=== PATIENT | male | born 1950 | race Hispanic/Latino ===

== ENCOUNTER 2018-09-24 11:35 | Observation (INO) | payer BC, OTHER ==
--- NOTE | 2018-09-24 12:26 | EKG ---
Test Date: 2018-09-24 Test Time: 11:39:35 Trading Specialist: BAILEY MEASUREMENT RESULTS: Intervals: Rate: 83 KS: 148 QRSD: 84 QT: 372 QTc: 437 [place]: P: 47 KS: 148 QRS: 14 T: 109 INTERPRETIVE STATEMENTS: Normal sinus rhythm Moderate voltage criteria for LVH, may be normal variant Inferior infarct, age undetermined Abnormal ECG Compared to ECG 12/22/2014 09:21:13 T-wave abnormality no longer present Possible ischemia no longer present Myocardial infarct finding still present Electronically Signed On 09-24-18 12:25:26 [employer] by Elvis Florez
--- NOTE | 2018-09-24 12:31 | RAD REPORT ---
EXAM DESCRIPTION: CT - Head Brain Wo Cont - 09/24/2018 12:17 pm CLINICAL HISTORY: HEADACHE Hypertension, headache, diabetes. COMPARISON: Head Brain Wo Cont dated 09/25/2016 TECHNIQUE: All CT scans are performed using dose optimization technique as appropriate and may inclu de automated exposure control or mA/KV adjustment according to patient size. FINDINGS: No intracranial hemorrhage, hydrocephalus or extra-axial fluid collection.No areas of brai n edema or evidence of midline shift. The paranasal sinuses and mastoids are clear. The calvarium is intact. Vertebral arteries are atheros clerotic. IMPRESSION: No acute intracranial abnormality.
[2018-09-24] MEDS ORDERED: ONDANSETRON 4 MG/2 ML VIAL ONE (12:41)
[2018-09-24] MEDS ORDERED: MORPHINE 4 MG/ML SYR ONE (12:41)
[2018-09-24 12:48] LABS: Absolute Lymphocytes (CBC) 0.6 K/uL (0.7-4.9); Absolute Monocytes 0.3 K/uL (0.1-1.3); Absolute Neutrophil 6.4 K/uL (1.8-8.0); Basophils % 0.3 % (0-1.3); Eosinophils % 5.2 % (0-4.4); Lymphocytes % 8.4 % (15.3-44.8); MPV 9.6 fL (7.6-11.3); Monocytes % 3.9 % (3.3-12.3); RBC Red Blood Cell Count 5.34 M/uL (4.33-5.43)
[2018-09-24 12:56] LABS: Protime INR 1.08
[2018-09-24 13:09] LABS: ALT/SGPT 66 U/L (12-78); AST/SGOT 43 U/L (15-37); Albumin 3.8 g/dL (3.4-5.0); Alkaline Phosphatase 70 U/L (45-117); BUN Blood Urea Nitrogen 15 mg/dL (7-18); Bicarbonate 27 mmol/L (21-32); Bilirubin Direct 0.2 mg/dL (0-0.2); Bilirubin Total 0.6 mg/dL (0.2-1.0); Glucose Level 158 mg/dL (74-106); Magnesium 1.7 mg/dL (1.8-2.4); NT PRO-BNP 44 pg/mL (<125); Potassium 4.1 mmol/L (3.5-5.1); Protein, Total 7.7 g/dL (6.4-8.2); Sodium Level 138 mmol/L (136-145); Troponin (Emerg Dept Use Only) < 0.02 ng/mL (0.0-0.045)
--- NOTE | 2018-09-24 13:50 | RAD REPORT ---
EXAM DESCRIPTION: Neela Single View09/24/2018 1:42 pm CLINICAL HISTORY: Chest pain COMPARISON: 2014 FINDINGS: The lungs appear clear of acute infiltrate. The heart is mildly enlarged. Postsurgical changes involve the chest. IMPRESSION: No acute abnormalities displayed
[2018-09-24] MEDS ORDERED: MAGNESIUM SULFATE 1 gm IVPB 1 GM/100 ML BAG IV ONE (13:57)
[2018-09-24] MEDS ORDERED: ACETAMINOPHEN 500 MG TAB ONE (14:03)
--- NOTE | 2018-09-24 15:04 | ER ---
Nurse's Notes [facility] Name: Jr Jane Age: 68 yrs Sex: Male : 1950 Arrival Date: 09/24/2018 Time: 11:40 Bed 19 Private MD: Diagnosis: Chest pain, unspecified Presentation: 09/24 11:41 Presenting complaint: EMS states: pt was at [facility] for appt, c/o midsternal chest iw pain, radiating from throat to chest, 04/19, also c/o headache and n/v. Transition of care: patient was not received from another setting of care. Onset of symptoms was September 24, 2018. Risk Assessment: Do you want to hurt yourself or someone else? Patient reports no desire to harm self or others. Initial Sepsis Screen: Does the patient meet any 2 criteria? No. Patient's initial sepsis screen is negative. Does the patient have a suspected source of infection? No. Patient's initial sepsis screen is negative. Care prior to arrival: IV initiated. 20 GA, in the right antecubital area. 11:41 Method Of Arrival: EMS: [facility] iw 11:41 Acuity: [place] 2 iw Historical: - Allergies: 11:42 PENICILLINS; iw - Home Meds: 11:49 atorvastatin 80 mg oral tab 1 tab once daily [Active]; cyanocobalamin (vitamin B-12) iw 1,000 mcg oral tab daily [Active]; gabapentin 300 mg oral cap twice a day [Active]; lisinopril 5 mg Oral tab 1 tab once daily [Active]; magnesium oxide 420 mg Oral tab daily [Active]; meloxicam 15 mg oral tab 1 tab once daily [Active]; metformin 1,000 mg Oral tr24 1 tab twice a day [Active]; ranitidine HCl 150 mg Oral cap 1 cap 2 times per day [Active]; aspirin 81 mg Oral chew 1 tab once daily [Active]; Tylenol oral oral [Active]; - PMHx: 11:42 Diabetes - NIDDM; Hypertension; Myocardial infarction; iw - PSHx: 11:42 CABG; iw - Immunization history:: Adult Immunizations up to date. - Ebola Screening: : Patient negative for fever greater than or equal to 101.5 degrees Fahrenheit, and additional compatible Ebola Virus Disease symptoms Patient denies exposure to infectious person Patient denies travel to an Ebola-affected area in the 21 days before illness onset No symptoms or risks identified at this time. - Social history:: Smoking status: unknown. Screenin:53 Abuse screen: Denies threats or abuse. Denies injuries from another. Nutritional jl7 screening: No deficits noted. Tuberculosis screening: No symptoms or risk factors identified. Fall Risk IV access (20 points). Total Valentine Fall Scale indicates No Risk (0-24 pts). Assessment: 11:53 General: Appears in no apparent distress. uncomfortable, Behavior is calm, cooperative, jl7 appropriate for age. Pain: Complains of pain in forehead and left eye Pain does not radiate. Pain currently is 8 out of 10 on a pain scale. Quality of pain is described as throbbing, Pain began this morning Is intermittent. Neuro: Level of Consciousness is awake, alert, obeys commands, Oriented to person, place, time, situation, Larry Car Operator are equal bilaterally. Cardiovascular: Heart tones S1 S2 present Patient's skin is warm and dry. Chest pain is denied Pt reports "[facility].". Respiratory: Reports shortness of breath at rest Airway is patent Respiratory effort is even, unlabored, Respiratory pattern is regular, symmetrical, Breath sounds are clear bilaterally. GI: No signs and/or symptoms were reported involving the gastrointestinal system. : No signs and/or symptoms were reported regarding the genitourinary system. EENT: No signs and/or symptoms were reported regarding the EENT system. Derm: Skin is pink, warm \\T\\ dry. Musculoskeletal: 13:00 Reassessment: Patient appears in no apparent distress at this time. Patient and/or jl7 family updated on plan of care and expected duration. Pain level reassessed. Patient is alert, oriented x 3, equal unlabored respirations, skin warm/dry/pink. 14:02 Reassessment: Pt c/o pain in the left leg, reports "I always have this pain." Rated jl7 12/18, ERP notified, see MAR for orders. 15:00 Reassessment: Patient appears in no apparent distress at this time. Patient and/or jl7 family updated on plan of care and expected duration. Pain level reassessed. Patient is alert, oriented x 3, equal unlabored respirations, skin warm/dry/pink. 15:55 Reassessment: Pt reports "I feel like I'm running a fever." Temp 100.2, ERP notified, jl see MAR for orders. Vital Signs: 11:51 BP 126 / 88; Pulse 84; Resp 18 S; Temp 99.5(O); Pulse Ox 98% on R/A; Weight 100.24 kg jl7 (R); Height 5 ft. 8 in. (172.72 cm) (R); Pain 8/10; 14:06 BP 132 / 74; Pulse 77; Resp 18; Pulse Ox 98% on 3 lpm NC; mh5 16:45 Temp 99.7; jl7 11:51 Body Mass Index 33.60 (100.24 kg, 172.72 cm) 7 ED Course: 11:40 Patient arrived in ED. iw 11:42 Triage completed. iw 11:44 Arm band placed on. iw 11:50 EKG done, by laboratory technical specialist. reviewed by Alvaro Merino MD. 3 11:51 Jarrod Rutledge, RN is Primary Nurse. jl7 11:53 Patient has correct armband on for positive identification. Bed in low position. Call [facility] light in reach. Side rails up X 1. recovery collector on. Pulse ox on. NIBP on. Warm blanket given. 11:53 Maintain EMS IV. Dressing intact. Good blood return noted. Site clean \\T\\ dry. Gauge \\T\\ jl 7 site: 20 right AC. Patient maintains SpO2 saturation greater than 95% on room air. 11:56 [facility]. cp 11:56 Alvaro Merino MD is Attending Physician. cp 12:14 CT completed. Patient tolerated procedure well. Patient moved to CT via wheelchair. jg6 Patient moved back from CT. 12:17 CT Head Brain wo Cont In Process Unspecified. EDMS 13:43 XRAY Chest (1 view) In Process Unspecified. EDMS 15:03 Alyson Wang MD is Hospitalizing Provider. cp 16:40 Influenza Screen (a \\T\\ B) Sent. jl7 16:58 Urine collected: clean catch specimen, clear. jl7 16:58 No provider procedures requiring assistance completed. Patient admitted, IV remains in 7 place. intact, No redness/swelling at site. Administered Medications: 12:30 Drug: Zofran 4 mg Route: IVP; Site: right antecubital; jl7 13:00 Follow up: Response: No adverse reaction jl7 12:32 Drug: morphine 2 mg Route: IVP; Site: right antecubital; jl7 13:00 Follow up: Response: No adverse reaction; Pain is decreased jl7 14:00 Drug: Magnesium Sulfate 1 grams Route: IVPB; Infused Over: 1 hrs; Site: right jl7 antecubital; 15:00 Follow up: Response: No adverse reaction; IV Status: Completed infusion jl7 14:06 Drug: Tylenol 1000 mg Route: PO; jl7 15:00 Follow up: Response: No adverse reaction; Pain is decreased jl7 15:58 Drug: Motrin 800 mg Route: PO; jl7 16:45 Follow up: Temp 99.7; Response: No adverse reaction; Temperature is decreased 7 Point of Care Testing: Blood Glucose: 11:51 Blood Glucose: 178 mg/dL; 7 Ranges: Outcome: 15:03 Decision to Hospitalize by Provider. cp 16:58 Admitted to Tele accompanied by tech, family with patient, via wheelchair, room 408, jl with oxygen, with chart, Report called to CHANTELLE Salazar 16:58 Condition: stable 16:58 Discharge instructions given to patient, family, Instructed on the need for admit, Demonstrated understanding of instructions. 17:00 Patient left the ED. 7 Signatures: Dispatcher [employer] Regine Herrera, Travis Laureano RN, PA PA cp Martinez, Maria 5 Jarrod Rutledge RN RN jl7 Lorraine James 3 Edie Monroe jg6
--- NOTE | 2018-09-24 15:04 | EDPHYS ---
Physician Documentation [facility] Name: Jr Jane Age: 68 yrs Sex: Male : 1950 Arrival Date: 09/24/2018 Time: 11:40 Bed 19 Private MD: ED Physician Alvaro Merino HPI: 09/24 12:10 This 68 yrs old Male presents to ER via EMS with complaints of Chest Pain. cp Historical: - Allergies: 11:42 PENICILLINS; iw - Home Meds: 11:49 atorvastatin 80 mg oral tab 1 tab once daily [Active]; cyanocobalamin (vitamin B-12) iw 1,000 mcg oral tab daily [Active]; gabapentin 300 mg oral cap twice a day [Active]; lisinopril 5 mg Oral tab 1 tab once daily [Active]; magnesium oxide 420 mg Oral tab daily [Active]; meloxicam 15 mg oral tab 1 tab once daily [Active]; metformin 1,000 mg Oral tr24 1 tab twice a day [Active]; ranitidine HCl 150 mg Oral cap 1 cap 2 times per day [Active]; aspirin 81 mg Oral chew 1 tab once daily [Active]; Tylenol oral oral [Active]; - PMHx: 11:42 Diabetes - NIDDM; Hypertension; Myocardial infarction; iw - PSHx: 11:42 CABG; iw - Immunization history:: Adult Immunizations up to date. - Ebola Screening: : Patient negative for fever greater than or equal to 101.5 degrees Fahrenheit, and additional compatible Ebola Virus Disease symptoms Patient denies exposure to infectious person Patient denies travel to an Ebola-affected area in the 21 days before illness onset No symptoms or risks identified at this time. - Social history:: Smoking status: unknown. ROS: 12:15 Constitutional: Negative for body aches, chills, fever, poor PO intake. cp 12:15 Eyes: Negative for injury, pain, redness, and discharge. cp 12:15 Neck: Positive for radiating pain. cp 12:15 Cardiovascular: Positive for chest pain, Negative for edema, palpitations. 12:15 Respiratory: Negative for cough, shortness of breath, wheezing. 12:15 Abdomen/GI: Negative for abdominal pain, nausea, vomiting, and diarrhea, black/tarry stool, rectal bleeding. 12:15 Back: Negative for pain at rest, pain with movement. 12:15 MS/extremity: Negative for paresthesias. 12:15 Skin: Negative for cellulitis, rash. 12:15 Neuro: Positive for headache, Negative for altered mental status, syncope, weakness. 12:15 All other systems are negative. Exam: 11:50 ECG was reviewed by the Attending Physician. cp 12:15 Constitutional: The patient appears in no acute distress, alert, awake, cp non-diaphoretic, non-toxic, well developed, well nourished. 12:15 Head/Face: Normocephalic, atraumatic. Eyes: Pupils equal round and reactive to light, cp extra-ocular motions intact. Lids and lashes normal. Conjunctiva and sclera are non-icteric and not injected. Cornea within normal limits. Periorbital areas with no swelling, redness, or edema. ENT: Nares patent. No nasal discharge, no septal abnormalities noted. Tympanic membranes are normal and external auditory canals are clear. Oropharynx with no redness, swelling, or masses, exudates, or evidence of obstruction, uvula midline. Mucous membranes moist. Neck: Trachea midline, no thyromegaly or masses palpated, and no cervical lymphadenopathy. Supple, full range of motion without nuchal rigidity, or vertebral point tenderness. No Meningismus. Chest/axilla: Normal chest wall appearance and motion. Nontender with no deformity. No lesions are appreciated. 12:15 Cardiovascular: Rate: normal, Rhythm: regular, Pulses: Pulses are 2+ in right radial artery and left radial artery. Edema: is not appreciated, JVD: is not appreciated. 12:15 Respiratory: the patient does not display signs of respiratory distress, Respirations: normal, no use of accessory muscles, no retractions, no splinting, no tachypnea, labored breathing, is not present, Breath sounds: are clear throughout, no decreased breath sounds, no stridor, no wheezing. 12:15 Abdomen/GI: Inspection: abdomen appears normal, Bowel sounds: active, all quadrants, Palpation: abdomen is soft and non-tender, in all quadrants. 12:15 Back: pain, is absent, ROM is normal. 12:15 Musculoskeletal/extremity: Exam is negative for decreased range of motion, deformity, injury. 12:15 Skin: cellulitis, is not appreciated, no rash present. 12:15 Neuro: Orientation: to person, place \T\ time. Mentation: is normal, Cerebellar function: is grossly normal, Motor: moves all fours, strength is normal, Sensation: is normal. Vital Signs: 11:51 BP 126 / 88; Pulse 84; Resp 18 S; Temp 99.5(O); Pulse Ox 98% on R/A; Weight 100.24 kg jl7 (R); Height 5 ft. 8 in. (172.72 cm) (R); Pain 8/10; 14:06 BP 132 / 74; Pulse 77; Resp 18; Pulse Ox 98% on 3 lpm NC; mh5 16:45 Temp 99.7; jl7 11:51 Body Mass Index 33.60 (100.24 kg, 172.72 cm) jl7 MDM: 11:56 Patient medically screened. cp 12:30 Differential diagnosis: acute myocardial infarction, acute pericarditis, chest wall cp pain, esophagitis, gastritis, pneumonia, pneumothorax, pulmonary embolus, stable angina, thoracic aortic disection, unstable angina. 15:00 The patient was not given aspirin in the Emergency Department. Patient reports taking aspirin within the past 24 hours. 15:00 Data reviewed: vital signs, nurses notes, lab test result(s), EKG, radiologic studies, cp plain films. Test interpretation: by ED physician or midlevel provider: ECG, plain radiologic studies. 15:01 Physician consultation: Alyson Wang MD was called at 15:01, was contacted at 15:02, regarding admission, to the telemetry unit. patient's condition. 09/24 12:03 Order name: Basic Metabolic Panel; Complete Time: 13:32 cp 09/24 12:03 Order name: CBC with Diff; Complete Time: 13:32 cp 09/24 12:03 Order name: LFT's; Complete Time: 13:32 cp 09/24 12:03 Order name: Magnesium; Complete Time: 13:32 cp 09/24 12:03 Order name: NT PRO-BNP; Complete Time: 13:32 cp 09/24 12:03 Order name: PT-INR; Complete Time: 13:32 cp 09/24 12:03 Order name: Troponin (emerg Dept Use Only); Complete Time: 13:32 cp 09/24 12:03 Order name: XRAY Chest (1 view); Complete Time: 13:56 cp 09/24 12:03 Order name: CT Head Brain wo Cont; Complete Time: 13:32 cp 09/24 15:54 Order name: Influenza Screen (a \T\ B) cp 09/24 16:49 Order name: Influenza Screen (A EDMS 09/24 12:03 Order name: EKG; Complete Time: 12:04 cp 09/24 12:03 Order name: Cardiac monitoring; Complete Time: 12:48 cp 09/24 12:03 Order name: EKG - Nurse/Tech; Complete Time: 12:47 cp 09/24 12:03 Order name: IV Saline Lock; Complete Time: 12:47 cp 09/24 12:03 Order name: Labs collected and sent; Complete Time: 12:47 cp 09/24 12:03 Order name: O2 Per Protocol; Complete Time: 12:47 cp 09/24 12:03 Order name: O2 Sat Monitoring; Complete Time: 12:47 cp 09/24 15:54 Order name: Urine Dipstick-Ancillary (obtain specimen); Complete Time: 16:40 cp EC:50 Rate is 83 beats/min. Rhythm is regular. KS interval is normal. QRS interval is normal. cp QT interval is normal. T waves are Inverted in lead aVL. Interpreted by me. Reviewed by me. Administered Medications: 12:30 Drug: Zofran 4 mg Route: IVP; Site: right antecubital; jl7 13:00 Follow up: Response: No adverse reaction jl7 12:32 Drug: morphine 2 mg Route: IVP; Site: right antecubital; jl7 13:00 Follow up: Response: No adverse reaction; Pain is decreased jl7 14:00 Drug: Magnesium Sulfate 1 grams Route: IVPB; Infused Over: 1 hrs; Site: right jl7 antecubital; 15:00 Follow up: Response: No adverse reaction; IV Status: Completed infusion jl7 14:06 Drug: Tylenol 1000 mg Route: PO; jl7 15:00 Follow up: Response: No adverse reaction; Pain is decreased jl7 15:58 Drug: Motrin 800 mg Route: PO; jl7 16:45 Follow up: Temp 99.7; Response: No adverse reaction; Temperature is decreased jl7 Point of Care Testing: Blood Glucose: 11:51 Blood Glucose: 178 mg/dL; jl7 Ranges: Critical Glucose Levels:Adult <50 mg/dl or >400 mg/dl <40 mg/dl or >180 mg/dl Disposition: 18:04 Co-signature as Attending Physician, Alvaro Merino MD Available for consultation at ps1 all times . Disposition: 09/24/18 15:03 Hospitalization ordered by Alyson Wang for Observation. Preliminary diagnosis is Chest pain, unspecified. - Bed requested for Telemetry/MedSurg (observation). - Status is Observation. jl7 - Condition is Stable. - Problem is new. - Symptoms have improved. UTI on Admission? No Signatures: Dispatcher [employer] EDMS Regine Rocha RN RN iw Solis, Maria ms Travis Doshi PA PA cp Leal, Jahala, RN RN jl7 Singer, Phillip, MD MD ps1 Corrections: (The following items were deleted from the chart) 15:56 15:03 Hospitalization Ordered by Alyson Wang MD for Observation. Preliminary diagnosis ms is Chest pain, unspecified. Bed requested for Telemetry/MedSurg (observation). Status is Observation. Condition is Stable. Problem is new. Symptoms have improved. UTI on Admission? No. cp 17:00 15:56 09/24/2018 15:03 Hospitalization Ordered by Alyson Wang MD for Observation. jl7 Preliminary diagnosis is Chest pain, unspecified. Bed requested for Telemetry/MedSurg (observation). Status is Observation. Condition is Stable. Problem is new. Symptoms have improved. UTI on Admission? No. ms
[2018-09-24] MEDS ORDERED: IBUPROFEN 400 MG TAB ONE (16:05)
[2018-09-24] MEDS ORDERED: ACETAMINOPHEN 500 MG TAB PO PRN (17:11)
[2018-09-24] MEDS ORDERED: MORPHINE 4 MG/ML SYR IV PRN ×2 (17:11→17:45)
[2018-09-24] MEDS: INSULIN -REGULAR HUMAN 50 UNIT/0.5 ML ML SQ SCH ×2 (17:11→21:00)
[2018-09-24 17:15] VITALS: BMI 33.5
[2018-09-24] MEDS ORDERED: NITROGLYCERIN 0.4 MG/TAB SL PRN (17:29)
[2018-09-24] MEDS ORDERED: TRAMADOL HCL 50 MG TAB PO PRN (17:48)
[2018-09-24] MEDS: ENOXAPARIN 40 MG/0.4 ML SQ SCH (17:50)
[2018-09-24] MEDS ORDERED: PNEUMOCOCCAL VACCINE 0.5 ML IMVAC ONE (18:00)
[2018-09-24 18:48] LABS: Urine Appearance CLEAR; Urine Blood NEGATIVE (NEG); Urine Color DK YELLOW; Urine Glucose NEGATIVE (NEG); Urine Protein TRACE (NEG); Urine Specific Gravity >=1.030 (1.005-1.030); Urine Urobilinogen 0.2 mg/dL (0.2-1.0); Urine pH 5.5 (5.0-7.0)
[2018-09-24 19:06] LABS: Urine Bilirubin NEGATIVE (NEG)
[2018-09-24 19:07] LABS: Urine Microscopic Reflex ORDER UMIC
[2018-09-24 19:16] LABS: Urine Bacteria <20 /HPF (NONE SEEN); Urine Culture Reflex Order NOT NEEDED; Urine RBC NONE SEEN /HPF (NONE SEEN)
[2018-09-24] MEDS ORDERED: MAGNESIUM HYDROXIDE 8% 30 ML PO ONE (20:37)
--- NOTE | 2018-09-24 20:50 | P.HP ---
Certification for Inpatient Patient admitted to: Observation Practitioner: I am a practitioner with admitting privileges, knowledge of patient current condition, hospital course, and medical plan of care. Services: Services provided to patient in accordance with Admission requirements found in Title 42 Section 412.3 of the Code of Federal Regulations Patient History Date of Service: 09/24/18 Reason for admission: Chest pain History of Present Illness: This is a 68 yr old male with hx of quadruple bypass, 7 coronary stent placements prior to the bypass, HTN, HLD, NIDDM, CAD admitted for chest pain. Per patient, chest pain started the morning of admission, while he was [facility]. It was substernal pressure like pain, radiating up to the neck and to his left shoulder/upper arm. It was associated with nausea, dizziness, and weakness. At baseline, pt states that he will use a walker at home if he needs it otherwise he does well. His weakness has been progressive and along with his chest pain, scared him and was brought to the ED via EMS. In the ED, his trop was negative x 1, EKG with NSR and evidence of LVH along with old infarct, and per ED, there was an attempt to transfer patient [facility] the [facility] that was unsuccessful as there were no beds available. At the time of my exam, patient was AAOx4, in no acute distress, was comfortably eating in bed and his only complain was a headache. His chest pain had completely resolved. Of note, patient's claims representative is at the [facility] but patient has not had any cardiac workup or seen his claims representative in 2 years. Allergies Penicillins Adverse Reaction (Verified 12/21/14 21:58) chest feels like it will explode PCN Allergy (Uncoded 12/24/14 18:45) Unknown Home Medications: Cyanocobalamin (Vitamin B-12) [Vitamin B-12] 1,000 mcg PO DAILY 07/12/12 Ferrous Gluconate 325 mg PO BID 07/12/12 Metformin HCl 500 mg PO BID 07/12/12 Metoprolol Tartrate 25 mg PO BID #0 tablet 07/13/12 Atorvastatin Calcium [Lipitor] 40 mg PO DAILY 12/21/14 Cyclobenzaprine [Flexeril*] 10 mg PO BIDP PRN 12/21/14 Ciprofloxacin HCl [Cipro 500 MG Tablet] 500 mg PO BID #14 tablet 12/24/14 - Past Medical/Surgical History Has patient received pneumonia vaccine in the past: No Diabetic: Yes -: HIGH CHOLESTEROL -: HTN -: NIDDM -: CHEST WALL INJURY -: CABG - Social History Smoking Status: Former smoker Alcohol use: No CD- Drugs: No Caffeine use: No Place of Residence: Home Review of Systems 10-point ROS is otherwise unremarkable Physical Examination - Vital Signs Temperature: 99.7 F Blood Pressure: 132/74 Pulse: 77 Respirations: 18 - Physical Exam General: Alert, In no apparent distress, Oriented x3 HEENT: Atraumatic, PERRLA, Mucous membr. moist/pink, EOMI, Sclerae nonicteric Neck: Supple, 2+ carotid pulse no bruit, No LAD, Without JVD or thyroid abnormality Respiratory: Clear to auscultation bilaterally, Normal air movement Cardiovascular: Regular rate/rhythm, Normal S1 S2 Gastrointestinal: Normal bowel sounds, No tenderness Musculoskeletal: No tenderness Integumentary: No rashes Neurological: Normal gait, Normal speech, Normal strength at 5/5 x4 extr, Normal tone, Normal affect Lymphatics: No axilla or inguinal lymphadenopathy - Studies Laboratory Data (last 24 hrs) 09/24/18 12:00: PT 12.7 H, INR 1.08 09/24/18 12:00: WBC 7.8, Hgb 15.4, Hct 45.0, Plt Count 160 09/24/18 12:00: Sodium 138, Potassium 4.1, BUN 15, Creatinine 0.99, Glucose 158 H, Magnesium 1.7 L, Total Bilirubin 0.6, AST 43 H, ALT 66, Alkaline Phosphatase 70 Assessment and Plan - Problems (Diagnosis) (1) Chest pain Onset Date: 12/22/14 Current Visit: No Status: Acute Qualifiers: Chest pain type: unspecified Qualified Code(s): R07.9 - Chest pain, unspecified (2) Hypertension Current Visit: Yes Status: Acute Qualifiers: Hypertension type: essential hypertension Qualified Code(s): I10 - Essential (primary) hypertension (3) HLD (hyperlipidemia) Current Visit: Yes Status: Acute Qualifiers: Hyperlipidemia type: unspecified Qualified Code(s): E78.5 - Hyperlipidemia , unspecified (4) CAD (coronary artery disease) Current Visit: Yes Status: Chronic Qualifiers: Coronary Disease-Associated Artery/Lesion type: [place] artery [place] vs. 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 insulin use: without chainsaw mechanic use Diabetes mellitus complication status: with hyperglycemia Qualified Code(s): E11.65 - Type 2 diabetes mellitus with hyperglycemia (8) Obesity (BMI 30-39.9) Current Visit: Yes Status: Chronic - Plan Chest pain, R/O ACS High risk patient: Prior CABG, stent placement, HTN, HLD, obesity, former smoker (quit in ') Chest guidelines started (pt unsure of his home medications at this time) Trend troponin, serial EKG Cardiology consult Morphine prn pain, Nitro prn cp, O2 per protocol ECHO ordered, pending HTN, essential Stable, will continue home meds as pt will get the list tomorrow NIDDM, type 2 Accu-checks and mild sliding scale insulin protocol HLD Continue home statin CAD Hx of cardiac cath Hx of coronary stenting Morbid obesity, BMI of 33.6 DVT prophylaxis: ASA and plavix GI prophylaxis: None Diet: Heart healthy, NPO after midnight Dispo: Pending cardiology evaluation. - Advance Directives Does patient have a Living Will: No Does patient have a Durable POA for Healthcare: Yes
[2018-09-24] MEDS: ATORVASTATIN 40 MG TAB PO SCH (21:26)
[2018-09-25] MEDS: METOPROLOL TAR 25 MG TAB PO SCH ×2 (06:00→17:03)
[2018-09-25 06:15] LABS: Absolute Lymphocytes (CBC) 0.4 K/uL (0.7-4.9); Absolute Monocytes 0.3 K/uL (0.1-1.3); Basophils % 0.2 % (0-1.3); Eosinophils % 6.9 % (0-4.4); Hematocrit 41.9 % (39.6-49.0); Lymphocytes % 8.6 % (15.3-44.8); MPV 9.2 fL (7.6-11.3); Monocytes % 6.2 % (3.3-12.3); RBC Red Blood Cell Count 5.05 M/uL (4.33-5.43)
[2018-09-25 06:47] LABS: Albumin 3.3 g/dL (3.4-5.0); Bilirubin Total 0.7 mg/dL (0.2-1.0); Potassium 3.8 mmol/L (3.5-5.1); Protein, Total 6.8 g/dL (6.4-8.2)
[2018-09-25] MEDS ORDERED: MAGNESIUM SULFATE 1 gm IVPB 1 GM/100 ML BAG IV ONE (07:29)
[2018-09-25] MEDS: INSULIN -REGULAR HUMAN 50 UNIT/0.5 ML ML SQ SCH ×4 (07:30→21:00)
[2018-09-25] MEDS ORDERED: KCL 20 MEQ/100 mL IVPB 20 MEQ/100 ML BAG IV SCH (08:00)
[2018-09-25] MEDS: ENOXAPARIN 40 MG/0.4 ML SQ SCH (08:28)
[2018-09-25] MEDS: LISINOPRIL 10 MG TAB PO SCH (08:28)
[2018-09-25] MEDS ORDERED: NA CHLORIDE 0.9% 100 ML ONE (08:33)
--- NOTE | 2018-09-25 12:30 | CON ---
CARDIOLOGY CONSULT History Of Present Illness: Mr. Jane is 68. He came to the hospital at the insistence of the doc [facility] the [facility] because he is having chest pain. He has had chest pain for several months. It is not particularly worse recently than it has been. Does not seem to be related to exertion, meals or time of day, body position. He has a history of CAD. He has had 7 different coronary stent proc edures done at various hospitals. We have none of those records. coronary intervention. He is a reluctant patient to go see the doctor and when he finally went to see the doctors at the [facility] , they thought he was having too much chest pain and placed him in the hospital and sent him to our h ospital. Since he has been here overnight, he does not have any chest pain, has normal enzymes. His electrocardiograms cannot show an injury pattern or a convincing ischemia pattern. Home Medications: Atorvastatin 80, vitamin B12 tablets sublingual, gabapentin, lisinopril 5, magnesi um oxide 420, meloxicam 15, metformin 1000 twice a day, ranitidine 150 Allergies: HE IS ALLERGIC TO PENICILLIN. Social History: He uses no tobacco. He quit when he started having coronary heart problem. Physical Examination: General: He is alert, oriented, pleasant, not in distress. Vital Signs: 5 feet 8 inches, 221 pounds, centripetal obesity. HEENT: Normal. Lungs: Clear. Heart: S4 gallop, otherwise normal. Abdomen: Soft Extremities: Palpable pulses. No cyanosis, clubbing, or edema. Laboratory Data: EKG; LVH, nonspecific repolarization abnormality, old inferior infarction. Chest x -ray; no acute abnormality. Sternal wires are noted in the report as we would expect. His troponin levels are all less than 0.02. His complete blood count is normal. Blood sugars have been 137 . Impression: Mr. Jane has coronary artery disease with chest pain. We should do a pharmacologic n uclear stress test and see what we learn. If he needs a heart cath, we can do that. DONATO/PATRICK Voice ID: [id number] Report ID: [id number]
--- NOTE | 2018-09-25 12:40 | P.PN ---
Subjective Date of Service: 09/25/18 Chief Complaint: Chest pain Subjective: No C/O voiced, Improving Patient seen and examined at bedside. at bedside. Chart reviewed and case discussed with nursing staff. Review of Systems 10-point ROS is otherwise unremarkable Physical Examination - Vital Signs Temperature: 97.3 F Blood Pressure: 134/72 Pulse: 78 Respirations: 18 Pulse Ox (%): 96 - Physical Exam General: Alert, In no apparent distress, Oriented x3 HEENT: Atraumatic, PERRLA, EOMI Neck: Supple, JVD not distended Respiratory: Clear to auscultation bilaterally, Normal air movement Cardiovascular: Regular rate/rhythm, Normal S1 S2 Gastrointestinal: Normal bowel sounds, No tenderness Musculoskeletal: No tenderness Integumentary: No rashes Neurological: Normal speech, Normal tone, Normal affect Lymphatics: No axilla or inguinal lymphadenopathy - Studies Laboratory Data (last 24 hrs) 09/24/18 12:00: PT 12.7 H, INR 1.08 09/24/18 12:00: WBC 7.8, Hgb 15.4, Hct 45.0, Plt Count 160 09/24/18 12:00: Sodium 138, Potassium 4.1, BUN 15, Creatinine 0.99, Glucose 158 H, Magnesium 1.7 L, Total Bilirubin 0.6, AST 43 H, ALT 66, Alkaline Phosphatase 70 Assessment And Plan - Current Problems (Diagnosis) (1) Chest pain Onset Date: 12/22/14 Current Visit: No Status: Acute Qualifiers: Chest pain type: unspecified Qualified Code(s): R07.9 - Chest pain, unspecified (2) Hypertension Onset Date: 09/25/18 Current Visit: Yes Status: Acute Qualifiers: Hypertension type: essential hypertension Qualified Code(s): I10 - Essential (primary) hypertension (3) HLD (hyperlipidemia) Onset Date: 09/25/18 Current Visit: Yes Status: Acute Qualifiers: Hyperlipidemia type: unspecified Qualified Code(s): E78.5 - Hyperlipidemia , unspecified (4) CAD (coronary artery disease) Onset Date: 09/25/18 Current Visit: Yes Status: Chronic Qualifiers: Coronary Disease-Associated Artery/Lesion type: [place] artery [place] vs. transplanted heart: [place] heart Associated angina: with stable angina Qualified Code(s): I25.118 - Atherosclerotic heart disease of [place] coronary artery with other forms of angina pectoris (5) Hx of four vessel coronary artery bypass graft Current Visit: Yes Status: Chronic (6) History of coronary artery stent placement Current Visit: Yes Status: Chronic (7) Diabetes mellitus Onset Date: 09/25/18 Current Visit: Yes Status: Acute Qualifiers: Diabetes mellitus type: type 2 Diabetes mellitus detention insulin use: without rat exterminator use Diabetes mellitus complication status: with hyperglycemia Qualified Code(s): E11.65 - Type 2 diabetes mellitus with hyperglycemia (8) Obesity (BMI 30-39.9) Onset Date: 09/25/18 Current Visit: Yes Status: Chronic - Plan Chest pain, R/O ACS High risk patient: Prior CABG, stent placement, HTN, HLD, obesity, former smoker (quit in 's) Continue Chest guidelines (pt unsure of his home medications at this time) Troponins negative x3, EKG without any acute abnormality Cardiology consult, recommendations appreciated Morphine prn pain, Nitro prn cp, O2 per protocol ECHO ordered, pending Stress test per cardiology HTN, essential Stable, will continue home meds as pt will get the list tomorrow NIDDM, type 2 Accu-checks and mild sliding scale insulin protocol HLD Continue home statin CAD Hx of cardiac cath Hx of coronary stenting Morbid obesity, BMI of 33.6 DVT prophylaxis: ASA and plavix GI prophylaxis: None Diet: NPO, pending stress test Dispo: Pending cardiology evaluation/stress test Time Spent Managing PTS Care (In Minutes): 35
[2018-09-25] MEDS ORDERED: REGADENOSON 0.4 MG/5 ML SYR IV ONE (13:38)
--- NOTE | 2018-09-25 14:17 | ECHO ---
HEIGHT: 5 ft 8 in WEIGHT: 221 lb 0 oz DATE OF STUDY: 09/25/[address]: Alyson Wang MD 2-DIMENSIONAL: YES M.MODE: YES DOPPLER: YES COLOR FLOW: YES TDS: NO PORTABLE: NO DEFINITY: NO BUBBLE STUDY: NO DIAGNOSIS: CHEST PAIN CARDIAC HISTORY: CATHERIZATION: YES SURGERY: YES PROSTHETIC VALVE: NO PACEMAKER: NO MEASUREMENTS (cm) DIASTOLIC (NORMALS) SYSTOLIC (NORMALS) IVSd 1.2 (0.6-1.2) LA Diam 4.7 (1.9-4.0) LVEF 60-69% LVIDd 4.0 (3.5-5.7) LVIDs 3.2 (2.0-3.5) %FS 21% LVPWd 1.2 (0.6-1.2) Ao Diam 3.2 (2.0-3.7) 2 DIMENSIONAL ASSESSMENT: RIGHT ATRIUM: NORMAL LEFT ATRIUM: DILATED RIGHT VENTRICLE: NORMAL LEFT VENTRICLE: NORMAL TRICUSPID VALVE: NORMAL MITRAL VALVE: NORMAL PULMONIC VALVE: NORMAL AORTIC VALVE: NORMAL PERICARDIAL EFFUSION: NONE AORTIC ROOT: NORMAL LEFT VENTRICULAR WALL MOTION: PARADOXICAL SEPTAL MOTION, OTHERWISE NORMAL. DOPPLER/COLOR FLOW: NORMAL COMMENTS: NORMAL LEFT VENTRICULAR EJECTION FRACTION WITH PARADOXICAL SEPTAL MOTION SEEN WITH CORONARY ARTERY BYPASS GRAFT. DILATED LEFT ATRIUM. OTHERWISE NORMAL 2D ECHOCARDIOGRAM WITH DOPPLER. TECHNOLOGIST: Allison LARA
--- NOTE | 2018-09-25 15:07 | RAD REPORT ---
EXAM DESCRIPTION: [facility] - Rest Stress Cardiac Imaging - 09/25/2018 2:54 pm CLINICAL HISTORY: CHEST PAIN Chest pain. COMPARISON: REST STRESS CARDIAC dated 12/23/2014 TECHNIQUE: The patient was administered approximately 10mCi of Tc 99m Sestamibi prior to resting SPE CT imaging of the heart. The patient was then administered approximately 30 mCi of Tc 99m Sestamibi f ollowing exercise or pharmacologic stress. Multiplanar SPECT images were reviewed. FINDINGS: No stress induced ischemic defect is seen to suggest stress induced ischemia. No fixed def ect is seen to suggest hibernating myocardium or scarred myocardium. The end diastolic volume is 109 ml, the end systolic volume is 49 ml, and the ejection fraction is 55 %. IMPRESSION: No stress induced ischemia.
--- NOTE | 2018-09-25 15:38 | TREADPHA ---
DX: CHEST PAIN Date of Study: 09/25/2018 Ht: 5 8 Wt: 221 lb 0 oz Consulting Physician: DR. CEDILLO MEDICATIONS: TYLENOL, LIPITOR, LOVENOX, NOVALIN, PRINIVIL, LOPRESSOR, MORPHINE SULFATE, NITROSTAT, ULTRAM HISTORY: 68 YEAR OLD MALE WITH COMPLAINTS OF CHEST PAIN, VOMMITING AND NAUSEA, HEADACHE. MEDICAL HISTORY: MYOCARDIAL INFARCTION, HYPERTENSION, HIGH CHOLESTEROL, NON-INSULIN DEPENDENT DIABETES MELLITUS, CORONARY ARTERY BYPASS GRAFT-2010. NON SMOKER, NON DRINKER. PHYSICIAL EXAMINATION: RESTING B.P.: 124/77 RESTING H.R.: 81 RESTING EKG: NORMAL SINUS. INFERIOR MYOCARDIAL INFARCTION. PROTOCOL: LEXISCAN EXERCISE TIME: 3:30 B.P. AT [place] STRESS: 124/68 IMPRESSION: LEXISCAN INJECTED, FOLLOWED BY CARDIOLITE PER PROTOCOL. SEE NUCLEAR MEDICINE REPORT. NO SUPRAVENTRICULAR TACHYCARDIA. NO VENTRICULAR TACHYCARDIA. NO PREMATURE ATRIAL COMPLEXES. NO PREMATURE VENTRICULAR COMPLEXES. PATIENT REPORTS 0/10 CHEST PAIN OR TIGHTNESS THROUGHOUT PRECEDURE AND DURING RECOVERY. NONDIAGNOSTIC ELECTROCARDIOGRAM LEXISCAN STUDY.
[2018-09-25] MEDS: ATORVASTATIN 40 MG TAB PO SCH (21:08)
[2018-09-26 04:37] LABS: Magnesium 2.3 mg/dL (1.8-2.4); Potassium 4.1 mmol/L (3.5-5.1)
[2018-09-26] MEDS: METOPROLOL TAR 25 MG TAB PO SCH (06:05)
[2018-09-26] MEDS: INSULIN -REGULAR HUMAN 50 UNIT/0.5 ML ML SQ SCH (07:30)
[2018-09-26 09:01] VITALS: BP 99/64; TEMP 98.2
[2018-09-26] MEDS: LISINOPRIL 10 MG TAB PO SCH (09:05)
[2018-09-26] MEDS: ENOXAPARIN 40 MG/0.4 ML SQ SCH (09:05)
[2018-09-26 11:02] VITALS: O2SAT 99
--- NOTE | 2018-09-26 12:01 | P.SSS ---
Patient History Date of Service: 09/26/18 Primary Care Provider: [facility] Reason for admission: Chest pain History of Present Illness: This is a 68 yr old male with hx of quadruple bypass, 7 coronary stent placements prior to the bypass, HTN, HLD, NIDDM, CAD admitted for chest pain. Per patient, chest pain started the morning of admission, while he was sitting at the [facility] for his regular appointment. It was substernal pressure like pain, radiating up to the neck and to his left shoulder/upper arm. It was associated with nausea, dizziness, and weakness. At baseline, pt states that he will use a walker at home if he needs it otherwise he does well. His weakness has been progressive and along with his chest pain, scared him and was brought to the ED via EMS. In the ED, his trop was negative x 1, EKG with NSR and evidence of LVH along with old infarct, and per ED, there was an attempt to transfer patient to the [facility] that was unsuccessful as there were no beds available. At the time of my exam, patient was AAOx4, in no acute distress, was comfortably eating in bed and his only complain was a headache. His chest pain had completely resolved. Of note, patient's enrollment nurse is at the [facility] but patient has not had any cardiac workup or seen his enrollment nurse in 2 years. Allergies Penicillins Adverse Reaction (Verified 12/21/14 21:58) chest feels like it will explode PCN Allergy (Uncoded 12/24/14 18:45) Unknown Home Medications: Acetaminophen 500 mg PO DAILY PRN 09/25/18 Amitriptyline [Elavil*] 1 tab PO BEDTIME 09/25/18 Aspirin 81 mg PO DAILY 09/25/18 Atorvastatin Calcium [Lipitor] 40 mg PO BEDTIME 09/25/18 Cyanocobalamin (Vitamin B-12) [Vitamin B-12] 1,000 mcg PO DAILY 09/25/18 Lisinopril 5 mg PO DAILY 09/25/18 Magnesium Oxide 420 mg PO BEDTIME 09/25/18 Meloxicam 15 mg PO DAILY 09/25/18 Metformin HCl 1,000 mg PO BID 09/25/18 Ranitidine HCl [Zantac] 150 mg PO BID 09/25/18 Metoprolol Tartrate [Lopressor*] 12.5 mg PO BID #30 tab 09/26/18 - Past Medical/Surgical History Has patient received pneumonia vaccine in the past: No Diabetic: Yes -: HIGH CHOLESTEROL -: HTN -: NIDDM -: CHEST WALL INJURY -: CABG - Social History Smoking Status: Former smoker Alcohol use: No CD- Drugs: No Caffeine use: No Place of Residence: Home Review of Systems 10-point ROS is otherwise unremarkable Physical Examination - Vital Signs Temperature: 98.2 F Blood Pressure: 99/64 Pulse: 63 Respirations: 16 Pulse Ox (%): 100 - Physical Exam General: Alert, In no apparent distress, Oriented x3 HEENT: Atraumatic, PERRLA, Mucous membr. moist/pink, EOMI, Sclerae nonicteric Neck: Supple, 2+ carotid pulse no bruit, No LAD, Without JVD or thyroid abnormality Respiratory: Clear to auscultation bilaterally, Normal air movement Cardiovascular: Regular rate/rhythm, Normal S1 S2 Gastrointestinal: Normal bowel sounds, No tenderness Musculoskeletal: No tenderness Integumentary: No rashes Neurological: Normal gait, Normal speech, Normal strength at 5/5 x4 extr, Normal tone, Normal affect Lymphatics: No axilla or inguinal lymphadenopathy - Diagnosis (Problem(s)) (1) Chest pain Onset Date: 12/22/14 Current Visit: No Status: Acute Qualifiers: Chest pain type: unspecified Qualified Code(s): R07.9 - Chest pain, unspecified (2) Hypertension Onset Date: 09/25/18 Current Visit: Yes Status: Acute Qualifiers: Hypertension type: essential hypertension Qualified Code(s): I10 - Essential (primary) hypertension (3) HLD (hyperlipidemia) Onset Date: 09/25/18 Current Visit: Yes Status: Acute Qualifiers: Hyperlipidemia type: unspecified Qualified Code(s): E78.5 - Hyperlipidemia , unspecified (4) CAD (coronary artery disease) Onset Date: 09/25/18 Current Visit: Yes Status: Chronic Qualifiers: Coronary Disease-Associated Artery/Lesion type: [place] artery [place] vs. transplanted heart: [place] heart Associated angina: with stable angina Qualified Code(s): I25.118 - Atherosclerotic heart disease of [place] coronary artery with other forms of angina pectoris (5) Hx of four vessel coronary artery bypass graft Current Visit: Yes Status: Chronic (6) History of coronary artery stent placement Current Visit: Yes Status: Chronic (7) Diabetes mellitus Onset Date: 09/25/18 Current Visit: Yes Status: Acute Qualifiers: Diabetes mellitus type: type 2 Diabetes mellitus snf insulin use: without snf use Diabetes mellitus complication status: with hyperglycemia Qualified Code(s): E11.65 - Type 2 diabetes mellitus with hyperglycemia (8) Obesity (BMI 30-39.9) Onset Date: 09/25/18 Current Visit: Yes Status: Chronic Treatment Summary: Chest pain High risk patient: Prior CABG, stent placement, HTN, HLD, obesity, former smoker (quit in 's) Started on metoprolol, PORTILLO-inhibitor, aspirin and Plavix along with statin. Medications changed over to home medications with the reconciled. Troponins negative x3, EKG without any acute abnormality Cardiology consulted, cleared for discharge Morphine prn pain, Nitro prn cp, O2 per protocol - chest pain improved, almost resolved. ECHO unremarkable. Negative stress test He remained hemodynamically stable, alert oriented x3 and otherwise stable throughout the stay. He will need to follow up with his outpatient enrollment nurse in the next 2 weeks. Counseled on importance of following up outpatient with Cardiology and primary care physicians. HTN, essential Remained stable Added metoprolol at discharge NIDDM, type 2 HLD CAD Hx of cardiac cath Hx of coronary stenting Morbid obesity, BMI of 33.6 counseled on lifestyle modifications with diet and exercise. Stable, no medication changes made at the time of discharge - Disposition Disposition: ROUTINE DISCHARGE Condition: GOOD Consultations: Cardiology Patient Discharge Instructions: Please follow up with the primary care physician 1 week. Please follow up with the primary enrollment nurse in 1-2 weeks. New medication: Metoprolol Diet: AHA Activity: Ad edna Time Spent Managing Pts Care (In Minutes): 55
== END 2018-09-26 12:14 | disposition home or self-care (01) ==
LOC: ER 11:35 → ERHOLD 15:23 → 4TH 16:52
PROVIDERS: ADMIT Family Medicine; ATTEND Family Medicine
DX: R07.9 Chest pain, unspecified (principal); I10 Essential (primary) hypertension; E78.5 Hyperlipidemia, unspecified; I25.10 Atherosclerotic heart disease of native coronary artery without angina pectoris; E11.9 Type 2 diabetes mellitus without complications; Z95.1 Presence of aortocoronary bypass graft; Z87.891 Personal history of nicotine dependence; E66.9 Obesity, unspecified; Z68.33 Body mass index [BMI] 33.0-33.9, adult; Z95.5 Presence of coronary angioplasty implant and graft; Z88.0 Allergy status to penicillin
CPT/HCPCS: 36415; 70450; 71045; 78452; 80048; 80053; 80076; 81003; 81015; 82962; 83735; 83880; 84484; 85025; 85610; 87086; 87088; 87804; 93005; 93017; 93306; 94760; 96365; 96375; 99285; A9500; G0378; J1650; J2405; J2785; J3475

== ENCOUNTER 2018-10-20 17:05 | Emergency (ER) | payer BC, OTHER ==
--- NOTE | 2018-10-20 19:07 | RAD REPORT ---
EXAM DESCRIPTION: RAD - Chest Single View - 10/20/2018 5:56 pm CLINICAL HISTORY: Cough and congestion, productive cough COMPARISON: September 24 TECHNIQUE: AP portable chest image was obtained 1750 hours . FINDINGS: No focal lung parenchymal process. Interstitial markings are similar to comparison. Sterno terrell wires are in place. Heart and vasculature are normal. No measurable pleural effusion and no pneu mothorax. No acute bony abnormality seen. No acute aortic findings suspected. IMPRESSION: No acute cardiopulmonary process. Chest findings are not significantly different from September 24.
[2018-10-20] MEDS ORDERED: IPRATROPIUM BROM 0.5MG/2.5ML ONE (19:25)
[2018-10-20] MEDS ORDERED: ALBUTEROL 2.5 MG/3 ML NEB SOL ONE (19:25)
[2018-10-20] MEDS ORDERED: AZITHROMYCIN 250 MG TAB ONE (19:25)
--- NOTE | 2018-10-20 19:36 | EDPHYS ---
Physician Documentation [facility] Name: Jr Jane Age: 68 yrs Sex: Male : 1950 Arrival Date: 10/20/2018 Time: 17:06 Bed 28 Private MD: None, None ED Physician Tyler Seymour HPI: 10/20 19:34 This 68 yrs old Male presents to ER via Ambulatory with complaints of Chest snw Congestion. 19:34 The patient or guardian reports cough, flu symptoms, low-grade fever, myalgias, no snw appetite. Onset: The symptoms/episode began/occurred 6 day(s) ago, and became persistent. Modifying factors: The symptoms are alleviated by nothing. Severity of symptoms: At their worst the symptoms were moderate. The patient has not experienced similar symptoms in the past. The patient has not recently seen a physician. grandchild with sinusitis and daughter with pharyngitis. Historical: - Allergies: 17:26 PENICILLINS; hb - Immunization history:: Adult Immunizations up to date. - Social history:: Smoking status: Patient/guardian denies using tobacco. - Ebola Screening: : No symptoms or risks identified at this time. ROS: 19:32 Eyes: Negative for injury, pain, redness, and discharge. snw 19:32 Cardiovascular: Negative for chest pain, palpitations, and edema. 19:32 Abdomen/GI: Negative for abdominal pain, nausea, vomiting, diarrhea, and constipation, Back: Negative for injury and pain, : Negative for injury, bleeding, discharge, and swelling, MS/Extremity: Negative for injury and deformity, Skin: Negative for injury, rash, and discoloration. 19:32 Constitutional: Positive for body aches, fatigue, malaise, poor PO intake. 19:32 ENT: Positive for sinus congestion, sore throat. 19:32 Neck: Positive for tenderness, of the left anterior aspect of neck. 19:32 Respiratory: Positive for cough. 19:32 Neuro: Positive for headache. Exam: 19:31 Head/Face: Normocephalic, atraumatic. Eyes: Pupils equal round and reactive to light, snw extra-ocular motions intact. Lids and lashes normal. Conjunctiva and sclera are non-icteric and not injected. Cornea within normal limits. Periorbital areas with no swelling, redness, or edema. 19:31 Chest/axilla: Normal chest wall appearance and motion. Nontender with no deformity. No lesions are appreciated. Cardiovascular: Regular rate and rhythm with a normal S1 and S2. No gallops, murmurs, or rubs. Normal PMI, no JVD. No pulse deficits. Abdomen/GI: Soft, non-tender, with normal bowel sounds. No distension or tympany. No guarding or rebound. No evidence of tenderness throughout. Back: No spinal tenderness. No costovertebral tenderness. Full range of motion. 19:31 Skin: Warm, dry with normal turgor. Normal color with no rashes, no lesions, and no evidence of cellulitis. MS/ Extremity: Pulses equal, no cyanosis. Neurovascular intact. Full, normal range of motion. Neuro: Awake and alert, GCS 15, oriented to person, place, time, and situation. Cranial nerves II-XII grossly intact. Motor strength 5/5 in all extremities. Sensory grossly intact. Cerebellar exam normal. Normal gait. Psych: Awake, alert, with orientation to person, place and time. Behavior, mood, and affect are within normal limits. 19:31 Constitutional: The patient appears alert, awake, anxious, uncomfortable. 19:31 ENT: TM's: are normal, Nose: Nasal mucosa: edematous, Mouth: is normal, Posterior pharynx: erythema, that is moderate, Voice: is hoarse. 19:31 Neck: External neck: is normal, C-spine: appears grossly normal, Thyroid: appears normal, Lymph nodes: lymphadenopathy is appreciated, anterior cervical nodes. 19:31 Respiratory: the patient does not display signs of respiratory distress, Respirations: normal, Breath sounds: + upper airway congestion. Vital Signs: 17:25 BP 141 / 86; Pulse 76; Resp 18; Temp 98.2; Pulse Ox 97% on R/A; Pain 4/10; hb 19:22 BP 130 / 79; Pulse 82; Resp 18; Pulse Ox 100% on Nebulizer Mask; rv 19:30 BP 140 / 82; Pulse 78; Resp 18 S; Pulse Ox 98% on R/A; rv MDM: 19:03 Patient medically screened. snw 22:19 Data reviewed: vital signs, nurses notes. Data interpreted: Pulse oximetry: on room air snw is 98 %. Interpretation: normal. Counseling: I had a detailed discussion with the patient and/or guardian regarding: the historical points, exam findings, and any diagnostic results supporting the discharge/admit diagnosis, the presence of at least one elevated blood pressure reading (>120/80) during this emergency department visit, lab results, radiology results, the need for outpatient follow up, to return to the emergency department if symptoms worsen or persist or if there are any questions or concerns that arise at home. Special discussion: I have referred the patient to see his PCP for further evaluation of high blood pressure. Based on the history and exam findings, there is no indication for further emergent testing or inpatient evaluation. I discussed with the patient/guardian the need to see the primary care provider for further evaluation of the symptoms. 10/20 17:26 Order name: Flu; Complete Time: 18:36 hb 10/20 17:26 Order name: Strep; Complete Time: 18:36 hb 10/20 17:27 Order name: Chest Single View XRAY; Complete Time: 19:16 hb 10/20 18:03 Order name: Throat Culture EDMS Administered Medications: 19:18 Drug: Zithromax 500 mg Route: PO; rv 19:18 Drug: Albuterol - atroVENT (3:1) (2.5 mg - 0.5 mg) 3 ml Route: Nebulizer; rv Disposition: 10/20/18 19:36 Discharged to Home. Impression: Acute bronchitis, unspecified. - Condition is Stable. - Discharge Instructions: Acute Bronchitis, Adult, Rehydration, Adult. - Prescriptions for Zyrtec 10 mg Oral Tablet - take 1 tablet by ORAL route once daily As needed; 20 tablet. Tessalon Perles 100 mg Oral Capsule - take 1 capsule by ORAL route every 8 hours As needed; 15 capsule. Zithromax 500 mg Oral Tablet - take 1 tablet by ORAL route once daily for 5 days; 5 tablet. - Work release form, Medication Reconciliation Form, Thank You Letter, Antibiotic Education, Prescription Opioid Use form. - Follow up: Private Physician; When: 2 - 3 days; Reason: Recheck today's complaints, Continuance of care, Re-evaluation by your physician. Follow up: Emergency Department; When: As needed; Reason: Worsening of condition. Addendum: 10/22/2018 07:10 Co-signature as Attending Physician, Tyler Seymour MD. r n Signatures: Dispatcher [employer] EDMS Rea Faith, ELECTRICAL ASSEMBLY TECHNICIAN-C ELECTRICAL ASSEMBLY TECHNICIAN-Csnw Tyler Seymour MD MD rn Baxter, Heather RN RN Geronimo Villalobos, CHANTELLE RN rv Corrections: (The following items were deleted from the chart) 10/20 19:56 19:36 10/20/2018 19:36 Discharged to Home. Impression: Acute bronchitis, unspecified. rv Condition is Stable. Forms are Medication Reconciliation Form, Thank You Letter, Antibiotic Education, Prescription Opioid Use. Follow up: Private Physician; When: 2 - 3 days; Reason: Recheck today's complaints, Continuance of care, Re-evaluation by your physician. Follow up: Emergency Department; When: As needed; Reason: Worsening of condition. snw
--- NOTE | 2018-10-20 19:36 | ER ---
Nurse's Notes [facility] Name: Jr Jane Age: 68 yrs Sex: Male : 1950 Arrival Date: 10/20/2018 Time: 17:06 Bed 28 Private MD: None, None Diagnosis: Acute bronchitis, unspecified Presentation: 10/20 17:24 Presenting complaint: Chest congestion, productive cough, sore throat, pain with cough, hb and diarrhea x x 6 days. Transition of care: patient was not received from another setting of care. Onset of symptoms was October 15, 2018. Risk Assessment: Do you want to hurt yourself or someone else? Patient reports no desire to harm self or others. Care prior to arrival: None. 17:24 Method Of Arrival: Ambulatory hb 17:24 Acuity: [place] 4 hb 17:25 Initial Sepsis Screen: Does the patient meet any 2 criteria? No. Patient's initial hb sepsis screen is negative. Does the patient have a suspected source of infection? No. Patient's initial sepsis screen is negative. Historical: - Allergies: 17:26 PENICILLINS; hb - Immunization history:: Adult Immunizations up to date. - Social history:: Smoking status: Patient/guardian denies using tobacco. - Ebola Screening: : No symptoms or risks identified at this time. Screenin:07 Abuse screen: Denies threats or abuse. Denies injuries from another. Nutritional rv screening: No deficits noted. Tuberculosis screening: No symptoms or risk factors identified. Fall Risk None identified. Assessment: 19:06 General: Appears in no apparent distress. comfortable, Behavior is calm, cooperative. rv Pain: Denies pain. Neuro: Level of Consciousness is awake, alert, obeys commands, Oriented to person, place, time, situation. Cardiovascular: Capillary refill < 3 seconds. Respiratory: Airway is patent. GI: No signs and/or symptoms were reported involving the gastrointestinal system. : No signs and/or symptoms were reported regarding the genitourinary system. EENT: No signs and/or symptoms were reported regarding the EENT system. Derm: Skin is intact. Musculoskeletal: No signs and/or symptoms reported regarding the musculoskeletal system. 19:22 Reassessment: Patient appears in no apparent distress at this time. Patient and/or rv family updated on plan of care and expected duration. Pain level reassessed. Patient is alert, oriented x 3, equal unlabored respirations, skin warm/dry/pink. Vital Signs: 17:25 BP 141 / 86; Pulse 76; Resp 18; Temp 98.2; Pulse Ox 97% on R/A; Pain 4/10; hb 19:22 BP 130 / 79; Pulse 82; Resp 18; Pulse Ox 100% on Nebulizer Mask; rv 19:30 BP 140 / 82; Pulse 78; Resp 18 S; Pulse Ox 98% on R/A; rv ED Course: 17:06 Patient arrived in ED. sb2 17:06 None, None is Private Physician. sb2 17:25 Triage completed. hb 17:26 Arm band placed on right wrist. hb 17:31 Flu Sent. hb 17:31 Strep Sent. hb 17:57 Chest Single View XRAY In Process Unspecified. EDMS 18:33 Rea Faith FNP-C is [facility]. snw 18:34 Tyler Seymour MD is Attending Physician. snw 19:08 Patient has correct armband on for positive identification. Bed in low position. Call rv light in reach. Side rails up X 1. Pulse ox on. NIBP on. 19:41 No provider procedures requiring assistance completed. Patient did not have IV access rv during this emergency room visit. Administered Medications: 19:18 Drug: Zithromax 500 mg Route: PO; rv 19:18 Drug: Albuterol - atroVENT (3:1) (2.5 mg - 0.5 mg) 3 ml Route: Nebulizer; rv Outcome: 19:36 Discharge ordered by . snw 19:41 Discharged to home ambulatory. rv 19:41 Condition: good 19:41 Discharge instructions given to patient, Instructed on discharge instructions, follow up and referral plans. medication usage, Demonstrated understanding of instructions, follow-up care, medications, Prescriptions given X 3. 19:56 Patient left the ED. rv Signatures: Dispatcher [employer] EDMS Rea Faith FNP-C FNP-[place] Kimber Cameron, RN RN Aide Combs sb2 Geronimo Chaparro RN RN rv
[2018-10-20] MEDS ORDERED: NA CHLORIDE 0.9% 0 ML ONE (19:54)
[2018-10-20] MEDS ORDERED: IBUPROFEN 400 MG TAB ONE (19:54)
[2018-10-20 20:28] VITALS: TEMP 98.2
[2018-10-20 20:37] VITALS: BP 140/82; O2SAT 98
== END 2018-10-20 19:56 | disposition home or self-care (01) ==
LOC: ER 17:05
DX: R50.9 Fever, unspecified (principal); Z88.0 Allergy status to penicillin; J20.9 Acute bronchitis, unspecified
CPT/HCPCS: 71045; 87070; 87081; 87804; 94640; 99284; J7030

== ENCOUNTER 2019-01-01 14:44 | Observation (INO) | payer BC, OTHER ==
[2019-01-01 15:21] LABS: Absolute Lymphocytes (CBC) 1.6 K/uL (0.7-4.9); Absolute Monocytes 0.3 K/uL (0.1-1.3); Absolute Neutrophil 3.6 K/uL (1.8-8.0); Basophils % 0.6 % (0-1.3); Eosinophils % 7.8 % (0-4.4); Hematocrit 40.5 % (39.6-49.0); Lymphocytes % 26.9 % (15.3-44.8); MPV 9.4 fL (7.6-11.3); Monocytes % 4.6 % (3.3-12.3)
[2019-01-01 15:27] LABS: Protime INR 1.07
[2019-01-01] MEDS ORDERED: ONDANSETRON 4 MG/2 ML VIAL ONE (15:28)
[2019-01-01] MEDS ORDERED: FAMOTIDINE 20 MG/2 ML VIAL IV ONE (15:28)
[2019-01-01] MEDS ORDERED: ASPIRIN 81 MG CHEWABLE TABLET ONE (15:28)
[2019-01-01] MEDS ORDERED: ENOXAPARIN 100 MG/ML SYR SQ ONE (15:28)
[2019-01-01] MEDS ORDERED: METOPROLOL TAR 25 MG TAB ONE (15:28)
--- NOTE | 2019-01-01 15:28 | EKG ---
Test Date: 2019-01-01 Test Time: 14:44:03 Certified Lactation Counselor: BAILEY MEASUREMENT RESULTS: Intervals: Rate: 70 ID: [id number] QRSD: 86 QT: 396 QTc: 427 [place]: P: 48 ID: [id number] QRS: 11 T: 48 INTERPRETIVE STATEMENTS: Normal sinus rhythm Minimal voltage criteria for LVH, may be normal variant Inferior infarct, age undetermined Abnormal ECG Compared to ECG 09/24/2018 11:39:35 No significant changes Electronically Signed On 01-01-19 15:27:53 CDT by Jose Daily
[2019-01-01] MEDS ORDERED: MORPHINE 2 MG/ML SYR ONE (15:29)
--- NOTE | 2019-01-01 15:29 | RAD REPORT ---
EXAM DESCRIPTION: RAD - Chest Single View - 01/01/2019 3:21 pm CLINICAL HISTORY: Chest pain, possible CVA COMPARISON: October 2018 TECHNIQUE: AP portable chest image was obtained 1520 hours . FINDINGS: No consolidation or significant failure finding. Vague increased density superimposed on t he left heart border is probably scarring. This can be further evaluated with two view imaging if glynn erable by the patient. Baseline lung markings are prominent but not clearly different from comparison . Sternotomy wires are in place. Heart and vasculature are normal. No measurable pleural effusion and no pneumothorax. No acute bony abnormality seen. No acute aortic findings suspected. IMPRESSION: Vague density superimposed on the left heart border is probably scarring or summation ar tifact. Mass or infiltrate are lesser in likelihood. If tolerable by the patient, followup two view imaging could be used to better evaluate this region. If patient cannot tolerate a two-view examination, CT chest imaging would be an alternative. No failure or volume overload suspected.
--- NOTE | 2019-01-01 15:31 | RAD REPORT ---
EXAM DESCRIPTION: CT - Head Brain Wo Cont - 01/01/2019 3:19 pm CLINICAL HISTORY: Weakness, dizziness, headache COMPARISON: CT September 2018 TECHNIQUE: Axial 5 mm thick images of the head were obtained without IV contrast. All CT scans are performed using dose optimization technique as appropriate and may include automated exposure control or mA/KV adjustment according to patient size. FINDINGS: No intracranial hemorrhage, mass, edema or shift of mid-line structures. No acute infarcti on changes seen. No abnormal extra-axial fluid collections. Atrophy and chronic ischemic changes matc h the prior study. Ventricles remain in proportion to volume loss. No globe or orbital content acute finding. Mastoid air cells are clear. Paranasal sinuses are clear of acute or significant finding. No acute bony findings. IMPRESSION: Negative non-contrast CT head examination for acute finding. Atrophy and chronic ischemic changes match the September study. Chronic ischemic changes can mask nonhemorrhagic acute infarction. MR brain followup can be obtained if there is ongoing concern for acute ischemia.
[2019-01-01 15:43] LABS: ALT/SGPT 52 U/L (12-78); AST/SGOT 46 U/L (15-37); Albumin 3.8 g/dL (3.4-5.0); Alkaline Phosphatase 71 U/L (45-117); BUN Blood Urea Nitrogen 14 mg/dL (7-18); Bicarbonate 24 mmol/L (21-32); Bilirubin Direct < 0.1 mg/dL (0-0.2); Bilirubin Total 0.3 mg/dL (0.2-1.0); Glucose Level 225 mg/dL (74-106); Magnesium 1.6 mg/dL (1.8-2.4); NT PRO-BNP 50 pg/mL (<125); Potassium 3.7 mmol/L (3.5-5.1); Protein, Total 7.5 g/dL (6.4-8.2); Sodium Level 139 mmol/L (136-145); Troponin (Emerg Dept Use Only) < 0.02 ng/mL (0.0-0.045)
--- NOTE | 2019-01-01 16:14 | EDPHYS ---
Physician Documentation [facility] Name: Jr Jane Age: 68 yrs Sex: Male : 1950 Arrival Date: 01/01/2019 Time: 14:47 Bed 6 Private MD: ED Physician Travis Puri HPI: 01/01 16:07 This 68 yrs old Male presents to ER via EMS with complaints of Chest Pain. antonio 16:07 The patient or guardian reports chest pain that is located primarily in the substernal antonio area, anterior chest wall, left. Onset: just prior to arrival. The pain radiates to Associated signs and symptoms: The patient has no apparent associated signs or symptoms. The chest pain is described as dull, a heaviness. Severity of pain: At its worst the pain was mild in the emergency department the pain has improved. The patient has not experienced similar symptoms in the past. Historical: - Allergies: 14:56 PENICILLINS; ph 14:56 Bees; ph - Home Meds: 14:56 aspirin 81 mg Oral chew 1 tab once daily [Active]; atorvastatin 80 mg Oral tab 1 tab ph once daily [Active]; cyanocobalamin (vitamin B-12) 1,000 mcg Oral tab daily [Active]; gabapentin 300 mg Oral cap twice a day [Active]; lisinopril 5 mg Oral tab 1 tab once daily [Active]; magnesium oxide 420 mg Oral tab daily [Active]; meloxicam 15 mg Oral tab 1 tab once daily [Active]; metformin 1,000 mg Oral tab 1 tab twice a day [Active]; ranitidine HCl 150 mg Oral cap 1 cap 2 times per day [Active]; Tylenol Oral [Active]; - PMHx: 14:56 Diabetes - NIDDM; Hypertension; Myocardial infarction; TIA; Depression; ph - PSHx: 14:56 quadruple bypass; ph - Immunization history:: Adult Immunizations unknown. - Social history:: Smoking status: Patient/guardian denies using tobacco. - Ebola Screening: : No symptoms or risks identified at this time. - Family history:: not pertinent. ROS: 16:07 Constitutional: Negative for fever, chills, and weight loss, Eyes: Negative for injury, antonio pain, redness, and discharge, ENT: Negative for injury, pain, and discharge, Neck: Negative for injury, pain, and swelling, Respiratory: Negative for shortness of breath, cough, wheezing, and pleuritic chest pain, Abdomen/GI: Negative for abdominal pain, nausea, vomiting, diarrhea, and constipation, Back: Negative for injury and pain, : Negative for injury, bleeding, discharge, and swelling, MS/Extremity: Negative for injury and deformity, Skin: Negative for injury, rash, and discoloration, Neuro: Negative for headache, weakness, numbness, tingling, and seizure, Psych: Negative for depression, anxiety, suicide ideation, homicidal ideation, and hallucinations, Allergy/Immunology: Negative for hives, rash, and allergies, Endocrine: Negative for neck swelling, polydipsia, polyuria, polyphagia, and marked weight changes, Hematologic/Lymphatic: Negative for swollen nodes, abnormal bleeding, and unusual bruising. 16:07 Cardiovascular: Positive for chest pain. Exam: 16:07 Constitutional: This is a well developed, well nourished patient who is awake, alert, antonio and in no acute distress. Head/Face: Normocephalic, atraumatic. Eyes: Pupils equal round and reactive to light, extra-ocular motions intact. Lids and lashes normal. Conjunctiva and sclera are non-icteric and not injected. Cornea within normal limits. Periorbital areas with no swelling, redness, or edema. ENT: Nares patent. No nasal discharge, no septal abnormalities noted. Tympanic membranes are normal and external auditory canals are clear. Oropharynx with no redness, swelling, or masses, exudates, or evidence of obstruction, uvula midline. Mucous membranes moist. Neck: Trachea midline, no thyromegaly or masses palpated, and no cervical lymphadenopathy. Supple, full range of motion without nuchal rigidity, or vertebral point tenderness. No Meningismus. Chest/axilla: Normal chest wall appearance and motion. Nontender with no deformity. No lesions are appreciated. Cardiovascular: Regular rate and rhythm with a normal S1 and S2. No gallops, murmurs, or rubs. Normal PMI, no JVD. No pulse deficits. Respiratory: Lungs have equal breath sounds bilaterally, clear to auscultation and percussion. No rales, rhonchi or wheezes noted. No increased work of breathing, no retractions or nasal flaring. Abdomen/GI: Soft, non-tender, with normal bowel sounds. No distension or tympany. No guarding or rebound. No evidence of tenderness throughout. Back: No spinal tenderness. No costovertebral tenderness. Full range of motion. Male : Normal genitalia with no discharge or lesions. Skin: Warm, dry with normal turgor. Normal color with no rashes, no lesions, and no evidence of cellulitis. MS/ Extremity: Pulses equal, no cyanosis. Neurovascular intact. Full, normal range of motion. Neuro: Awake and alert, GCS 15, oriented to person, place, time, and situation. Cranial nerves II-XII grossly intact. Motor strength 5/5 in all extremities. Sensory grossly intact. Cerebellar exam normal. Normal gait. Psych: Awake, alert, with orientation to person, place and time. Behavior, mood, and affect are within normal limits. Vital Signs: 14:53 BP 126 / 73; Pulse 68; Resp 18; Temp 98.6; Pulse Ox 96% on R/A; ph 15:19 Weight 97.52 kg (R); sv 15:45 BP 133 / 80; Pulse 69; Resp 16; Pulse Ox 97% ; sv 17:10 BP 149 / 82; Pulse 64; Resp 18; Pulse Ox 97% ; sv 18:00 BP 113 / 62; Pulse 64; Resp 15; Pulse Ox 95% ; sv 18:45 BP 145 / 88; Pulse 66; Resp 15; Pulse Ox 96% ; sv 19:30 BP 126 / 78; Pulse 61; Resp 14; Pulse Ox 96% on R/A; Pain 0/10; lp1 NIH Stroke Scale Scores: 15:35 NIHSS Score: 0 sv 17:33 NIHSS Score: 0 antonio MDM: 15:05 Patient medically screened. antonio 17:33 Data reviewed: vital signs, nurses notes, lab test result(s), EKG, radiologic studies. [facility] 01/01 14:49 Order name: Basic Metabolic Panel; Complete Time: 17:32 01/01 14:49 Order name: CBC with Diff; Complete Time: 16:03 01/01 14:49 Order name: LFT's; Complete Time: 17:32 01/01 14:49 Order name: Magnesium; Complete Time: 17:32 01/01 14:49 Order name: NT PRO-BNP; Complete Time: 17:32 01/01 14:49 Order name: PT-INR; Complete Time: 16:03 ss 01/01 14:49 Order name: Troponin (emerg Dept Use Only); Complete Time: 17:32 ss 01/01 14:49 Order name: XRAY Chest (1 view); Complete Time: 16:03 ss 01/01 15:08 Order name: Lipase; Complete Time: 19:06 [facility] 01/01 15:08 Order name: CT Head Brain wo Cont; Complete Time: 16:03 [facility] 01/01 19:04 Order name: Glucose, Ancillary Testing; Complete Time: 19:06 EDMS 01/01 14:49 Order name: EKG; Complete Time: 14:49 ss 01/01 14:49 Order name: Cardiac monitoring; Complete Time: 14:59 ss 01/01 14:49 Order name: EKG - Nurse/Tech; Complete Time: 14:59 ss 01/01 14:49 Order name: IV Saline Lock; Complete Time: 14:59 ss 01/01 17:21 Order name: Brain Wo Cont; Complete Time: 19:06 EDMS 01/01 17:51 Order name: Diet Ada 2000 A[place]o; Complete Time: 17:52 sv 01/01 14:49 Order name: Labs collected and sent; Complete Time: 14:59 ss 01/01 14:49 Order name: O2 Per Protocol; Complete Time: 14:59 ss 01/01 14:49 Order name: O2 Sat Monitoring; Complete Time: 14:59 ss Administered Medications: 15:38 Drug: Zofran 4 mg Route: IVP; Site: left antecubital; sv 16:00 Follow up: Response: No adverse reaction sv 15:40 Drug: Pepcid 20 mg Route: IVP; Site: left antecubital; sv 16:00 Follow up: Response: No adverse reaction sv 15:42 Drug: morphine 2 mg Route: IVP; Site: left antecubital; sv 16:00 Follow up: Response: No adverse reaction sv 16:07 Drug: Lovenox 1 mg/kg Route: Sub-Q; Site: right lower abdomen; sv 16:30 Follow up: Response: No adverse reaction sv 16:07 Drug: Aspirin 162 mg Route: PO; sv 16:30 Follow up: Response: No adverse reaction sv 16:08 CANCELLED (Physician Discretion): Lopressor (metoprolol TARTRATE) 50 mg PO once sv 16:08 Drug: Lopressor 25 mg Route: PO; sv 17:11 Follow up: Response: No adverse reaction sv 17:58 Drug: Magnesium Sulfate 1 grams Route: IVPB; Infused Over: 1 hrs; Site: left sv antecubital; 19:50 Follow up: IV Status: Completed infusion lp1 19:43 Not Given (Patient Refused; Denies any pain): morphine 2 mg IVP once lp1 Point of Care Testing: Blood Glucose: 14:57 Blood Glucose: 234 mg/dL; sv Ranges: Critical Glucose Levels:Adult <50 mg/dl or >400 mg/dl <40 mg/dl or >180 mg/dl Disposition: 01/01/19 16:13 Hospitalization ordered by Alyson Wang for Observation. Preliminary diagnosis are Chest pain, unspecified, Type 2 diabetes mellitus, Essential (primary) hypertension, Unspecified kidney failure. - Bed requested for Telemetry/MedSurg (observation). - Status is Observation. lp1 - Condition is Stable. - Problem is new. - Symptoms have improved. UTI on Admission? No NIH Stroke Scale - NIH Stroke Score Date: 01/01/2019 Time: 15:35 Total Score = 0 1a. Level of Consciousness (LOC) - 0(Alert) 1b. Level of Consciousness (LOC) (Year \T\ Age) - 0(Both) 1c. LOC Commands (Open \T\ Closes Eyes/Blueprint Duplicator) - 0(Both) 2. Best Gaze (Lateral Gaze Paresis) - 0(Normal) 3. Visual Field Loss - 0(No visual loss) 4. Facial Palsy - 0(Normal) 5a. Left Arm: Motor (10-second hold) - 0(No drift) 5b. Right Arm: Motor (10-second hold) - 0(No drift) 6a. Left Leg: Motor (5-second hold - always test supine) - 0(No drift) 6b. Right Leg: Motor (5-second hold - always test supine) - 0(No drift) 7. Limb Ataxia (finger/nose \T\ heel/pritchard - test with eyes open) - 0(Absent) 8. Sensory Loss (pinprick arms/legs/face) - 0(Normal) 9. Best Language: Aphasia (description/naming/reading) - 0(No aphasia) 10. Dysarthria (speech clarity - read or repeat words) - 0(Normal) 11. Extinction and Inattention (visual/tactile/auditory/spatial/personal) - 0(No abnormality) Initials: NIH Stroke Scale - NIH Stroke Score Date: 01/01/2019 Time: 17:33 Total Score = 0 1a. Level of Consciousness (LOC) - 0(Alert) 1b. Level of Consciousness (LOC) (Year \T\ Age) - 0(Both) 1c. LOC Commands (Open \T\ Closes Eyes/Blueprint Duplicator) - 0(Both) 2. Best Gaze (Lateral Gaze Paresis) - 0(Normal) 3. Visual Field Loss - 0(No visual loss) 4. Facial Palsy - 0(Normal) 5a. Left Arm: Motor (10-second hold) - 0(No drift) 5b. Right Arm: Motor (10-second hold) - 0(No drift) 6a. Left Leg: Motor (5-second hold - always test supine) - 0(No drift) 6b. Right Leg: Motor (5-second hold - always test supine) - 0(No drift) 7. Limb Ataxia (finger/nose \T\ heel/pritchard - test with eyes open) - 0(Absent) 8. Sensory Loss (pinprick arms/legs/face) - 0(Normal) 9. Best Language: Aphasia (description/naming/reading) - 0(No aphasia) 10. Dysarthria (speech clarity - read or repeat words) - 0(Normal) 11. Extinction and Inattention (visual/tactile/auditory/spatial/personal) - 0(No abnormality) Initials: [facility] Signatures: Dispatcher [employer] EDMS Samanta Garcia Stephanie, RN RN sv Anderson, Corey, MD MD cha Smirch, Shelby, RN RN ss Alise Hernandez RN RN lp1 Najma Robison RN RN ph Corrections: (The following items were deleted from the chart) 16:08 15:08 Lopressor (metoprolol TARTRATE) 50 mg PO once ordered. antonio sv 16:08 16:08 Lopressor (metoprolol TARTRATE) 50 mg PO once ordered. sv sv 16:51 15:51 Brain Wo Cont+MRI.RAD.BRZ ordered. EDMS EDMS 17:21 16:51 MRA Head Wo Cont ordered. EDMS EDMS 17:21 16:52 Brain W/Wo Cont ordered. EDMS EDMS 17:21 16:52 MRA Neck W/Wo Cont ordered. EDMS EDMS 17:34 16:13 Hospitalization Ordered by Alyson Wang MD for Observation. Preliminary antonio diagnosis is Chest pain, unspecified; Type 2 diabetes mellitus; Essential (primary) hypertension. Bed requested for Telemetry/MedSurg (observation). Status is Observation. Condition is Stable. Problem is new. Symptoms have improved. UTI on Admission? No. antonio 18:18 17:34 01/01/2019 16:13 Hospitalization Ordered by Alyson Wang MD for bd Observation. Preliminary diagnosis is Chest pain, unspecified; Type 2 diabetes mellitus; Essential (primary) hypertension; Unspecified kidney failure. Bed requested for Telemetry/MedSurg (observation). Status is Observation. Condition is Stable. Problem is new. Symptoms have improved. UTI on Admission? No. antonio 20:02 18:18 01/01/2019 16:13 Hospitalization Ordered by Alyson Wang MD for lp1 Observation. Preliminary diagnosis is Chest pain, unspecified; Type 2 diabetes mellitus; Essential (primary) hypertension; Unspecified kidney failure. Bed requested for Telemetry/MedSurg (observation). Status is Observation. Condition is Stable. Problem is new. Symptoms have improved. UTI on Admission? No. bd
--- NOTE | 2019-01-01 16:14 | ER ---
Nurse's Notes [facility] Name: Jr Jane Age: 68 yrs Sex: Male : 1950 Arrival Date: 01/01/2019 Time: 14:47 Bed 6 Private MD: Diagnosis: Chest pain, unspecified;Type 2 diabetes mellitus;Essential (primary) hypertension;Unspecified kidney failure Presentation: 01/01 14:48 Presenting complaint: EMS states: EMS called for possible stroke, upon arrival pt was ph A\T\O x 4 and ambulatory, pt c/o L sided chest pain, L sided jaw pain, numbness to L arm and headache, symptoms improved PT arriving to ED, only c/o lightheadedness, hx of multiple TIA's, last one approx 1 month ago. Transition of care: patient was not received from another setting of care. Onset of symptoms was January 01, 2019. Risk Assessment: Do you want to hurt yourself or someone else? Patient reports no desire to harm self or others. Initial Sepsis Screen: Does the patient meet any 2 criteria? No. Patient's initial sepsis screen is negative. Does the patient have a suspected source of infection? No. Patient's initial sepsis screen is negative. Care prior to arrival: IV initiated. 20 GA, in the left antecubital area, Glucose check: 251. 14:48 Method Of Arrival: EMS: [facility] ph 14:48 Acuity: [place] 3 ph Historical: - Allergies: 14:56 PENICILLINS; ph 14:56 Bees; ph - Home Meds: 14:56 aspirin 81 mg Oral chew 1 tab once daily [Active]; atorvastatin 80 mg Oral tab 1 tab ph once daily [Active]; cyanocobalamin (vitamin B-12) 1,000 mcg Oral tab daily [Active]; gabapentin 300 mg Oral cap twice a day [Active]; lisinopril 5 mg Oral tab 1 tab once daily [Active]; magnesium oxide 420 mg Oral tab daily [Active]; meloxicam 15 mg Oral tab 1 tab once daily [Active]; metformin 1,000 mg Oral tab 1 tab twice a day [Active]; ranitidine HCl 150 mg Oral cap 1 cap 2 times per day [Active]; Tylenol Oral [Active]; - PMHx: 14:56 Diabetes - NIDDM; Hypertension; Myocardial infarction; TIA; Depression; ph - PSHx: 14:56 quadruple bypass; ph - Immunization history:: Adult Immunizations unknown. - Social history:: Smoking status: Patient/guardian denies using tobacco. - Ebola Screening: : No symptoms or risks identified at this time. - Family history:: not pertinent. Screenin:58 Abuse screen: Denies threats or abuse. Denies injuries from another. Nutritional sv screening: No deficits noted. Tuberculosis screening: No symptoms or risk factors identified. Fall Risk None identified. 15:35 Patient has been NPO before screening. The patient is alert, able to follow commands. sv The patient does not exhibit slurred or garbled speech The patient is not exhibiting difficulty speaking. The patient does not exhibit difficulty understanding words. The patient is able to swallow own secretions with no drooling or need for suction. Patient tolerated one teaspoon of water. No drooling, immediate coughing, gurgling, or clearing of the throat was noted. The patient tolerated 90mL of water. No drooling, immediate coughing, gurgling, or clearing of the throat was noted. The patient passed the bedside swallow screening. Oral medications may be given as ordered. Contact Physician for further diet orders. Provider notified of bedside swallow screening results: Travis Puri MD. Assessment: 15:00 General: Appears in no apparent distress. uncomfortable, well developed, Behavior is sv calm, cooperative, appropriate for age, Reports about 45 mins prior to EMS arrival he was having left sided headache, dizziness, lightheaded, left arm numbness, left chest pain and left shoulder pain. Pain: Complains of pain in left frontal area, left side of the back of head, left side of forehead, left temporal area and left occipital area Pain does not radiate. Pain currently is 4 out of 10 on a pain scale. Pain began gradually, Is continuous. 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 Full function Speech is normal, Facial symmetry appears normal, Reports headache in left weakness in left arm Denies numbness in right arm, left arm, right leg and left leg. Cardiovascular: Patient's skin is warm and dry. Cardiovascular: Denies chest pain. Respiratory: Airway is patent Respiratory effort is even, unlabored, Respiratory pattern is regular, symmetrical. Derm: Skin is pink, warm \T\ dry. 16:08 Reassessment: Patient appears in no apparent distress at this time. No changes from sv previously documented assessment. Patient and/or family updated on plan of care and expected duration. Pain level reassessed. Patient is alert, oriented x 3, equal unlabored respirations, skin warm/dry/pink. 17:08 Reassessment: Patient appears in no apparent distress at this time. No changes from sv previously documented assessment. Patient and/or family updated on plan of care and expected duration. Pain level reassessed. Patient is alert, oriented x 3, equal unlabored respirations, skin warm/dry/pink. Dr Wang at the bedside. 17:28 Reassessment: Waiting for admission orders from Dr Wang. sv 18:00 Reassessment: Patient appears in no apparent distress at this time. No changes from sv previously documented assessment. Patient and/or family updated on plan of care and expected duration. Pain level reassessed. Patient is alert, oriented x 3, equal unlabored respirations, skin warm/dry/pink. 19:30 Reassessment: Patient appears in no apparent distress at this time. Patient is alert, lp1 oriented x 3, equal unlabored respirations, skin warm/dry/pink. Patient denies pain at this time. Patient states feeling better. Patient states symptoms have improved. 19:30 Cardiovascular: Rhythm is sinus rhythm. lp1 Vital Signs: 14:53 BP 126 / 73; Pulse 68; Resp 18; Temp 98.6; Pulse Ox 96% on R/A; ph 15:19 Weight 97.52 kg (R); sv 15:45 BP 133 / 80; Pulse 69; Resp 16; Pulse Ox 97% ; sv 17:10 BP 149 / 82; Pulse 64; Resp 18; Pulse Ox 97% ; sv 18:00 BP 113 / 62; Pulse 64; Resp 15; Pulse Ox 95% ; sv 18:45 BP 145 / 88; Pulse 66; Resp 15; Pulse Ox 96% ; sv 19:30 BP 126 / 78; Pulse 61; Resp 14; Pulse Ox 96% on R/A; Pain 0/10; lp1 NIH Stroke Scale Scores: 15:35 NIHSS Score: 0 sv 17:33 NIHSS Score: 0 antoino ED Course: 14:47 Patient arrived in ED. ph 14:53 Triage completed. ph 14:57 Kate Espinoza, RN is Primary Nurse. sv 14:58 Initial lab(s) drawn, by ED staff, sent to lab. Maintain EMS IV. Dressing intact. Site sv clean \T\ dry. Gauge \T\ site: 20G L AC. 14:58 Arm band placed on. sv 14:58 Patient has correct armband on for positive identification. Placed in gown. Bed in low sv position. Call light in reach. Adult w/ patient. bus monitor on. Pulse ox on. NIBP on. 15:00 Report received from Najma LOCKHART. sv 15:05 Travis Puri MD is Attending Physician. antonio 15:[address] sj 15:19 CT Head Brain wo Cont In Process Unspecified. EDMS 15:20 Patient maintains SpO2 saturation greater than 95% on room air. sv 15:21 X-ray completed. Patient tolerated procedure well. Patient moved to radiology via sw stretcher. Patient moved back from radiology. 15:22 XRAY Chest (1 view) In Process Unspecified. EDMS 15:43 Awaiting lab results, Awaiting radiology results. sv 16:09 Awaiting: MRI. sv 16:12 Alyson Wang MD is Hospitalizing Provider. antonio 16:23 Awaiting bed assignment. sv 19:09 Report given to Alise LOCKHART. sv 19:17 Primary Nurse role handed off by Kate Espinoza, CHANTELLE sv 19:44 No provider procedures requiring assistance completed. Patient admitted, IV remains in lp1 place. 19:57 Alise Hernandez RN is Primary Nurse. lp1 Administered Medications: 15:38 Drug: Zofran 4 mg Route: IVP; Site: left antecubital; sv 16:00 Follow up: Response: No adverse reaction sv 15:40 Drug: Pepcid 20 mg Route: IVP; Site: left antecubital; sv 16:00 Follow up: Response: No adverse reaction sv 15:42 Drug: morphine 2 mg Route: IVP; Site: left antecubital; sv 16:00 Follow up: Response: No adverse reaction sv 16:07 Drug: Lovenox 1 mg/kg Route: Sub-Q; Site: right lower abdomen; sv 16:30 Follow up: Response: No adverse reaction sv 16:07 Drug: Aspirin 162 mg Route: PO; sv 16:30 Follow up: Response: No adverse reaction sv 16:08 CANCELLED (Physician Discretion): Lopressor (metoprolol TARTRATE) 50 mg PO once sv 16:08 Drug: Lopressor 25 mg Route: PO; sv 17:11 Follow up: Response: No adverse reaction sv 17:58 Drug: Magnesium Sulfate 1 grams Route: IVPB; Infused Over: 1 hrs; Site: left sv antecubital; 19:50 Follow up: IV Status: Completed infusion lp1 19:43 Not Given (Patient Refused; Denies any pain): morphine 2 mg IVP once lp1 Point of Care Testing: Blood Glucose: 14:57 Blood Glucose: 234 mg/dL; sv Ranges: Outcome: 16:13 Decision to Hospitalize by Provider. antonio 19:44 Admitted to Tele accompanied by funmi, via wheelchair, room 404, with chart, Report lp1 called to Estefanía Mcneil RN 19:44 Condition: stable 19:44 Instructed on the need for admit. 19:55 Patient left the ED. lp1 NIH Stroke Scale - NIH Stroke Score Date: 01/01/2019 Time: 15:35 Total Score = 0 1a. Level of Consciousness (LOC) - 0(Alert) 1b. Level of Consciousness (LOC) (Year \T\ Age) - 0(Both) 1c. LOC Commands (Open \T\ Closes Eyes/Chronometer Repairer) - 0(Both) 2. Best Gaze (Lateral Gaze Paresis) - 0(Normal) 3. Visual Field Loss - 0(No visual loss) 4. Facial Palsy - 0(Normal) 5a. Left Arm: Motor (10-second hold) - 0(No drift) 5b. Right Arm: Motor (10-second hold) - 0(No drift) 6a. Left Leg: Motor (5-second hold - always test supine) - 0(No drift) 6b. Right Leg: Motor (5-second hold - always test supine) - 0(No drift) 7. Limb Ataxia (finger/nose \T\ heel/pritchard - test with eyes open) - 0(Absent) 8. Sensory Loss (pinprick arms/legs/face) - 0(Normal) 9. Best Language: Aphasia (description/naming/reading) - 0(No aphasia) 10. Dysarthria (speech clarity - read or repeat words) - 0(Normal) 11. Extinction and Inattention (visual/tactile/auditory/spatial/personal) - 0(No abnormality) Initials: sv NIH Stroke Scale - NIH Stroke Score Date: 01/01/2019 Time: 17:33 Total Score = 0 1a. Level of Consciousness (LOC) - 0(Alert) 1b. Level of Consciousness (LOC) (Year \T\ Age) - 0(Both) 1c. LOC Commands (Open \T\ Closes Eyes/Chronometer Repairer) - 0(Both) 2. Best Gaze (Lateral Gaze Paresis) - 0(Normal) 3. Visual Field Loss - 0(No visual loss) 4. Facial Palsy - 0(Normal) 5a. Left Arm: Motor (10-second hold) - 0(No drift) 5b. Right Arm: Motor (10-second hold) - 0(No drift) 6a. Left Leg: Motor (5-second hold - always test supine) - 0(No drift) 6b. Right Leg: Motor (5-second hold - always test supine) - 0(No drift) 7. Limb Ataxia (finger/nose \T\ heel/pritchard - test with eyes open) - 0(Absent) 8. Sensory Loss (pinprick arms/legs/face) - 0(Normal) 9. Best Language: Aphasia (description/naming/reading) - 0(No aphasia) 10. Dysarthria (speech clarity - read or repeat words) - 0(Normal) 11. Extinction and Inattention (visual/tactile/auditory/spatial/personal) - 0(No abnormality) Initials: antonio Signatures: Dispatcher [employer] EDKate Castano RN Travis Munoz MD MD cha Jones, Susan sj Pena, Laura RN RN lp1 Najma Robison RN RN Shona Mccloud Corrections: (The following items were deleted from the chart) 15:43 15:00 General: Appears in no apparent distress. uncomfortable, well developed, sv Behavior is calm, cooperative, appropriate for age, sv 15:43 15:00 Neuro: Level of Consciousness is awake, alert, obeys commands, Oriented sv to person, place, time, situation, Moves all extremities. Full function Speech is normal, Facial symmetry appears normal, Reports headache in left weakness in left arm sv 17:11 17:10 BP 143 / 69; Pulse 48bpm; Resp 16bpm; Pulse Ox 96%; sv sv 19:43 19:30 BP 126 / 78; Pulse 61bpm; Resp 14bpm; Pulse Ox 96% RA; lp1 lp1 20:04 20:02 Patient left the ED. lp1 lp1
--- NOTE | 2019-01-01 17:47 | P.HP ---
Certification for Inpatient Patient admitted to: Observation With expected LOS: <2 Midnights Practitioner: I am a practitioner with admitting privileges, knowledge of patient current condition, hospital course, and medical plan of care. Services: Services provided to patient in accordance with Admission requirements found in Title 42 Section 412.3 of the Code of Federal Regulations Patient History Date of Service: 01/01/19 Primary Care Provider: [facility] Reason for admission: Chest pain History of Present Illness: This is a 68 yr old male with hx of quadruple bypass, 7 coronary stent placements prior to the bypass, HTN, HLD, NIDDM, CAD admitted for chest pain. Per patient, chest pain started the afternoon of admission, while he was sitting and resting. It was substernal dull like pain, radiating up to the neck and to his left shoulder/upper arm. It was associated with numbness/tingling on left arm, dizziness, and weakness. At baseline, pt states that he will use a walker at home if he needs it otherwise he does well. He also stated that he had noted a right-sided facial droop, his also noted. He stated that this resolved prior to coming to the ER. His chest pain scared him and his granddaughter called the EMS and was brought to the ED via EMS. In the ED, his trop was negative x 1, EKG with NSR and evidence of LVH along with old infarct, and per ED, even though patient is a [facility], he did not want to go to the [facility]. With his vital signs were stable with blood pressure 149/82, heart rate of 66 and 96% oxygen saturation on room air. His labs were remarkable for creatinine of 1.38. His head CT was negative for any acute abnormalities his chest x-ray was negative for any acute abnormalities. MRI of the brain was pending. At the time of my exam, patient was AAOx4, in no acute distress, was comfortably lying in bed and his only complaint was a headache. His chest pain had completely resolved. There is no facial droop noted. He was hemodynamically stable. 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 He did not follow up with his hay rake operator as he was instructed to do after previous discharge. He states that he has an appointment with his hay rake operator in January. Allergies Penicillins Adverse Reaction (Verified 12/21/14 21:58) chest feels like it will explode PCN Allergy (Uncoded 12/24/14 18:45) Unknown Home medications list reviewed: Yes Home Medications: Acetaminophen 500 mg PO DAILY PRN 09/25/18 Amitriptyline [Elavil*] 1 tab PO BEDTIME 09/25/18 Aspirin 81 mg PO DAILY 09/25/18 Atorvastatin Calcium [Lipitor] 40 mg PO BEDTIME 09/25/18 Cyanocobalamin (Vitamin B-12) [Vitamin B-12] 1,000 mcg PO DAILY 09/25/18 Lisinopril 5 mg PO DAILY 09/25/18 Magnesium Oxide 420 mg PO BEDTIME 09/25/18 Meloxicam 15 mg PO DAILY 09/25/18 Metformin HCl 1,000 mg PO BID 09/25/18 Ranitidine HCl [Zantac] 150 mg PO BID 09/25/18 Metoprolol Tartrate [Lopressor*] 12.5 mg PO BID #30 tab 09/26/18 - Past Medical/Surgical History Diabetic: Yes -: HIGH CHOLESTEROL -: HTN -: NIDDM -: CHEST WALL INJURY -: CABG - Social History Alcohol use: No CD- Drugs: No Caffeine use: No Review of Systems 10-point ROS is otherwise unremarkable Physical Examination - Physical Exam General: Alert, In no apparent distress, Oriented x3 HEENT: Atraumatic, PERRLA, Mucous membr. moist/pink, EOMI, Sclerae nonicteric Neck: Supple, 2+ carotid pulse no bruit, No LAD, Without JVD or thyroid abnormality Respiratory: Clear to auscultation bilaterally, Normal air movement Cardiovascular: Regular rate/rhythm, Normal S1 S2 Gastrointestinal: Normal bowel sounds, No tenderness Musculoskeletal: No tenderness Integumentary: No rashes Neurological: Normal gait, Normal speech, Normal strength at 5/5 x4 extr, Normal tone, Normal affect - Studies Laboratory Data (last 24 hrs) 01/01/19 14:56: PT 12.6 H, INR 1.07 01/01/19 14:56: WBC 6.0, Hgb 14.1, Hct 40.5, Plt Count 178 01/01/19 14:56: Sodium 139, Potassium 3.7, BUN 14, Creatinine 1.38 H, Glucose 225 H, Magnesium 1.6 L D, Total Bilirubin 0.3, AST 46 H, ALT 52, Alkaline Phosphatase 71 Assessment and Plan - Plan Chest pain, R/O ACS High risk patient: Prior CABG, stent placement, HTN, HLD, obesity, former smoker (quit in 90's) Chest guidelines started with aspirin, beta-bella, PORTILLO-inhibitor, statin. Trend troponin Cardiology consult Morphine prn pain, Nitro prn cp, O2 per protocol ECHO of 09/25/2018: Ejection fraction 60-69%, dilated 09/25/2018: Negative stress test HTN, essential Stable, will continue home meds as pt will get the list tomorrow NIDDM, type 2 Accu-checks and mild sliding scale insulin protocol HLD Continue home statin CAD Hx of cardiac cath Hx of coronary stenting Morbid obesity, BMI of 33.6 History of CVA Right-sided facial droop, now resolved CT head negative for any acute abnormalities. MRI ordered, pending. Nonfocal neurological exam at this time. Will continue to monitor DVT prophylaxis: ASA and plavix GI prophylaxis: None Diet: Heart healthy, NPO after midnight Dispo: Pending cardiology evaluation. Discharge Plan: Home Plan to discharge in: 24 Hours - Advance Directives Does patient have a Living Will: No Does patient have a Durable POA for Healthcare: Yes Time Spent Managing Pts Care (In Minutes): 55
[2019-01-01] MEDS ORDERED: MAGNESIUM SULFATE 1 gm IVPB 1 GM/100 ML BAG IV ONE (17:53)
--- NOTE | 2019-01-01 18:41 | RAD REPORT ---
EXAM DESCRIPTION: MRI - Brain Wo Cont - 01/01/2019 6:34 pm CLINICAL HISTORY: Left extremity weakness, suspected CVA COMPARISON: CT head same date TECHNIQUE: Sagittal T1-weighted images were obtained along with axial PD, heavily T2-weighted and T2 -FLAIR images. Axial DWI and ADC mapping sequences were also obtained along with coronal heavily T2-w eighted images. FINDINGS: No intracranial hemorrhage, mass or acute infarction. There is no edema or shift of midlin e structures. No extra-axial fluid collections. Contreras-matter/white matter junction is preserved. Signa l voids are seen as a normal finding in the major intracranial vessels. Scattered chronic ischemic ch anges are seen in the cerebral white matter. Mild to moderate atrophy changes are present. Choroid pl exus cysts are present as an incidental finding. No globe or orbital content abnormality. Mastoid air cells and paranasal sinuses are clear. IMPRESSION: No infarction or acute intracranial finding. Mild to moderate atrophy and mild chronic ischemic change are present.
[2019-01-01] MEDS ORDERED: NITROGLYCERIN 0.4 MG/TAB SL PRN (20:11)
[2019-01-01] MEDS ORDERED: ONDANSETRON 4 MG/2 ML VIAL IV PRN (20:11)
[2019-01-01] MEDS ORDERED: MORPHINE 2 MG/ML SYR IV PRN (20:11)
[2019-01-01 20:12] VITALS: BMI 32.4
[2019-01-01] MEDS: INSULIN -REGULAR HUMAN 50 UNIT/0.5 ML ML SQ SCH (21:00)
[2019-01-01] MEDS ORDERED: ATORVASTATIN 80 MG TAB PO SCH (21:00)
[2019-01-01] MEDS: METOPROLOL TAR 25 MG TAB PO SCH (21:28)
[2019-01-02] MEDS: METOPROLOL TAR 25 MG TAB PO SCH (05:29)
[2019-01-02 06:29] LABS: Absolute Lymphocytes (CBC) 2.1 K/uL (0.7-4.9); Absolute Monocytes 0.4 K/uL (0.1-1.3); Absolute Neutrophil 3.3 K/uL (1.8-8.0); Basophils % 0.7 % (0-1.3); Hematocrit 40.9 % (39.6-49.0); Lymphocytes % 32.9 % (15.3-44.8); MPV 9.1 fL (7.6-11.3); Monocytes % 5.6 % (3.3-12.3); RBC Red Blood Cell Count 5.01 M/uL (4.33-5.43)
[2019-01-02 06:54] LABS: Magnesium 1.9 mg/dL (1.8-2.4); Phosphorus 3.4 mg/dL (2.5-4.9)
[2019-01-02 06:59] LABS: ALT/SGPT 53 U/L (12-78); AST/SGOT 42 U/L (15-37); Albumin 3.6 g/dL (3.4-5.0); Alkaline Phosphatase 60 U/L (45-117); BUN Blood Urea Nitrogen 15 mg/dL (7-18); Bicarbonate 30 mmol/L (21-32); Bilirubin Total 0.4 mg/dL (0.2-1.0); Glucose Level 156 mg/dL (74-106); HDL Cholesterol 29 mg/dL (40-60); LDL Cholesterol, Calculated ND (<130); Potassium 4.1 mmol/L (3.5-5.1); Protein, Total 7.4 g/dL (6.4-8.2); Sodium Level 139 mmol/L (136-145)
[2019-01-02 07:11] LABS: LDL, Direct 55 mg/dL (100-129)
[2019-01-02] MEDS: INSULIN -REGULAR HUMAN 50 UNIT/0.5 ML ML SQ SCH (07:30)
[2019-01-02 07:50] VITALS: O2SAT 97
[2019-01-02] MEDS ORDERED: CLOPIDOGREL 75 MG TABLET PO SCH (09:00)
[2019-01-02] MEDS ORDERED: LISINOPRIL 5 MG TAB PO SCH (09:00)
[2019-01-02] MEDS ORDERED: PNEUMOCOCCAL VACCINE 0.5 ML IMVAC ONE (09:00)
[2019-01-02] MEDS ORDERED: ASPIRIN EC 81 MG TAB PO SCH (09:00)
--- NOTE | 2019-01-02 09:34 | P.SSS ---
Patient History Date of Service: 01/02/19 Primary Care Provider: [facility] Reason for admission: Chest pain History of Present Illness: This is a 68 yr old male with hx of quadruple bypass, 7 coronary stent placements prior to the bypass, HTN, HLD, NIDDM, CAD admitted for chest pain. Per patient, chest pain started the afternoon of admission, while he was sitting and resting. It was substernal dull like pain, radiating up to the neck and to his left shoulder/upper arm. It was associated with numbness/tingling on left arm, dizziness, and weakness. At baseline, pt states that he will use a walker at home if he needs it otherwise he does well. He also stated that he had noted a right-sided facial droop, his also noted. He stated that this resolved prior to coming to the ER. His chest pain scared him and his granddaughter called the EMS and was brought to the ED via EMS. In the ED, his trop was negative x 1, EKG with NSR and evidence of LVH along with old infarct, and per ED, even though patient is a [facility], he did not want to go to the [facility]. With his vital signs were stable with blood pressure 149/82, heart rate of 66 and 96% oxygen saturation on room air. His labs were remarkable for creatinine of 1.38. His head CT was negative for any acute abnormalities his chest x-ray was negative for any acute abnormalities. MRI of the brain was pending. At the time of my exam, patient was AAOx4, in no acute distress, was comfortably lying in bed and his only complaint was a headache. His chest pain had completely resolved. There is no facial droop noted. He was hemodynamically stable. Of note, patient's cooker operator is at the [facility] but patient has not had any cardiac workup or seen his cooker operator in 2 years. He did not follow up with his cooker operator as he was instructed to do after previous discharge. He states that he has an appointment with his cooker operator in January. Allergies Penicillins Adverse Reaction (Verified 12/21/14 21:58) chest feels like it will explode PCN Allergy (Uncoded 12/24/14 18:45) Unknown Home medications list reviewed: Yes Home Medications: Metoprolol Succinate 50 mg PO DAILY #30 tab.er.24h 01/02/19 Nitroglycerin [Nitrostat*] 0.4 mg SL UD PRN #15 tab 01/02/19 - Past Medical/Surgical History Has patient received pneumonia vaccine in the past: No Diabetic: Yes -: HIGH CHOLESTEROL -: HTN -: NIDDM -: CHEST WALL INJURY -: CABG - Family History Mother -: Heart disease Father Notes: Brain Tumor - Social History Smoking Status: Former smoker Alcohol use: No CD- Drugs: No Caffeine use: Yes Place of Residence: Home Review of Systems 10-point ROS is otherwise unremarkable Physical Examination - Vital Signs Temperature: 97.2 F Blood Pressure: 135/87 Pulse: 64 Respirations: 20 Pulse Ox (%): 97 - Physical Exam General: Alert, In no apparent distress, Oriented x3 HEENT: Atraumatic, PERRLA, Mucous membr. moist/pink, EOMI, Sclerae nonicteric Neck: Supple, 2+ carotid pulse no bruit, No LAD, Without JVD or thyroid abnormality Respiratory: Clear to auscultation bilaterally, Normal air movement Cardiovascular: Regular rate/rhythm, Normal S1 S2 Gastrointestinal: Normal bowel sounds, No tenderness Musculoskeletal: No tenderness Integumentary: No rashes Neurological: Normal gait, Normal speech, Normal strength at 5/5 x4 extr, Normal tone, Normal affect Lymphatics: No axilla or inguinal lymphadenopathy - Studies Laboratory Data (last 24 hrs) 01/01/19 14:56: Lipase 177 01/01/19 14:56: PT 12.6 H, INR 1.07 01/01/19 14:56: WBC 6.0, Hgb 14.1, Hct 40.5, Plt Count 178 01/01/19 14:56: Sodium 139, Potassium 3.7, BUN 14, Creatinine 1.38 H, Glucose 225 H, Magnesium 1.6 L D, Total Bilirubin 0.3, AST 46 H, ALT 52, Alkaline Phosphatase 71 - Diagnosis (Problem(s)) (1) Chest pain Onset Date: 12/22/14 Current Visit: No Status: Acute Qualifiers: Chest pain type: unspecified Qualified Code(s): R07.9 - Chest pain, unspecified (2) Diabetes mellitus Onset Date: 09/25/18 Current Visit: No Status: Acute Qualifiers: Diabetes mellitus type: type 2 Diabetes mellitus retirement insulin use: without retirement use Diabetes mellitus complication status: with hyperglycemia Qualified Code(s): E11.65 - Type 2 diabetes mellitus with hyperglycemia (3) Hypertension Onset Date: 09/25/18 Current Visit: No Status: Acute Qualifiers: Hypertension type: essential hypertension Qualified Code(s): I10 - Essential (primary) hypertension (4) CAD (coronary artery disease) Onset Date: 09/25/18 Current Visit: No Status: Chronic Qualifiers: Coronary Disease-Associated Artery/Lesion type: eagle artery [place] vs. transplanted heart: eagle heart Associated angina: with stable angina Qualified Code(s): I25.118 - Atherosclerotic heart disease of eagle coronary artery with other forms of angina pectoris (5) History of coronary artery stent placement Current Visit: No Status: Chronic (6) Hx of four vessel coronary artery bypass graft Current Visit: No Status: Chronic (7) Obesity (BMI 30-39.9) Onset Date: 09/25/18 Current Visit: No Status: Chronic Treatment Summary: Patient was admitted for chest pain as he is a high risk patient. His risk factors included Prior CABG, stent placement, HTN, HLD, obesity, former smoker ( quit in ). Cardiology was consulted. He was started/continued on chest pain guidelines. His troponins were negative x 2. His vital signs remained stable throughout the stay. His ECHO in 09/25/2018 was with Ejection fraction 60-69%, dilated and he has a negative stress test on 09/25/2018. He had some complaints of right sided drooping of his face, which had resolved prior to him coming to the ER. His MRI of the brain was negative for acute CVA. His neuro exam was non focal and he had no further episodes throughout the stay. He was then cleared by cardiology for discharge. He otherwise remained stable throughout the stay. Prior to discharge, his symptoms had improved. He was AAOx3, in no acute distress and he was hemodynamically stable. He was educated on the importance of followup with his cooker operator as he had not followed up after his prior admission. His treatment plan/diagnosis was discussed with him. All questions were answered and he verbalized understanding. He was discharged home in a stable manner. - Disposition Discharge Date: 01/02/19 Disposition: ROUTINE DISCHARGE Condition: GOOD Consultations: Cardiology Patient Discharge Instructions: Please follow up with your primary care physician in 2-3 days. Please make sure you keep your follow up appointment with your cooker operator, as you have it scheduled. It is very important that you follow up with your cooker operator. New medications: Metoprolol Extended release 50 mg daily, Nitroglycerin sublingual tablet as needed for chest pain. Please return to the Emergency room with worsening symptoms. Diet: AHA Activity: Ad edna Time Spent Managing Pts Care (In Minutes): 55
[2019-01-02 11:38] VITALS: BP 123/72; TEMP 98.8
--- NOTE | 2019-01-02 16:26 | CON ---
Date of Consultation: 01/02/2019 Reason For Consultation: Chest pain. History Of Present Illness: Mr. Jane is a 68-year-old [place] male. He has had a history of coronary artery bypass surgery approximately 4 years ago. Prior to that, he had 7 stents. He get s most of his care at the [facility]. He also has a history of hypertension, diabetes, and depressi on. The last time he was in the hospital was 3 months ago for similar symptoms. Had a normal echoca rdiogram and had a normal Lexiscan at that time. Today, he comes in with symptoms of headache, stuff iness after which he developed some chest pain radiating to his left arm that lasted about 10 minutes . No nausea, vomiting, diaphoresis, PND, orthopnea, pedal edema, palpitation, or syncope. He has an EKG showing left ventricular hypertrophy. He had a chest x-ray, which was negative. CT of the head was negative. MRI was negative. Review of Systems: Negative. Social History: Negative. Family History: Negative. Medications: At home include Lipitor, metformin, Neurontin, Zantac, lisinopril, and meloxicam. Allergies: HE IS ALLERGIC TO PENICILLIN. Physical Examination: Vital Signs: Stable, afebrile. HEENT: Negative. Neck: Supple without any bruit, lymphadenopathy, JVD, or thyromegaly. Chest: Clear to auscultation and percussion. Cardiac: Revealed a regular rhythm and rate. No murmurs, gallops. Abdomen: Benign. Extremities: Revealed no clubbing, cyanosis, or edema. Diagnostic Data: Showed a creatinine of 1.13. Lipid profile showed a triglyceride of 863. Rest of the workup was as mentioned earlier. Impression And Plan: Atypical chest pain in a patient who just recently had a normal echo and a norm al Lexiscan. He has a history of coronary artery disease, status post multiple stents followed by [facility]. We would not repeat cardiac workup at this point. He had the EKG, troponin, CPKs, MBs, and BNPs , are all negative. His chest x-ray is negative. I think his pain is atypical. Nevertheless, I thi nk with his history, I recommended we add nitroglycerin as needed as well as a metoprolol 50 mg daily . He is to continue his statin. He is to continue his metformin and lisinopril as well for his diab etes. He has an appointment with his automatic pattern edger on January 16, 2019 at the [facility] and he needs to keep that. I think we need to consider adding fenofibrate to his regimen concerning his triglyceride level. I think if symptoms persist down the road maybe a catheterization is the best way to go. I will leave that up to his automatic pattern edger at the [facility]. His other problems including hypertension , dyslipidemia, neuropathy seem to be stable at this point. From my standpoint, he can go home today whenever it is okay with Dr. Wang. MARK ANTHONY/PATRICK Voice ID: [id number] Report ID: [id number]
== END 2019-01-02 11:37 | disposition home or self-care (01) ==
LOC: ER 14:44 → ERHOLD 17:42 → 4TH 19:47
PROVIDERS: ADMIT Family Medicine; ATTEND Family Medicine
DX: R07.9 Chest pain, unspecified (principal); I10 Essential (primary) hypertension; E11.9 Type 2 diabetes mellitus without complications; E78.5 Hyperlipidemia, unspecified; I25.10 Atherosclerotic heart disease of native coronary artery without angina pectoris; E66.9 Obesity, unspecified; Z68.32 Body mass index [BMI] 32.0-32.9, adult; Z79.82 Long term (current) use of aspirin; Z95.1 Presence of aortocoronary bypass graft; Z88.0 Allergy status to penicillin; Z95.5 Presence of coronary angioplasty implant and graft; Z87.891 Personal history of nicotine dependence; Z86.73 Personal history of transient ischemic attack (TIA), and cerebral infarction without residual deficits
CPT/HCPCS: 36415; 70450; 70551; 71045; 80048; 80053; 80061; 80076; 82962; 83690; 83735; 83880; 84100; 84443; 84484; 85025; 85610; 93005; 94760; 96365; 96366; 96372; 96375; 99285; G0378; J1650; J2270; J2405; J3475

== ENCOUNTER 2019-09-26 11:32 | Emergency (ER) | payer BC, OTHER ==
--- NOTE | 2019-09-26 13:12 | RAD REPORT ---
EXAM DESCRIPTION: Neela Batres And Paul (2 Views)09/26/2019 1:07 pm CLINICAL HISTORY: Cough COMPARISON: December 2018 FINDINGS: The lungs appear clear of acute infiltrate. The heart is borderline enlarged Postsurgical changes involve the chest. IMPRESSION: No acute abnormalities displayed
[2019-09-26] MEDS ORDERED: HYDROCODONE/CHLORPHEN 5 ML/OSYR ONE (13:42)
--- NOTE | 2019-09-26 14:05 | ER ---
Nurse's Notes [facility] Name: Jr Jane Age: 69 yrs Sex: Male : 1950 Arrival Date: 09/26/2019 Time: 11:35 Bed 20 Private MD: Diagnosis: Influenza due to identified novel influenza A virus Presentation: 09/26 11:39 Presenting complaint: Patient states: "Im having a hard time breathing, and I'm aj1 coughing so much that it hurts so bad." Reports that he has been feeling this way for the past 2 days. Reports congestion and subjective fever. Transition of care: patient was not received from another setting of care. Onset of symptoms was 2019. Risk Assessment: Do you want to hurt yourself or someone else? Patient reports no desire to harm self or others. Initial Sepsis Screen: Does the patient meet any 2 criteria? No. Patient's initial sepsis screen is negative. Does the patient have a suspected source of infection? Yes: Productive cough/pneumonia. Care prior to arrival: None. 11:39 Method Of Arrival: Ambulatory aj1 11:39 Acuity: [place] 3 aj1 Triage Assessment: 11:43 General: Appears in no apparent distress. comfortable, Behavior is calm, cooperative, aj1 appropriate for age. Pain: Complains of pain in face and chest. Neuro: Level of Consciousness is awake, alert, obeys commands. Cardiovascular: Patient's skin is warm and dry. Respiratory: Reports shortness of breath on exertion cough that is hacking, persistent Airway is patent Respiratory effort is even, unlabored, Respiratory pattern is regular, symmetrical, Onset: The symptoms/episode began/occurred 2 days ago, the patient has mild shortness of breath. Historical: - Allergies: 11:43 Bees; aj1 11:43 PENICILLINS; aj1 11:43 Demerol; aj1 - Home Meds: 11:43 aspirin 81 mg Oral chew 1 tab once daily [Active]; atorvastatin 80 mg Oral tab 1 tab aj1 once daily [Active]; cyanocobalamin (vitamin B-12) 1,000 mcg Oral tab daily [Active]; gabapentin 300 mg Oral cap twice a day [Active]; lisinopril 5 mg Oral tab 1 tab once daily [Active]; magnesium oxide 420 mg Oral tab daily [Active]; meloxicam 15 mg Oral tab 1 tab once daily [Active]; metformin 1,000 mg Oral tab 1 tab twice a day [Active]; Tylenol Oral [Active]; - PMHx: 11:43 Depression; Diabetes - NIDDM; Hypertension; Myocardial infarction; TIA; aj1 - Immunization history:: Flu vaccine is up to date. - Social history:: Smoking status: Patient/guardian denies using tobacco. - Ebola Screening: : Patient denies travel to an Ebola-affected area in the 21 days before illness onset. Screenin:30 Abuse screen: Denies threats or abuse. Denies injuries from another. Nutritional sg screening: No deficits noted. Tuberculosis screening: No symptoms or risk factors identified. Fall Risk None identified. Assessment: 13:30 General: Appears in no apparent distress. Behavior is calm, cooperative. Pain: Denies sg pain. Neuro: Level of Consciousness is awake, alert, obeys commands, Oriented to person, place, time, situation. Cardiovascular: Capillary refill < 3 seconds Patient's skin is warm and dry. Rhythm is regular. Respiratory: Reports cough that is non-productive, Airway is patent Respiratory effort is even, unlabored, Respiratory pattern is regular, symmetrical, Breath sounds are clear bilaterally. GI: No signs and/or symptoms were reported involving the gastrointestinal system. : No signs and/or symptoms were reported regarding the genitourinary system. EENT: No signs and/or symptoms were reported regarding the EENT system. Derm: Skin is pink, warm \\T\\ dry. Musculoskeletal: Reports body aches. 14:15 Reassessment: Patient appears in no apparent distress at this time. Patient and/or sg family updated on plan of care and expected duration. Pain level reassessed. Patient is alert, oriented x 3, equal unlabored respirations, skin warm/dry/pink. Vital Signs: 11:43 BP 136 / 76; Pulse 81; Resp 18; Temp 99.0; Pulse Ox 96% on R/A; Weight 103.87 kg (R); aj1 Height 5 ft. 8 in. (172.72 cm) (R); Pain 5/10; 11:43 Body Mass Index 34.82 (103.87 kg, 172.72 cm) aj1 ED Course: 11:35 Patient arrived in ED. rg4 11:42 Triage completed. aj1 11:43 Arm band placed on Patient placed in waiting room, Patient notified of wait time. aj1 12:13 [facility] snw 12:13 Travis Puri MD is Attending Physician. snw 13:07 Chest Pa And Lat (2 Views) XRAY In Process Unspecified. EDMS 13:30 Patient has correct armband on for positive identification. Bed in low position. Call sg light in reach. Side rails up X 1. 13:37 Carlos Acosta, RN is Primary Nurse. sg 14:15 No provider procedures requiring assistance completed. Patient did not have IV access sg during this emergency room visit. Administered Medications: 13:45 Drug: Tussionex Pennkinetic ER 5 ml Route: PO; sg 14:20 Follow up: Response: No adverse reaction sg Outcome: 14:03 Discharge ordered by . snw 14:21 Patient left the ED. sg 14:30 Discharged to home ambulatory, with family. sg 14:30 Condition: stable 14:30 Discharge instructions given to patient, Instructed on discharge instructions, follow up and referral plans. medication usage, Demonstrated understanding of instructions, follow-up care, medications, Prescriptions given X 3. Signatures: Dispatcher [employer] [facility] Virginia Moise RN RN aj1 Carlos Acosta, RN RN Rea Faith FNP-C FNP-[place] Kelsie Monroe rg4
--- NOTE | 2019-09-26 14:05 | EDPHYS ---
Physician Documentation [facility] Name: Jr Jane Age: 69 yrs Sex: Male : 1950 Arrival Date: 09/26/2019 Time: 11:35 Bed 20 Private MD: ED Physician Travis Puri HPI: 09/26 13:38 This 69 yrs old Male presents to ER via Ambulatory with complaints of Cough, snw Wheezing, Breathing Difficulty. 13:38 The patient or guardian reports airway noise, cough, described as moderate, flu snw symptoms, arthralgias, low-grade fever, myalgias, no appetite. Onset: The symptoms/episode began/occurred suddenly, 2 day(s) ago, and became persistent. Severity of symptoms: At their worst the symptoms were moderate. Associated signs and symptoms: Pertinent positives: chest pain, earache, fever, sore throat. It is unknown whether or not the patient has had similar symptoms in the past. It is unknown whether or not the patient has recently seen a physician. family with similar s/s. Historical: - Allergies: 11:43 Bees; aj1 11:43 PENICILLINS; aj1 11:43 Demerol; aj1 - Home Meds: 11:43 aspirin 81 mg Oral chew 1 tab once daily [Active]; atorvastatin 80 mg Oral tab 1 tab aj1 once daily [Active]; cyanocobalamin (vitamin B-12) 1,000 mcg Oral tab daily [Active]; gabapentin 300 mg Oral cap twice a day [Active]; lisinopril 5 mg Oral tab 1 tab once daily [Active]; magnesium oxide 420 mg Oral tab daily [Active]; meloxicam 15 mg Oral tab 1 tab once daily [Active]; metformin 1,000 mg Oral tab 1 tab twice a day [Active]; Tylenol Oral [Active]; - PMHx: 11:43 Depression; Diabetes - NIDDM; Hypertension; Myocardial infarction; TIA; aj1 - Immunization history:: Flu vaccine is up to date. - Social history:: Smoking status: Patient/guardian denies using tobacco. - Ebola Screening: : Patient denies travel to an Ebola-affected area in the 21 days before illness onset. ROS: 13:36 Eyes: Negative for injury, pain, redness, and discharge, ENT: Negative for injury, snw pain, and discharge, Neck: Negative for injury, pain, and swelling, Cardiovascular: Negative for chest pain, palpitations, and edema. 13:36 Abdomen/GI: Negative for abdominal pain, nausea, vomiting, diarrhea, and constipation, Back: Negative for injury and pain, : Negative for injury, bleeding, discharge, and swelling, MS/Extremity: Negative for injury and deformity, Skin: Negative for injury, rash, and discoloration, Neuro: Negative for headache, weakness, numbness, tingling, and seizure. 13:36 Constitutional: Positive for body aches, chills, fatigue, fever, malaise. 13:36 Respiratory: Positive for cough, with no reported sputum, pleurisy. Exam: 13:36 Abdomen/GI: Soft, non-tender, with normal bowel sounds. No distension or tympany. No snw guarding or rebound. No evidence of tenderness throughout. Back: No spinal tenderness. No costovertebral tenderness. Full range of motion. Skin: Warm, dry with normal turgor. Normal color with no rashes, no lesions, and no evidence of cellulitis. MS/ Extremity: Pulses equal, no cyanosis. Neurovascular intact. Full, normal range of motion. Neuro: Awake and alert, GCS 15, oriented to person, place, time, and situation. Cranial nerves II-XII grossly intact. Motor strength 5/5 in all extremities. Sensory grossly intact. Cerebellar exam normal. Normal gait. Psych: Awake, alert, with orientation to person, place and time. Behavior, mood, and affect are within normal limits. 13:36 Head/Face: Normocephalic, atraumatic. Eyes: Pupils equal round and reactive to light, extra-ocular motions intact. Lids and lashes normal. Conjunctiva and sclera are non-icteric and not injected. Cornea within normal limits. Periorbital areas with no swelling, redness, or edema. ENT: Nares patent. No nasal discharge, no septal abnormalities noted. Tympanic membranes are normal (right mildly erythematous) and external auditory canals are clear. Oropharynx with no redness, swelling, or masses, exudates, or evidence of obstruction, uvula midline. Mucous membranes moist. Neck: Trachea midline, no thyromegaly or masses palpated, and no cervical lymphadenopathy. Supple, full range of motion without nuchal rigidity, or vertebral point tenderness. No Meningismus. Chest/axilla: Normal chest wall appearance and motion. Nontender with no deformity. No lesions are appreciated. 13:36 Constitutional: The patient appears alert, frail, uncomfortable. 13:36 Cardiovascular: Heart sounds: normal. 13:36 Respiratory: the patient does not display signs of respiratory distress, Respirations: shallow respirations, tachypnea, Breath sounds: bronchial sounds, + upper airway congestion. Vital Signs: 11:43 BP 136 / 76; Pulse 81; Resp 18; Temp 99.0; Pulse Ox 96% on R/A; Weight 103.87 kg (R); aj1 Height 5 ft. 8 in. (172.72 cm) (R); Pain 5/10; 11:43 Body Mass Index 34.82 (103.87 kg, 172.72 cm) aj1 MDM: 13:22 Patient medically screened. snw 14:05 Data reviewed: vital signs, nurses notes. Data interpreted: Pulse oximetry: on room air snw is 96 %. Interpretation: acceptable. Counseling: I had a detailed discussion with the patient and/or guardian regarding: the historical points, exam findings, and any diagnostic results supporting the discharge/admit diagnosis, the presence of at least one elevated blood pressure reading (>120/80) during this emergency department visit, lab results, radiology results, the need for outpatient follow up, to return to the emergency department if symptoms worsen or persist or if there are any questions or concerns that arise at home. Special discussion: Based on the patient's history, exam, and Dx evaluation, there is no indication for emergent intervention or inpatient Tx. It is understood by the patient/guardian that if the Sx's persist or worsen they need to return immediately for re-evaluation. Based on the history and exam findings, there is no indication for further emergent testing or inpatient evaluation. I discussed with the patient/guardian the need to see the primary care provider for further evaluation of the symptoms. 09/26 12:13 Order name: Flu; Complete Time: 14:02 snw 09/26 12:13 Order name: Chest Pa And Lat (2 Views) XRAY; Complete Time: 13:18 snw Administered Medications: 13:45 Drug: Tussionex Pennkinetic ER 5 ml Route: PO; sg 14:20 Follow up: Response: No adverse reaction sg Disposition: 15:11 Co-signature as Attending Physician, Travis Puri MD I [facility]. Disposition: 09/26/19 14:03 Discharged to Home. Impression: Influenza due to identified novel influenza A virus. - Condition is Stable. - Discharge Instructions: Influenza, Adult, Cough, Adult. - Prescriptions for Mobic 7.5 mg Oral Tablet - take 1 tablet by ORAL route once daily take with food; 10 tablet. Tylenol- Codeine #3 300-30 mg Oral Tablet - take 2 tablets by ORAL route every 6 hours As needed; 16 tablet. promethazine 25 mg Oral Tablet - take 1 tablet by ORAL route every 6 hours As needed; 20 tablet. - Medication Reconciliation Form, Thank You Letter, Antibiotic Education, Prescription Opioid Use form. - Follow up: Private Physician; When: 2 - 3 days; Reason: Recheck today's complaints, Continuance of care, Re-evaluation by your physician. Follow up: Emergency Department; When: As needed; Reason: Worsening of condition. Signatures: Dispatcher [employer] EDVirginia Mustafa RN RN ajCarlos Mireles RN RN sg Anderson, Corey, MD MD cha Therrien, Shelly, RESIDENTIAL PROGRAM DIRECTOR-C RESIDENTIAL PROGRAM DIRECTOR-Csnw Corrections: (The following items were deleted from the chart) 13:40 13:36 Head/Face: Normocephalic, atraumatic. Eyes: Pupils equal round and reactive to snw light, extra-ocular motions intact. Lids and lashes normal. Conjunctiva and sclera are non-icteric and not injected. Cornea within normal limits. Periorbital areas with no swelling, redness, or edema. ENT: Nares patent. No nasal discharge, no septal abnormalities noted. Tympanic membranes are normal and external auditory canals are clear. Oropharynx with no redness, swelling, or masses, exudates, or evidence of obstruction, uvula midline. Mucous membranes moist. Neck: Trachea midline, no thyromegaly or masses palpated, and no cervical lymphadenopathy. Supple, full range of motion without nuchal rigidity, or vertebral point tenderness. No Meningismus. Chest/axilla: Normal chest wall appearance and motion. Nontender with no deformity. No lesions are appreciated. snw 14:21 14:03 09/26/2019 14:03 Discharged to Home. Impression: Influenza due to identified sg novel influenza A virus. Condition is Stable. Forms are Medication Reconciliation Form, Thank You Letter, Antibiotic Education, Prescription Opioid Use. Follow up: Private Physician; When: 2 - 3 days; Reason: Recheck today's complaints, Continuance of care, Re-evaluation by your physician. Follow up: Emergency Department; When: As needed; Reason: Worsening of condition. jean
[2019-09-26 14:26] VITALS: BP 136/76; TEMP 99; O2SAT 96
== END 2019-09-26 14:21 | disposition home or self-care (01) ==
LOC: ER 11:32
DX: J10.1 Influenza due to other identified influenza virus with other respiratory manifestations (principal); I10 Essential (primary) hypertension; E11.9 Type 2 diabetes mellitus without complications; F32.9 Major depressive disorder, single episode, unspecified; I25.2 Old myocardial infarction; Z79.82 Long term (current) use of aspirin; Z88.0 Allergy status to penicillin; Z88.5 Allergy status to narcotic agent; Z91.030 Bee allergy status
CPT/HCPCS: 71046; 87804; 99283

== ENCOUNTER 2021-02-13 16:29 | Emergency (ER) | payer OTHER ==
[2021-02-13 17:18] LABS: Absolute Lymphocytes (CBC) 1.7 K/uL (0.7-4.9); Basophils % 0.8 % (0-1.3); Hematocrit 39.5 % (39.6-49.0); Lymphocytes % 28.2 % (15.3-44.8); MPV 9.3 fL (7.6-11.3); RBC Red Blood Cell Count 4.75 M/uL (4.33-5.43)
[2021-02-13 17:19] LABS: Protime INR 1.09
[2021-02-13 17:26] LABS: ALT/SGPT 56 U/L (12-78); AST/SGOT 55 U/L (15-37); Albumin 3.5 g/dL (3.4-5.0); Alkaline Phosphatase 63 U/L (45-117); BUN Blood Urea Nitrogen 10 mg/dL (7-18); Bicarbonate 24 mmol/L (21-32); Bilirubin Direct < 0.1 mg/dL (0-0.2); Bilirubin Total 0.3 mg/dL (0.2-1.0); Glucose Level 118 mg/dL (74-106); Magnesium 1.5 mg/dL (1.8-2.4); NT PRO-BNP 27 pg/mL (<125); Potassium 3.7 mmol/L (3.5-5.1); Protein, Total 7.4 g/dL (6.4-8.2); Sodium Level 139 mmol/L (136-145); Troponin (Emerg Dept Use Only) < 0.02 ng/mL (0.0-0.045)
--- NOTE | 2021-02-13 17:49 | RAD REPORT ---
EXAM DESCRIPTION: Neela Single View02/13/2021 5:02 pm CLINICAL HISTORY: Chest pain COMPARISON: 2019 FINDINGS: The lungs appear clear of acute infiltrate. The heart is mildly enlarged. Postsurgical changes involve the chest. IMPRESSION: No acute abnormalities displayed
--- NOTE | 2021-02-13 18:01 | ER ---
Nurse's Notes [facility] Name: Jr Jane Age: 70 yrs Sex: Male : 1950 Arrival Date: 02/13/2021 Time: 16:32 Bed 16 Private MD: Diagnosis: Chest pain, unspecified Presentation: 02/13 16:34 Chief complaint: EMS states: Pt stated weakness and Chest pain/pressure that radiates vg1 to the Right Arm. EMS stated pt EKG stated AFIB and pt has no hx of AFIB. Pt was given 324 mg of ASPIRIN PO x1 and 0.4 mg NITRO PO x1. Coronavirus screen: Client denies travel out of the [place] in the last 14 days. Ebola Screen: Patient negative for fever greater than or equal to 101.5 degrees Fahrenheit, and additional compatible Ebola Virus Disease symptoms. Initial Sepsis Screen: Does the patient meet any 2 criteria? No. Patient's initial sepsis screen is negative. Does the patient have a suspected source of infection? No. Patient's initial sepsis screen is negative. Risk Assessment: Do you want to hurt yourself or someone else? Patient reports no desire to harm self or others. Onset of symptoms was February 13, 2021. 16:34 Method Of Arrival: EMS: [facility] vg1 16:34 Acuity: [place] 3 vg1 Triage Assessment: 16:30 General: Appears in no apparent distress. comfortable, Behavior is calm, cooperative. vg1 Pain: Complains of pain in chest Pain radiates to right arm Pain currently is 4 out of 10 on a pain scale. Pain began this morning around 0900. EENT: No signs and/or symptoms were reported regarding the EENT system. Neuro: Level of Consciousness is awake, alert, obeys commands, Oriented to person, place, time, situation, Reports blurred vision headache. Cardiovascular: Patient's skin is warm and dry. Respiratory: Airway is patent Respiratory effort is even, unlabored. GI: Reports diarrhea, nausea. : No signs and/or symptoms were reported regarding the genitourinary system. Derm: Skin is intact, Skin is pink, warm \\T\\ dry. Musculoskeletal: Circulation, motion, and sensation intact. Historical: - Allergies: 16:39 Bees; vg1 16:39 Demerol; vg1 16:39 PENICILLINS; vg1 - Home Meds: 16:39 aspirin 81 mg Oral chew 1 tab once daily [Active]; atorvastatin 80 mg Oral tab 1 tab vg1 once daily [Active]; cyanocobalamin (vitamin B-12) 1,000 mcg Oral tab daily [Active]; lisinopril 5 mg Oral tab 1 tab once daily [Active]; metformin 1,000 mg Oral tab 1 tab twice a day [Active]; Amitriptyline Oral [Active]; donepezil oral oral [Active]; - PMHx: 16:39 Depression; Diabetes - NIDDM; Hypertension; Myocardial infarction; TIA; vg1 - PSHx: 16:39 Heart stents; vg1 - Immunization history:: Adult Immunizations up to date. - Social history:: Smoking status: Patient denies any tobacco usage or history of. Screenin:55 Abuse screen: Denies threats or abuse. Nutritional screening: No deficits noted. vg1 Tuberculosis screening: No symptoms or risk factors identified. Fall Risk No fall in past 12 months (0 pts). No secondary diagnosis (0 pts). IV access (20 points). Ambulatory Aid- None/Bed Rest/Nurse Assist (0 pts). Gait- Weak (10 pts.). Mental Status- Oriented to own ability (0 pts). Total Valentine Fall Scale indicates No Risk (0-24 pts). Assessment: 16:42 Reassessment: see triage. vg1 17:53 Reassessment: Patient appears in no apparent distress at this time. Patient and/or vg1 family updated on plan of care and expected duration. Pain level reassessed. Patient is alert, oriented x 3, equal unlabored respirations, skin warm/dry/pink. Patient denies pain at this time. 18:41 Reassessment: Patient appears in no apparent distress at this time. No changes from vg1 previously documented assessment. Patient is alert, oriented x 3, equal unlabored respirations, skin warm/dry/pink. Patient denies pain at this time. Patient states feeling better. 20:29 Reassessment: Patient appears in no apparent distress at this time. Patient and/or vg1 family updated on plan of care and expected duration. Pain level reassessed. Patient is alert, oriented x 3, equal unlabored respirations, skin warm/dry/pink. Patient denies pain at this time. Vital Signs: 16:34 BP 126 / 70; Pulse 82; Resp 18; Temp 99.0; Pulse Ox 100% ; Weight 99.79 kg; Height 5 vg1 ft. 8 in. (172.72 cm); Pain 4/10; 17:45 BP 129 / 80; Pulse 68; Resp 18; Pulse Ox 97% on R/A; vg1 18:00 BP 125 / 80; Pulse 72; Resp 18; Pulse Ox 98% on R/A; vg1 18:30 BP 136 / 79; Pulse 66; Resp 20; Pulse Ox 98% on R/A; vg1 19:00 BP 137 / 81; Pulse 67; Resp 20; Pulse Ox 98% ; vg1 19:30 BP 107 / 57; Pulse 58; Resp 18; Pulse Ox 97% on R/A; vg1 20:00 BP 120 / 76; Pulse 62; Resp 20; Pulse Ox 97% on R/A; vg1 20:30 BP 131 / 84; Pulse 58; Resp 18; Pulse Ox 96% on R/A; vg1 21:00 BP 134 / 80; Pulse 62; Resp 16; Pulse Ox 97% on R/A; vg1 16:34 Body Mass Index 33.45 (99.79 kg, 172.72 cm) vg1 ED Course: 16:32 Patient arrived in ED. tr6 16:34 Kelsea Monroe, CHANTELLE is Primary Nurse. vg1 16:37 Triage completed. vg1 16:44 Gulshan Mcelroy NP is PHCP. pm1 16:45 Travis Puri MD is Attending Physician. pm1 16:55 Initial lab(s) drawn, by tx, sent to lab. Maintain EMS IV. Dressing intact. Good blood vg1 return noted. Site clean \\T\\ dry. Gauge \\T\\ site: 20 g Left AC. 16:56 Arm band placed on. vg1 16:56 Patient has correct armband on for positive identification. Bed in low position. Call vg1 light in reach. Side rails up X2. 17:02 XRAY Chest (1 view) In Process Unspecified. EDMS 18:06 initiated a transfer with Meghan from the [facility]/ Per Meghan they eb request we fax patient records to [phone] to start the process. 18:31 Records sent to the [facility] as requested/ COVID results still pending/ [facility] requests eb results to be faxed over once we receive them. 19:20 faxed over patients' covid result to the [facility]. mw2 19:37 [facility] the [facility] spoke [facility] Meghan Connollyg to inform her that I faxed over the covid mw2 result. 20:57 called the [facility] spoke to [facility] to get a status update on the transfer. She stated "let mw2 me go check on the doctor and see what he is up to, then I'll give you a call back.". 21:01 connected Gulshan Mcelroy AUTOMOBILE MECHANIC ASSISTANT with the Emergency Doctor from the [facility]. mw2 21:04 administrative approval given by Meghan Christine/ patient has been accepted to [address] Emergency Department/ Dr. Swartz accepted the patient in transfer/ report to be called to [phone]. 21:16 No provider procedures requiring assistance completed. Patient transferred, IV remains vg1 in place. 21:54 IV is patent, is intact, Flushed left antecubital with 2 ml normal saline. vg1 Administered Medications: No medications were administered Outcome: 18:01 ER care complete, transfer ordered by MD. pm1 21:16 Transferred by ground EMS to [facility] vg1 21:16 Condition: stable 21:16 Instructed on the need for transfer. 21:55 Patient left the ED. vg1 Signatures: Dispatcher [employer] EDMS Gulshan Mcelroy NP AUTOMOBILE MECHANIC ASSISTANT pm1 Bouchra Weeks mw2 Shayla Peter Victoria, RN RN vg1 Phuong Lang, CHANTELLE RN tr6 Corrections: (The following items were deleted from the chart) 21:28 19:20 faxed over patients' covid result eb mw2 21:28 19:37 called the [facility] spoke to [facility] to inform her that I faxed over the covid result. mw2 eb 21: 20:57 called the [facility] spoke to [facility] to get a status update on the transfer. She stated mw2 "let me go check on the doctor and see what he is up to, then I'll give you a call back." eb 21:28 21:01 connected Gulshan Mcelroy AUTOMOBILE MECHANIC ASSISTANT with the Emergency Doctor from the [place] [id number] vlad 21:28 21:04 administrative approval given by Meghan Christine/ patient has been accepted to [address] Emergency Department/ Dr. Swartz accepted the patient in transfer/ report to be called to [phone]
--- NOTE | 2021-02-13 18:01 | EDPHYS ---
Physician Documentation [facility] Name: Jr Jane Age: 70 yrs Sex: Male : 1950 Arrival Date: 02/13/2021 Time: 16:32 Bed 16 Private MD: ED Physician Travis Puri HPI: 02/13 16:53 This 70 yrs old Male presents to ER via EMS with complaints of Chest Pain. pm1 16:53 The patient or guardian reports chest pain that is located primarily in the anterior pm1 aspect of right upper chest, anterior aspect of left upper chest and mid-sternal area. Onset: 3 day(s) ago. The pain radiates to Associated signs and symptoms: Pertinent positives: shortness of breath, this AM, Pertinent negatives: abdominal pain, cough, nausea, palpitations, vomiting. The chest pain is described as a pressure. Duration: The patient or guardian reports multiple episodes, that have now resolved, with nitro by EMS. Modifying factors: The symptoms are alleviated by NTG, the symptoms are aggravated by nothing. Severity of pain: in the emergency department the pain has resolved after treatment by EMS personnel. The patient has not recently seen a physician, the patient's primary care provider is Dr. Sasha SUN at the [place]. History of quadruple bypass about 10 years ago and 7 stents prior to that. Historical: - Allergies: 16:39 Bees; vg1 16:39 Demerol; vg1 16:39 PENICILLINS; vg1 - Home Meds: 16:39 aspirin 81 mg Oral chew 1 tab once daily [Active]; atorvastatin 80 mg Oral tab 1 tab vg1 once daily [Active]; cyanocobalamin (vitamin B-12) 1,000 mcg Oral tab daily [Active]; lisinopril 5 mg Oral tab 1 tab once daily [Active]; metformin 1,000 mg Oral tab 1 tab twice a day [Active]; Amitriptyline Oral [Active]; donepezil oral oral [Active]; - PMHx: 16:39 Depression; Diabetes - NIDDM; Hypertension; Myocardial infarction; TIA; vg1 - PSHx: 16:39 Heart stents; vg1 - Immunization history:: Adult Immunizations up to date. - Social history:: Smoking status: Patient denies any tobacco usage or history of. ROS: 16:53 Constitutional: Negative for fever, chills, and weight loss, Eyes: Negative for injury, pm1 pain, redness, and discharge, ENT: Negative for injury, pain, and discharge, Neck: Negative for injury, pain, and swelling. 16:53 Abdomen/GI: Negative for abdominal pain, nausea, vomiting, diarrhea, and constipation, Back: Negative for injury and pain, MS/Extremity: Negative for injury and deformity, Skin: Negative for injury, rash, and discoloration, Neuro: Negative for headache, weakness, numbness, tingling, and seizure. 16:53 Cardiovascular: Positive for chest pain, Negative for edema, palpitations. 16:53 Respiratory: Positive for shortness of breath, Negative for cough, sputum production, wheezing. Exam: 16:53 Constitutional: This is a well developed, well nourished patient who is awake, alert, pm1 and in no acute distress. Head/Face: Normocephalic, atraumatic. 16:53 Skin: Warm, dry with normal turgor. Normal color with no rashes, no lesions, and no evidence of cellulitis. MS/ Extremity: Pulses equal, no cyanosis. Neurovascular intact. Full, normal range of motion. 16:53 Eyes: Exam is negative for acute changes, Extraocular movements: intact throughout, Conjunctiva: normal, Sclera: icterus, is not appreciated. 16:53 ENT: Exam is negative for Mouth: Lips: normal, Oral mucosa: normal, pink and intact, moist. 16:53 Neck: Exam negative for acute changes, ROM/movement: is normal, is supple. 16:53 Chest/axilla: Inspection: normal, Palpation: is normal, no crepitus, no tenderness. 16:53 Cardiovascular: Rate: normal, Rhythm: regular, Pulses: no pulse deficits are appreciated, Heart sounds: normal, normal S1and S2, Edema: is not appreciated. 16:53 Respiratory: Exam negative for acute changes, respiratory distress, shortness of breath, Breath sounds: are clear throughout. 16:53 Abdomen/GI: Inspection: obese Palpation: abdomen is soft and non-tender, in all quadrants. 16:53 Neuro: Exam negative for acute changes, Orientation: is normal, Mentation: is normal, Motor: is normal, moves all fours. Vital Signs: 16:34 BP 126 / 70; Pulse 82; Resp 18; Temp 99.0; Pulse Ox 100% ; Weight 99.79 kg; Height 5 vg1 ft. 8 in. (172.72 cm); Pain 4/10; 17:45 BP 129 / 80; Pulse 68; Resp 18; Pulse Ox 97% on R/A; vg1 18:00 BP 125 / 80; Pulse 72; Resp 18; Pulse Ox 98% on R/A; vg1 18:30 BP 136 / 79; Pulse 66; Resp 20; Pulse Ox 98% on R/A; vg1 19:00 BP 137 / 81; Pulse 67; Resp 20; Pulse Ox 98% ; vg1 19:30 BP 107 / 57; Pulse 58; Resp 18; Pulse Ox 97% on R/A; vg1 20:00 BP 120 / 76; Pulse 62; Resp 20; Pulse Ox 97% on R/A; vg1 20:30 BP 131 / 84; Pulse 58; Resp 18; Pulse Ox 96% on R/A; vg1 21:00 BP 134 / 80; Pulse 62; Resp 16; Pulse Ox 97% on R/A; vg1 16:34 Body Mass Index 33.45 (99.79 kg, 172.72 cm) vg1 MDM: 16:53 Patient medically screened. antonio 17:15 Data reviewed: vital signs. Data interpreted: Pulse oximetry: on room air is 100 %. pm1 Interpretation: normal. 17:59 Counseling: I had a detailed discussion with the patient and/or guardian regarding: the pm1 historical points, exam findings, and any diagnostic results supporting the discharge/admit diagnosis, lab results, radiology results, the need for further work-up and treatment in the hospital. 21:12 Physician consultation: ER MD Swartz was called at 21:05, was contacted at 21:05, pm1 regarding regarding transfer, patient's condition. 02/13 16:43 Order name: Basic Metabolic Panel; Complete Time: 17:46 [facility] 02/13 16:43 Order name: CBC with Diff; Complete Time: 17:46 [facility] 02/13 16:43 Order name: LFT's; Complete Time: 17:46 [facility] 02/13 16:43 Order name: Magnesium; Complete Time: 17:46 [facility] 02/13 16:43 Order name: NT PRO-BNP; Complete Time: 17:46 [facility] 02/13 16:43 Order name: PT-INR; Complete Time: 17:46 [facility] 02/13 16:43 Order name: Troponin (emerg Dept Use Only); Complete Time: 17:46 [facility] 02/13 16:43 Order name: XRAY Chest (1 view); Complete Time: 17:51 [facility] 02/13 16:43 Order name: EKG; Complete Time: 16:43 [facility] 02/13 16:43 Order name: Cardiac monitoring; Complete Time: 16:43 [facility] 02/13 16:43 Order name: EKG - Nurse/Tech; Complete Time: 16:43 [facility] 02/13 18:02 Order name: COVID-19 : Document "Date of Symptom Onset" if Symptomatic. 1 02/13 19:17 Order name: SARS-COV-2 RT PCR; Complete Time: 19:37 [facility] 02/13 16:43 Order name: IV Saline Lock; Complete Time: 16:49 [facility] 02/13 16:43 Order name: Labs collected and sent; Complete Time: 16:49 [facility] 02/13 16:43 Order name: O2 Per Protocol; Complete Time: 16:43 [facility] 02/13 16:43 Order name: O2 Sat Monitoring; Complete Time: 16:43 1 Administered Medications: No medications were administered Disposition: 02/13/21 18:01 Transfer ordered to [facility]. Diagnosis is Chest pain, unspecified. - Reason for transfer: [facility]. - Accepting physician is [place] . - Condition is Stable. - Problem is new. - Symptoms have improved. Addendum: 02/15/2021 07:52 Co-signature as Attending Physician, Travis Puri MD I agree with the assessment and c mack plan of care. Signatures: Dispatcher [employer] [facility] Travis Puri MD MD cha Marinas, Patrick, SODA WORKER SODA WORKER pm1 Kelsea Monroe, RN RN vg1 Corrections: (The following items were deleted from the chart) 02/13 18:20 18:03 CORONAVIRUS ordered. [facility] 18:38 16:53 History of quadruple bypass about 6 years ago and stents prior to that. pm1 pm1 21:54 18:01 02/13/2021 18:01 [facility]. Diagnosis vg1 is Chest pain, unspecified. Reason for transfer: [facility] Physician at [facility]. Accepting physician is [place] MD. Condition is Stable. Problem is new. Symptoms have improved. pm1 21:55 21:54 02/13/2021 18:01 Transfer ordered to [facility]. Diagnosis vg1 is Chest pain, unspecified. Reason for transfer: Private Physician at [facility]. Accepting physician is [place] MD. Condition is Stable. Problem is new. Symptoms have improved. vg1
[2021-02-13 22:05] VITALS: TEMP 99
[2021-02-13 22:19] VITALS: BP 134/80; O2SAT 97
== END 2021-02-13 21:55 ==
LOC: ER 16:29
DX: R07.9 Chest pain, unspecified (principal); I10 Essential (primary) hypertension; I25.2 Old myocardial infarction; E11.9 Type 2 diabetes mellitus without complications; F32.9 Major depressive disorder, single episode, unspecified; Z20.822 Contact with and (suspected) exposure to COVID-19; Z79.82 Long term (current) use of aspirin; Z88.0 Allergy status to penicillin; Z88.5 Allergy status to narcotic agent; Z91.030 Bee allergy status; Z95.818 Presence of other cardiac implants and grafts
CPT/HCPCS: 93005; 85025; 80048; 36415; 83735; 85610; 80076; 84484; 83880; 71045; 99285; U0003

== ENCOUNTER 2021-04-30 11:19 | Emergency (ER) | payer OTHER ==
[2021-04-30] MEDS ORDERED: TETANUS & DIPHTHERIA TOX,ADULT 0.5 ML VIAL ONE (12:20)
[2021-04-30] MEDS ORDERED: HYDROCODONE/APAP 10/325 TAB ONE (12:51)
--- NOTE | 2021-04-30 13:00 | RAD REPORT ---
EXAM DESCRIPTION: RAD - Foot Right 3 View - 04/30/2021 12:31 pm CLINICAL HISTORY: Right foot pain status post injury FINDINGS: No fracture or dislocation is seen. A radiopaque foreign body is not seen. Diffuse edema is present the subcutaneous tissues. No destructive bony lesion seen
--- NOTE | 2021-04-30 13:24 | EDPHYS ---
Physician Documentation [facility] Name: Jr Jane Age: 71 yrs Sex: Male : 1950 Arrival Date: 04/30/2021 Time: 11:23 Bed DIS2 Private MD: ED Physician Travis Puri HPI: 04/30 12:15 This 71 yrs old Male presents to ER via Wheelchair with complaints of Feet pm1 Swelling, Puncture Wound To Foot. 12:15 The patient presents with a puncture wound, from a nail. The complaints affect the pm1 right foot. Context: The problem was sustained at home, resulted from the patient stepping on a nail, while wearing shoes, can ambulate using crutches. Onset: The symptoms/episode began/occurred yesterday. Modifying factors: the symptoms are aggravated by weight bearing. Associated signs and symptoms: Pertinent positives: swelling, Pertinent negatives: calf tenderness, fever, numbness, tingling. Severity of symptoms: in the emergency department the symptoms are actually worse. The patient has not experienced similar symptoms in the past. The patient has not recently seen a physician, the patient's primary care provider is Dr. Dr Green at the [place]. Historical: - Allergies: 11:50 Bees; iw 11:50 Demerol; iw 11:50 PENICILLINS; iw - Home Meds: 11:50 Tylenol Oral [Active]; metformin 1,000 mg Oral tab 1 tab twice a day [Active]; iw meloxicam 15 mg Oral tab 1 tab once daily [Active]; lisinopril 5 mg Oral tab 1 tab once daily [Active]; magnesium oxide 420 mg Oral tab daily [Active]; gabapentin 300 mg Oral cap twice a day [Active]; donepezil Oral [Active]; cyanocobalamin (vitamin B-12) 1,000 mcg Oral tab daily [Active]; atorvastatin 80 mg Oral tab 1 tab once daily [Active]; aspirin 81 mg Oral chew 1 tab once daily [Active]; Amitriptyline Oral [Active]; - PMHx: 11:50 Depression; Diabetes - NIDDM; Hypertension; Myocardial infarction; TIA; iw - PSHx: 11:50 CABG; iw - Immunization history:: Adult Immunizations up to date, Client reports receiving the 2nd dose of the Covid vaccine, Date received: November 2020 Moderna Client reports receiving the 1st dose of the Covid vaccine, November 2020 [facility]. - Social history:: Smoking status: Patient denies any tobacco usage or history of. - Immunization history: Last tetanus immunization: unknown. ROS: 12:19 MS/extremity: Positive for pain, swelling, Puncture wound to ball of right foot, of the pm1 right foot, Negative for decreased range of motion, deformity. 12:19 Constitutional: Negative for fever, chills, and weight loss, Cardiovascular: Negative for chest pain, palpitations, and edema, Respiratory: Negative for shortness of breath, cough, wheezing, and pleuritic chest pain. 12:19 Neuro: Negative for headache, weakness, numbness, tingling, and seizure. 12:19 Skin: Positive for puncture, of the ball of right foot. 12:19 All other systems are negative. Exam: 12:19 Constitutional: This is a well developed, well nourished patient who is awake, alert, pm1 and in no acute distress. Head/Face: Normocephalic, atraumatic. 12:19 Cardiovascular: Rate: normal, Rhythm: regular, Pulses: no pulse deficits are appreciated. 12:19 Respiratory: Exam negative for acute changes, respiratory distress, shortness of breath. 12:19 Musculoskeletal/extremity: Extremities: grossly normal except: noted in the ball of right foot: swelling, tenderness, There is no evidence of cellulitis, discharge, ROM: intact in all extremities, Circulation is intact in all extremities. 12:19 Skin: injury, puncture(s), of the ball of right foot. 12:19 Neuro: Exam negative for acute changes, Orientation: is normal, Mentation: is normal, Motor: is normal, moves all fours. Vital Signs: 11:48 BP 134 / 72; Pulse 78; Resp 20; Temp 97.6(TE); Pulse Ox 97% on R/A; Weight 104.33 kg iw (R); Height 5 ft. 8 in. (172.72 cm); Pain 10/10; 13:51 BP 137 / 78; Pulse 75; Resp 20; Pulse Ox 99% on R/A; Pain 6/10; kg 11:48 Body Mass Index 34.97 (104.33 kg, 172.72 cm) iw MDM: 12:04 Patient medically screened. pm1 13:22 Data reviewed: vital signs. Data interpreted: Pulse oximetry: on room air is 97 %. pm1 Interpretation: normal. Counseling: I had a detailed discussion with the patient and/or guardian regarding: the historical points, exam findings, and any diagnostic results supporting the discharge/admit diagnosis, radiology results, the need for outpatient follow up, to return to the emergency department if symptoms worsen or persist or if there are any questions or concerns that arise at home. 04/30 11:54 Order name: XRAY Foot RIGHT 3 View; Complete Time: 13:21 iw Administered Medications: 12:00 Drug: Tetanus-Diphtheria Toxoid Adult 0.5 ml {Communications Project Lead: [employer]. Exp: iw 05/11/2021. Lot #: [id number]. } Route: IM; Site: right deltoid; 13:52 Follow up: Response: No adverse reaction kg 12:31 Drug: [place] (HYDROcodone-acetaminophen) 10 mg-325 mg 1 tabs Route: PO; iw 13:52 Follow up: Response: No adverse reaction; Pain is decreased kg Disposition: 05/01 09:15 Co-signature as Attending Physician, Travis Puri MD I agree with the assessment and antonio plan of care. Disposition Summary: 04/30/21 13:23 Discharge Ordered Location: Home pm1 Problem: new pm1 Symptoms: have improved pm1 Condition: Stable pm1 Diagnosis - Puncture wound without foreign body, right foot pm1 Followup: pm1 - With: Emergency Department - When: As needed - Reason: Worsening of condition Followup: pm1 - With: Private Physician - When: 2 - 3 days - Reason: Recheck today's complaints, Continuance of care, Re-evaluation by your physician Discharge Instructions: - Discharge Summary Sheet pm1 - Puncture Wound pm1 Forms: - Medication Reconciliation Form pm1 - Thank You Letter pm1 - Antibiotic Education pm1 - Prescription Opioid Use pm1 Prescriptions: - Tramadol 50 mg Oral Tablet - take 1 tablet by ORAL route every 8 hours as needed; 12 tablet; Refills: 0, pm1 Product Selection Permitted - Cipro 500 mg Oral Tablet - take 1 tablet by ORAL route every 12 hours for 10 days; 20 tablet; Refills: 0, pm1 Product Selection Permitted - Bactrim DS 800-160 mg Oral Tablet - take 1 tablet by ORAL route every 12 hours for 10 days; 20 tablet; Refills: 0, pm1 Product Selection Permitted Signatures: Dispatcher [employer] Travis Pablo MD MD cha Williams, Irene, RN RN iw Gulshan Mcelroy, SENIOR FINANCE MANAGER SENIOR FINANCE MANAGER pm1 Madeleine Bustamante RN RN kg
--- NOTE | 2021-04-30 13:24 | ER ---
Nurse's Notes [facility] Name: Jr Jane Age: 71 yrs Sex: Male : 1950 Arrival Date: 04/30/2021 Time: 11:23 Bed DIS2 Private MD: Diagnosis: Puncture wound without foreign body, right foot Presentation: 04/30 11:48 Chief complaint: Patient states: Right foot pain x 1 day. Pt stepped on nail at the iw ball of his right foot. Swelling and redness noted. Coronavirus screen: Client denies travel out of the [place] in the last 14 days. At this time, unable to obtain information related to travel outside the [place] Ebola Screen: Patient negative for fever greater than or equal to 101.5 degrees Fahrenheit, and additional compatible Ebola Virus Disease symptoms Patient denies exposure to infectious person. Patient denies travel to an Ebola-affected area in the 21 days before illness onset. Initial Sepsis Screen: Does the patient meet any 2 criteria? No. Patient's initial sepsis screen is negative. Does the patient have a suspected source of infection? No. Patient's initial sepsis screen is negative. Risk Assessment: Do you want to hurt yourself or someone else? Patient reports no desire to harm self or others. Onset of symptoms was April 29, 2021. 11:48 Method Of Arrival: Wheelchair iw 11:48 Acuity: [place] 4 iw Triage Assessment: 11:50 General: Appears in no apparent distress. Behavior is calm, cooperative, appropriate iw for age, quiet. Pain: Complains of pain in right foot. Historical: - Allergies: 11:50 Bees; iw 11:50 Demerol; iw 11:50 PENICILLINS; iw - Home Meds: 11:50 Tylenol Oral [Active]; metformin 1,000 mg Oral tab 1 tab twice a day [Active]; iw meloxicam 15 mg Oral tab 1 tab once daily [Active]; lisinopril 5 mg Oral tab 1 tab once daily [Active]; magnesium oxide 420 mg Oral tab daily [Active]; gabapentin 300 mg Oral cap twice a day [Active]; donepezil Oral [Active]; cyanocobalamin (vitamin B-12) 1,000 mcg Oral tab daily [Active]; atorvastatin 80 mg Oral tab 1 tab once daily [Active]; aspirin 81 mg Oral chew 1 tab once daily [Active]; Amitriptyline Oral [Active]; - PMHx: 11:50 Depression; Diabetes - NIDDM; Hypertension; Myocardial infarction; TIA; iw - PSHx: 11:50 CABG; iw - Immunization history:: Adult Immunizations up to date, Client reports receiving the 2nd dose of the Covid vaccine, Date received: November 2020 Client reports receiving the 1st dose of the Covid vaccine, November 2020. - Social history:: Smoking status: Patient denies any tobacco usage or history of. - Immunization history: Last tetanus immunization: unknown. Screenin:53 Abuse screen: Denies threats or abuse. Denies injuries from another. Nutritional iw screening: No deficits noted. Tuberculosis screening: No symptoms or risk factors identified. Fall Risk Fall in past 12 months (25 points). Secondary diagnosis (15 points) impaired mobility, No IV (0 pts). Ambulatory Aid- Crutches/Cane/Walker (15 pts). Gait- Impaired (20 pts.). Mental Status- Oriented to own ability (0 pts). Total Valentine Fall Scale indicates Low Risk Score (25-44 pts). Fall prevention measures have been instituted. Side Rails Up X 2 Placed close to Nursing Station Frequent Obs/Assesments occuring As available Patient and Family Educated on Fall Prevention Program and strategies. Vital Signs: 11:48 BP 134 / 72; Pulse 78; Resp 20; Temp 97.6(TE); Pulse Ox 97% on R/A; Weight 104.33 kg iw (R); Height 5 ft. 8 in. (172.72 cm); Pain 10/10; 13:51 BP 137 / 78; Pulse 75; Resp 20; Pulse Ox 99% on R/A; Pain 6/10; kg 11:48 Body Mass Index 34.97 (104.33 kg, 172.72 cm) iw ED Course: 11:23 Patient arrived in ED. as 11:49 Triage completed. iw 11:50 Arm band placed on left wrist. iw 11:53 Patient has correct armband on for positive identification. iw 12:03 Gulshan Mcelroy NP is PHCP. pm1 12:03 Travis Puri MD is Attending Physician. pm1 12:30 XRAY Foot RIGHT 3 View In Process Unspecified. EDMS 13:51 Madeleine Bustamante, RN is Primary Nurse. kg 13:52 No provider procedures requiring assistance completed. Patient did not have IV access kg during this emergency room visit. Administered Medications: 12:00 Drug: Tetanus-Diphtheria Toxoid Adult 0.5 ml {[employer] Garment Alteration: [employer]. Exp: iw 05/11/2021. Lot #: [id number]. } Route: IM; Site: right deltoid; 13:52 Follow up: Response: No adverse reaction kg 12:31 Drug: [place] (HYDROcodone-acetaminophen) 10 mg-325 mg 1 tabs Route: PO; iw 13:52 Follow up: Response: No adverse reaction; Pain is decreased kg Outcome: 13:23 Discharge ordered by MD. pm1 13:52 Discharged to home via wheelchair. kg 13:52 Condition: improved 13:52 Discharge instructions given to patient, Instructed on discharge instructions, follow up and referral plans. Demonstrated understanding of instructions, follow-up care, medications, wound care, Prescriptions given X 3. 13:53 Patient left the ED. kg Signatures: Dispatcher [employer] Natalie Mackay as Regine Rocha, RN RN iw Gulshan Mcelroy NP MOTOR AND CHASSIS INSPECTOR pm1 Madeleine Bustamante, RN RN kg
[2021-04-30 14:01] VITALS: TEMP 97.6
[2021-04-30 14:02] VITALS: BP 137/78; O2SAT 99
== END 2021-04-30 13:53 | disposition home or self-care (01) ==
LOC: ER 11:19
DX: S91.331A Puncture wound without foreign body, right foot, initial encounter (principal); W45.0XXA Nail entering through skin, initial encounter; Y93.01 Activity, walking, marching and hiking; Y92.009 Unspecified place in unspecified non-institutional (private) residence as the place of occurrence of the external cause; I10 Essential (primary) hypertension; E11.9 Type 2 diabetes mellitus without complications; F32.9 Major depressive disorder, single episode, unspecified; Z23 Encounter for immunization; Z79.82 Long term (current) use of aspirin; Z88.0 Allergy status to penicillin; Z88.5 Allergy status to narcotic agent; Z95.1 Presence of aortocoronary bypass graft; Z91.030 Bee allergy status
CPT/HCPCS: 90471; 90714; 99283

== ENCOUNTER 2022-04-27 03:53 | Inpatient (IN) | payer OTHER ==
[2022-04-27 04:36] LABS: Absolute Lymphocytes (CBC) 1.5 K/uL (0.7-4.9); Hematocrit 37.9 % (39.6-49.0); Lymphocytes % 26.1 % (15.3-44.8); MCV 85.9 fL (80-100); MPV 8.9 fL (7.6-11.3); RBC Red Blood Cell Count 4.42 M/uL (4.33-5.43)
[2022-04-27 04:42] LABS: Protime INR 1.19
[2022-04-27 06:01] LABS: Albumin 3.5 g/dL (3.4-5.0); Bilirubin Direct 0.1 mg/dL (0-0.2); Bilirubin Total 0.5 mg/dL (0.2-1.0); Potassium 3.9 mmol/L (3.5-5.1); Protein, Total 7.1 g/dL (6.4-8.2); Troponin High Sensitivity 38.9 pg/mL (<58.9)
--- NOTE | 2022-04-27 06:12 | EDPHYS ---
Physician Documentation [facility] Name: Jr Jane Age: 72 yrs Sex: Male : 1950 Arrival Date: 04/27/2022 Time: 04:00 Bed 27 Private MD: ED Physician Tyler Seymour HPI: 04/27 04:40 This 72 yrs old Male presents to ER via EMS with complaints of chest pain. rn 04:40 The patient or guardian reports chest pain that is located primarily in the substernal rn area. Onset: 4 hour(s) ago. The pain radiates to the left arm, the scapula on both sides. Associated signs and symptoms: Pertinent negatives: abdominal pain, syncope, vomiting. The chest pain is described as a heaviness, squeezing. Duration: The patient or guardian reports multiple episodes, that are intermittent. Modifying factors: The symptoms are alleviated by NTG, the symptoms are aggravated by nothing. Severity of pain: At its worst the pain was moderate in the emergency department the pain has resolved. The patient has experienced similar episodes in the past. The patient has been recently seen by a physician:. Pt reports intermittent chest pain since midnight. Relieved by nitro each time. Currently pain free. Reports generalized weakness and malaise. No fever. Pain radiates to scapula and left arm. Historical: - Allergies: 04:05 Bees; ke1 04:05 Demerol; ke1 04:05 PENICILLINS; ke1 - PMHx: 04:05 Depression; Diabetes - NIDDM; Hypertension; Myocardial infarction; TIA; ke1 - PSHx: 04:05 CABG; ke1 - Immunization history:: Adult Immunizations up to date. - Social history:: Smoking status: Patient denies any tobacco usage or history of. - Family history:: not pertinent. - Hospitalizations: : No recent hospitalization is reported. ROS: 04:41 Constitutional: Negative for fever, chills, and weight loss, Eyes: Negative for injury, rn pain, redness, and discharge, Neck: Negative for injury, pain, and swelling, Cardiovascular: Negative for palpitations, and edema, Respiratory: Negative for cough, wheezing, and pleuritic chest pain, Abdomen/GI: Negative for abdominal pain, nausea, vomiting, diarrhea, and constipation, Back: Negative for injury and pain, MS/Extremity: Negative for injury and deformity, Skin: Negative for injury, rash, and discoloration, Neuro: Negative for headache, weakness, numbness, tingling, and seizure. Exam: 04:41 Constitutional: This is a well developed, well nourished patient who is awake, alert, rn and in no acute distress. Head/Face: Normocephalic, atraumatic. Eyes: Periorbital areas with no swelling, redness, or edema. Cardiovascular: Regular rate and rhythm. No pulse deficits. Respiratory: No increased work of breathing, no retractions or nasal flaring. Abdomen/GI: soft, non-tender Skin: Warm, dry MS/ Extremity: Pulses equal, no cyanosis. Neuro: Awake and alert, GCS 15 06:00 ECG was reviewed by the Attending Physician. rn Vital Signs: 04:00 BP 156 / 77; Pulse 66; Resp 20; Temp 98.2(O); Pulse Ox 95% on R/A; Weight 99.79 kg; ke1 Height 5 ft. 8 in. (172.72 cm); Pain 0/10; 04:00 BP 156 / 77; Pulse 64; Resp 19 S; Pulse Ox 95% on R/A; ha1 05:00 BP 136 / 74; Pulse 61; Resp 19 S; Pulse Ox 95% on R/A; ha1 06:00 BP 133 / 70; Pulse 63; Resp 17 S; Pulse Ox 96% on R/A; ha1 07:06 BP 141 / 69; Pulse 65; Resp 19 S; Pulse Ox 95% on R/A; ha1 04:00 Body Mass Index 33.45 (99.79 kg, 172.72 cm) [facility] MDM: 04:07 Patient medically screened. rn 06:06 Differential diagnosis: acute myocardial infarction, acute pericarditis, coronary rn artery disease chest wall pain, congestive heart failure cholecystitis, Cholelithiasis costochondritis, esophagitis, gastritis, gastroesophageal reflux disease (GERD), peptic ulcer disease, pneumothorax, pulmonary embolus, stable angina, unstable angina. The patient was not given aspirin in the Emergency Department. Administered by EMS. Data reviewed: vital signs, nurses notes, lab test result(s), EKG, radiologic studies, plain films, and as a result, I will admit patient. Counseling: I had a detailed discussion with the patient and/or guardian regarding: the historical points, exam findings, and any diagnostic results supporting the discharge/admit diagnosis, lab results, radiology results, the need for further work-up and treatment in the hospital. Response to treatment: the patient's symptoms have markedly improved after treatment, and as a result, I will admit patient. Admission orders: after a detailed discussion of the patient's condition and case, the admit orders are written by me. ED course: Pt with neg trop, nonspecific twave inversions lateral leads, offered transfer to [place] which patient initially preferring, then changed mind later to stay here because did not want ambulance ride and worried about weather. Will admit to Dr. Jonse. D-dimer neg, afebrile. No acute findings on CXR.. 04/27 04:07 Order name: Basic Metabolic Panel; Complete Time: 06:46 rn 04/27 04:07 Order name: CBC with Diff; Complete Time: 05:20 rn 04/27 04:07 Order name: D-Dimer; Complete Time: 05:20 rn 04/27 04:07 Order name: LFT's; Complete Time: 06:46 rn 04/27 04:07 Order name: NT PRO-BNP; Complete Time: 06:46 rn 04/27 04:07 Order name: PT-INR; Complete Time: 05:20 rn 04/27 04:07 Order name: Troponin HS; Complete Time: 06:46 rn 04/27 04:45 Order name: SARS-COV-2 Antigen Rapid; Complete Time: 06:46 rn 04/27 06:23 Order name: Lipase; Complete Time: 19:12 la1 04/27 09:33 Order name: Glucose, Ancillary Testing; Complete Time: 19:12 EDMS 04/27 10:34 Order name: Troponin High Sensitivity jh6 04/27 11:31 Order name: Troponin High Sensitivity; Complete Time: 19:12 EDMS 04/27 12:42 Order name: Glucose, Ancillary Testing; Complete Time: 19:12 EDMS 04/27 17:35 Order name: Troponin High Sensitivity; Complete Time: 19:12 EDMS 04/27 04:07 Order name: XRAY Chest (1 view); Complete Time: 19:12 rn 04/27 04:07 Order name: EKG; Complete Time: 04:08 rn 04/27 04:07 Order name: Cardiac monitoring; Complete Time: 04:18 rn 04/27 04:07 Order name: EKG - Nurse/Tech; Complete Time: 04:18 rn 04/27 04:07 Order name: IV Saline Lock; Complete Time: 04:32 rn 04/27 04:07 Order name: Labs collected and sent; Complete Time: 04:32 rn 04/27 17:43 Order name: Glucose, Ancillary Testing; Complete Time: 19:12 EDMS 04/27 19:53 Order name: Glucose, Ancillary Testing; Complete Time: 01:45 EDMS 04/28 00:08 Order name: Troponin High Sensitivity; Complete Time: 01:45 EDMS 04/28 03:54 Order name: CBC with Automated Diff EDMS 04/28 04:20 Order name: Comprehensive Metabolic Panel EDMS 04/28 04:20 Order name: Troponin High Sensitivity EDMS 04/28 04:20 Order name: Lipid Profile EDMS 04/28 04:31 Order name: LDL, Direct EDMS 04/28 07:35 Order name: Glucose, Ancillary Testing EDMS 04/28 11:27 Order name: Glucose, Ancillary Testing EDMS 04/27 04:07 Order name: O2 Per Protocol; Complete Time: 04:18 rn 04/27 04:07 Order name: O2 Sat Monitoring; Complete Time: 04:18 rn EC:00 Rate is 66 beats/min. Rhythm is regular. QRS [place] is Normal. MI interval is normal. QRS rn interval is normal. QT interval is normal. No Q waves. T waves are Inverted in leads I, aVL, V4, V5, V6. No ST changes noted. Clinical impression: NSR w/ Non-specific ST/T Changes. Interpreted by me. Reviewed by me. Administered Medications: No medications were administered Disposition Summary: 04/27/22 06:11 Hospitalization Ordered Hospitalization Status: Observation rn Provider: Panchito Jones rn Condition: Stable rn Problem: new rn Symptoms: have improved rn Bed/Room Type: Standard rn Location: Telemetry/MedSurg (observation)(04/28/22 12:26) ja1 Room Assignment: 403(04/28/22 12:26) ja1 Diagnosis - Chest pain, unspecified rn Forms: - Medication Reconciliation Form rn - SBAR form rn Signatures: Dispatcher [employer] EDMS Tyler Seymour MD MD rn Attema, Lee, SENIOR TECHNOLOGIST-C SENIOR TECHNOLOGIST-Cla1 Misha Kan, RN RN franky1 Winnie Pang RN RN 1 Ramses Shi, RN RN ke1 Corrections: (The following items were deleted from the chart) 06:08 06:06 ED course: Pt with neg trop, nonspecific twave inversions lateral leads, offered r[facility] which [facility], then changed mind later to stay here because did not want ambulance ride and worried about weather. Will admit to Dr. Jones. . rn 06:50 06:11 Telemetry/MedSurg (observation) rn 1 06:50 06:11 rn elizabeth 04/28 12:26 18 06:50 [facility] ER HOLD Jun [facility] 04/28 12:26 18 06:50 ERHOLD- [place] [id number]
--- NOTE | 2022-04-27 06:12 | ER ---
Nurse's Notes [facility] Name: Jr Jane Age: 72 yrs Sex: Male : 1950 Arrival Date: 04/27/2022 Time: 04:00 Bed 27 Private MD: Diagnosis: Chest pain, unspecified Presentation: 04/27 04:00 Chief complaint: EMS states: CP since midnight described as dull radiating to L ke1 shoulder , patient took nitro x 2 before Ems arrival that eased the pain. Coronavirus screen: Vaccine status: Patient reports receiving the 2nd dose of the covid vaccine. Client denies travel out of the [place] in the last 14 days. Ebola Screen: No symptoms or risks identified at this time. Initial Sepsis Screen: Does the patient meet any 2 criteria? No. Patient's initial sepsis screen is negative. Does the patient have a suspected source of infection? No. Patient's initial sepsis screen is negative. Risk Assessment: Do you want to hurt yourself or someone else? Patient reports no desire to harm self or others. Onset of symptoms was April 27, 2022 at 00:00. 04:00 Method Of Arrival: EMS: [facility] ke1 04:00 Acuity: [place] 3 ke1 Triage Assessment: 04:06 General: Appears in no apparent distress. Behavior is appropriate for age. Pain: Denies ke1 pain. Respiratory: Airway is patent Trachea midline Respiratory effort is even, unlabored, Respiratory pattern is regular, symmetrical. Historical: - Allergies: 04:05 Bees; ke1 04:05 Demerol; ke1 04:05 PENICILLINS; ke1 - PMHx: 04:05 Depression; Diabetes - NIDDM; Hypertension; Myocardial infarction; TIA; ke1 - PSHx: 04:05 CABG; ke1 - Immunization history:: Adult Immunizations up to date. - Social history:: Smoking status: Patient denies any tobacco usage or history of. - Family history:: not pertinent. - Hospitalizations: : No recent hospitalization is reported. Screenin:07 Abuse screen: Denies threats or abuse. Nutritional screening: No deficits noted. ke1 Tuberculosis screening: No symptoms or risk factors identified. Fall Risk None identified. Assessment: 04:00 General: Appears in no apparent distress. comfortable, Behavior is calm, cooperative. ha1 Pain: Complains of pain in chest Pain radiates to right shoulder Pain at worst was 9 out of 10 on a pain scale. Quality of pain is described as pressure, shooting, Pain began 3 hours ago. Is episodic, Alleviated by medications, rest, Aggravated by exercise. Neuro: Level of Consciousness is awake, alert, obeys commands, Oriented to person, place, time, situation, Moves all extremities. Full function Gait is steady, Speech is normal, Denies weakness blurred vision. Cardiovascular: Reports chest pain, since history of CABG Heart tones S1 S2 present Capillary refill < 3 seconds Clubbing of nail beds is absent Patient's skin is warm and dry. Rhythm is sinus rhythm. Respiratory: No deficits noted. Airway is patent Respiratory effort is even, unlabored, Respiratory pattern is regular, symmetrical, Breath sounds are clear bilaterally. GI: No signs and/or symptoms were reported involving the gastrointestinal system. Abdomen is round non-distended, Bowel sounds present X 4 quads. hyperactive in four quadrants. : No signs and/or symptoms were reported regarding the genitourinary system. EENT: No deficits noted. No signs and/or symptoms were reported regarding the EENT system. Derm: No deficits noted. No signs and/or symptoms reported regarding the dermatologic system. Skin is healthy with good turgor, Skin is pink, warm \T\ dry. Musculoskeletal: Circulation, motion, and sensation intact. Range of motion: intact in all extremities. 04:55 Reassessment: Patient and/or family updated on plan of care and expected duration. Pain ha1 level reassessed. Patient is alert, oriented x 3, equal unlabored respirations, skin warm/dry/pink. 05:53 Reassessment: Patient appears in no apparent distress at this time. No changes from ha1 previously documented assessment. Patient and/or family updated on plan of care and expected duration. Pain level reassessed. Patient is alert, oriented x 3, equal unlabored respirations, skin warm/dry/pink. 06:50 Reassessment: Patient appears in no apparent distress at this time. No changes from ha1 previously documented assessment. Patient and/or family updated on plan of care and expected duration. Pain level reassessed. Patient is alert, oriented x 3, equal unlabored respirations, skin warm/dry/pink. Vital Signs: 04:00 BP 156 / 77; Pulse 66; Resp 20; Temp 98.2(O); Pulse Ox 95% on R/A; Weight 99.79 kg; ke1 Height 5 ft. 8 in. (172.72 cm); Pain 0/10; 04:00 BP 156 / 77; Pulse 64; Resp 19 S; Pulse Ox 95% on R/A; ha1 05:00 BP 136 / 74; Pulse 61; Resp 19 S; Pulse Ox 95% on R/A; ha1 06:00 BP 133 / 70; Pulse 63; Resp 17 S; Pulse Ox 96% on R/A; ha1 07:06 BP 141 / 69; Pulse 65; Resp 19 S; Pulse Ox 95% on R/A; ha1 04:00 Body Mass Index 33.45 (99.79 kg, 172.72 cm) 1 ED Course: 04:00 Patient arrived in ED. ke1 04:00 Ramses Shi, RN is Primary Nurse. ke1 04:05 Triage completed. ke1 04:07 Tyler Seymour MD is Attending Physician. rn 04:07 Arm band placed on left wrist. ke1 04:07 Bed in low position. Call light in reach. Side rails up X 1. ke1 04:25 XRAY Chest (1 view) In Process Unspecified. EDMS 04:32 Maintain EMS IV. Dressing intact. Good blood return noted. Site clean \T\ dry. Gauge \T\ ke 1 site: 18 g L AC. 05:37 SARS-COV-2 Antigen Rapid Sent. ha1 06:10 Panchito Jones MD is Hospitalizing Provider. rn 07:06 Lipase Sent. 1 10:54 Troponin High Sensitivity Sent. on license of [facility] Administered Medications: No medications were administered Outcome: 06:11 Decision to Hospitalize by Provider. rn 04/28 13:16 Patient left the ED. eb Signatures: Dispatcher [employer] EDMS Tyler Seymour MD MD rn Herrera, Deanna on license of [facility] Shayla Peter Kouassi, RN RN ke1 Maryse Painter RN RN 1
--- NOTE | 2022-04-27 06:25 | P.HP ---
Certification for Inpatient Patient admitted to: Observation With expected LOS: <2 Midnights Patient will require the following post-hospital care: None Practitioner: I am a practitioner with admitting privileges, knowledge of patient current condition, hospital course, and medical plan of care. Services: Services provided to patient in accordance with Admission requirements found in Title 42 Section 412.3 of the Code of Federal Regulations <Brian Fairbanks - Last Filed: 04/27/22 06:21> Patient History Date of Service: 04/27/22 History of Present Illness: 72-year-old male with history of diabetes mellitus type [id number], hypertension, CAD status post CABG, TIA and hyperlipidemia presents the emergency department for chest pain. He reports the chest pain woke him from sleep described as dull/aching radiating to his jaw and between his shoulder blades. Patient took 2 nitroglycerin tablets which did relieve his pain. He reports he had a heart catheterization at the NH approximately 2 weeks ago was told he does have significant coronary artery disease but nothing amenable to intervention at that time. Initial troponin negative EKG without STEMI criteria chest x-ray without acute changes ED provider wishes to admit under observation for ACS rule out. - Past Medical/Surgical History Diabetic: Yes -: HIGH CHOLESTEROL -: HTN -: NIDDM -: CHEST WALL INJURY -: CABG Psychosocial/ Personal History: Patient lives at home with his family - Family History Mother -: Heart disease Father Notes: Brain Tumor - Social History Smoking Status: Never smoker Alcohol use: No CD- Drugs: No Caffeine use: Yes Place of Residence: Home <Brian Fairbanks - Last Filed: 04/27/22 06:21> Date of Service: 04/27/22 <Panchito Jones - Last Filed: 04/27/22 19:59> Allergies Penicillins Adverse Reaction (Verified 12/21/14 21:58) chest feels like it will explode PCN Allergy (Uncoded 12/24/14 18:45) Unknown Home Medications: Amitriptyline HCl 1 tab PO BEDTIME 01/02/19 Aspirin 81 mg PO DAILY 01/02/19 Atorvastatin Calcium [Lipitor] 80 mg PO BEDTIME 01/02/19 Cyanocobalamin [Vitamin B-12*] 1 tab PO DAILY 01/02/19 Metformin HCl [Metformin ER Osmotic] 1,000 mg PO BID 01/02/19 Metoprolol Succinate 50 mg PO DAILY #30 tab.er.24h 01/02/19 Nitroglycerin [Nitrostat*] 0.4 mg SL UD PRN #15 tab 01/02/19 Omeprazole 20 mg PO DAILY 01/02/19 lisinopriL [Lisinopril] 5 mg PO DAILY 01/02/19 Review of Systems 10-point ROS is otherwise unremarkable Cardiovascular: Chest Pain, As per HPI <Brian Fairbanks - Last Filed: 04/27/22 06:21> Physical Examination - Physical Exam General: Alert, In no apparent distress, Oriented x3 HEENT: Atraumatic, PERRLA, Mucous membr. moist/pink, EOMI, Sclerae nonicteric Neck: Supple, 2+ carotid pulse no bruit, No LAD, Without JVD or thyroid abnormality Respiratory: Clear to auscultation bilaterally, Normal air movement Cardiovascular: Regular rate/rhythm, Normal S1 S2 Gastrointestinal: Normal bowel sounds, No tenderness Musculoskeletal: No tenderness Integumentary: No rashes Neurological: Normal speech, Normal strength at 5/5 x4 extr, Normal tone, Normal affect Lymphatics: No axilla or inguinal lymphadenopathy - Studies Laboratory Data (last 24 hrs) 04/27/22 04:25: PT 13.1 H, INR 1.19 04/27/22 04:25: WBC 5.80, Hgb 13.1 L, Hct 37.9 L, Plt Count 132 L 04/27/22 04:25: Sodium 139, Potassium 3.9, BUN 15, Creatinine 1.04, Glucose 155 H, Total Bilirubin 0.5, AST 80 H, ALT 103 H, Alkaline Phosphatase 82 <Brian Fairbanks - Last Filed: 04/27/22 06:21> - Studies Laboratory Data (last 24 hrs) 04/27/22 06:43: Lipase 171 04/27/22 04:25: PT 13.1 H, INR 1.19 04/27/22 04:25: WBC 5.80, Hgb 13.1 L, Hct 37.9 L, Plt Count 132 L 04/27/22 04:25: Sodium 139, Potassium 3.9, BUN 15, Creatinine 1.04, Glucose 155 H, Total Bilirubin 0.5, AST 80 H, ALT 103 H, Alkaline Phosphatase 82 <Panchito Jones - Last Filed: 04/27/22 19:59> Assessment and Plan - Plan Assessment: Chest pain rule out ACShistory CAD S/P CABG Diabetes type [id number] Hypertension Hyperlipidemia Previous TIA Plan: Chest pain rule out ACShistory CAD S/P CABG: Cardiology consulted, trend troponins, monitor on telemetry. No STEMI criteria on EKG, patient reports recent heart catheterization at the NH approximately 2 weeks ago declined transfer to the NH at this time. We will attempt obtain records from the NH regarding heart catheterization. Appreciate further input from cardiology continue home medications including aspirin, lisinopril, ranolazine. Diabetes type [id number]: Mild sliding scale insulin. Hypertension: Lisinopril continued. Hyperlipidemia: Very mild elevation in AST/ALT monitor with CMP daily, continue statin for now. Previous TIA: Continue aspirin. DVT PPX:Lovenox Code status:Full Discharge Plan: Home Plan to discharge in: 24 Hours - Advance Directives Does patient have a Living Will: Yes Does patient have a Durable POA for Healthcare: No - Code Status/Comfort Care Code Status Assessed: Yes (Full code) Critical Care: No Time Spent Managing Pts Care (In Minutes): 70 <Brian Fairbanks - Last Filed: 04/27/22 06:21> Physician Review: Patient Assessed, Agree with Above Assessment and Plan Physician Review Additional Text: Since admission, his troponin has up trended from 38.9 to 484.7 to 2325.4, respectively. He will be switched from observation to inpatient status due to NSTEMI. I have consulted Cardiology and spoke with Dr. Florez. I have given full dose aspirin and enoxaparin. Continue atorvastatin, lisinopril, and ranolazine. Ranolazine was increased from 500 mg to 1000 mg per Cardiology recommendations. We will continue to trend serial troponin and monitor him on telemetry. If blood pressure allows, will consider adding beta-bella in the morning. Panchito Jones M.D. <Panchito Jones - Last Filed: 04/27/22 19:59>
[2022-04-27] MEDS ORDERED: ONDANSETRON 4 MG/2 ML VIAL IV PRN (06:35)
[2022-04-27] MEDS ORDERED: ACETAMINOPHEN 500 MG TAB PO PRN (06:35)
[2022-04-27] MEDS ORDERED: MORPHINE 2 MG/ML SYR IV PRN (06:35)
[2022-04-27] MEDS ORDERED: NITROGLYCERIN 0.4 MG/TAB SL PRN (06:35)
[2022-04-27 06:38] LABS: SARS-CoV-2 Antigen Rapid Res Negative (Negative)
[2022-04-27 06:39] VITALS: BMI 33.4
[2022-04-27] MEDS: INSULIN -REGULAR HUMAN 50 UNIT/0.5 ML ML SQ SCH ×4 (07:30→21:00)
[2022-04-27] MEDS ORDERED: PNEUMOCOCCAL VACCINE 0.5 ML IMVAC ONE (08:00)
[2022-04-27] MEDS ORDERED: ENOXAPARIN 40 MG/0.4 ML SQ SCH (09:00)
[2022-04-27] MEDS: ASPIRIN EC 81 MG TAB PO SCH (09:00)
[2022-04-27] MEDS: lisinopriL 20 MG TAB PO SCH (09:00)
--- NOTE | 2022-04-27 11:03 | RAD REPORT ---
EXAM DESCRIPTION: RAD - Chest Single View - 04/27/2022 4:23 am CLINICAL HISTORY: CHEST PAIN COMPARISON: None FINDINGS: The cardiac silhouette appears enlarged with prior median sternotomy. There is evidence of left basilar airspace disease with obscuration of the left heart border, possibly related to atelect asis/scarring. The lungs are otherwise clear bilaterally. No pleural effusion or pneumothorax. IMPRESSION: Minor left basilar airspace disease could be related to atelectasis or scarring from pre vious median sternotomy. No convincing evidence of an acute cardiopulmonary process. Electronically signed by: Álvaro Krfat MD 04/27/2022 5:45 AM CDT Due to temporary technical issues with the PACS/Fluency reporting system, reports are being signed by the in house radiologists without review as a courtesy to insure prompt reporting. The interpreting radiologist is fully responsible for the content of the report.
[2022-04-27] MEDS ORDERED: ASPIRIN 81 MG CHEWABLE TABLET PO ONE (13:16)
[2022-04-27] MEDS ORDERED: ENOXAPARIN 60 MG/0.6 ML SQ ONE ×2 (13:20→14:07)
[2022-04-27] MEDS ORDERED: ASPIRIN 81 MG CHEWABLE TABLET ONE (14:07)
--- NOTE | 2022-04-27 14:17 | ECHO ---
HEIGHT: 5 ft 8 in WEIGHT: 219 lb 15.989 oz DATE OF STUDY: 04/27/[address]: Brian Fairbanks NP 2-DIMENSIONAL: YES M.MODE: YES DOPPLER: YES COLOR FLOW: YES TDS: NO PORTABLE: YES DEFINITY: NO BUBBLE STUDY: NO DIAGNOSIS: CHEST PAIN CARDIAC HISTORY: CATHERIZATION: SURGERY: PROSTHETIC VALVE: PACEMAKER: MEASUREMENTS (cm) DIASTOLIC (NORMALS) SYSTOLIC (NORMALS) IVSd 1.2 (0.6-1.2) LA Diam 4.3 (1.9-4.0) LVEF 57% LVIDd 4.4 (3.5-5.7) LVIDs 3.1 (2.0-3.5) %FS 30% LVPWd 1.1 (0.6-1.2) Ao Diam 2.7 (2.0-3.7) 2 DIMENSIONAL ASSESSMENT: RIGHT ATRIUM: NORMAL LEFT ATRIUM: ENLARGED RIGHT VENTRICLE: NORMAL LEFT VENTRICLE: NORMAL TRICUSPID VALVE: MITRAL VALVE: PULMONIC VALVE: NORMAL AORTIC VALVE: NORMAL PERICARDIAL EFFUSION: NONE AORTIC ROOT: NORMAL LEFT VENTRICULAR WALL MOTION: NORMAL DOPPLER/COLOR FLOW: MILD AORTIC AND MITRAL REGURGITATION. MODERATE TRICUSPID REGURGITATION. COMMENTS: NORMAL LEFT VENTRICULAR EJECTION FRACTION 55-60%. NORMAL WALL MOTION. MILD AORTIC AND MITRAL REGURGITATION. MODERATE TRICUSPID REGURGITATION. TECHNOLOGIST: Allison LARA
--- NOTE | 2022-04-27 14:28 | EKG ---
Test Date: 2022-04-27 Test Time: 04:15:42 Hog Dropper: SUE MEASUREMENT RESULTS: Intervals: Rate: 66 IN: 168 QRSD: 88 QT: 396 QTc: 415 Warren: P: 46 IN: 168 QRS: 10 T: 116 INTERPRETIVE STATEMENTS: Normal sinus rhythm T wave abnormality, consider lateral ischemia Abnormal ECG Compared to ECG 02/13/2021 16:30:57 Myocardial infarct finding no longer present T-wave abnormality still present Possible ischemia still present Electronically Signed On 04-27-22 14:27:28 CDT by Mauro Pinzon
[2022-04-27] MEDS ORDERED: ATORVASTATIN 40 MG TAB ONE (21:20)
[2022-04-27] MEDS: ATORVASTATIN 40 MG TAB PO SCH (21:26)
[2022-04-28 03:50] LABS: Absolute Lymphocytes (CBC) 1.9 K/uL (0.7-4.9); Hematocrit 37.9 % (39.6-49.0); Lymphocytes % 27.4 % (15.3-44.8); MPV 9.2 fL (7.6-11.3); RBC Red Blood Cell Count 4.52 M/uL (4.33-5.43)
[2022-04-28 04:17] LABS: ALT/SGPT 95 U/L (12-78); AST/SGOT 84 U/L (15-37); Albumin 3.4 g/dL (3.4-5.0); Alkaline Phosphatase 58 U/L (45-117); BUN Blood Urea Nitrogen 12 mg/dL (7-18); Bicarbonate 28 mmol/L (21-32); Bilirubin Total 0.6 mg/dL (0.2-1.0); Glomerular Filtration Rate 82 ml/min (=/>90); Glucose Level 109 mg/dL (74-106); HDL Cholesterol 29 mg/dL (40-60); Potassium 3.8 mmol/L (3.5-5.1); Protein, Total 7.1 g/dL (6.4-8.2); Sodium Level 137 mmol/L (136-145)
[2022-04-28 04:20] LABS: Troponin High Sensitivity 4179.4 pg/mL (<58.9)
[2022-04-28 04:30] LABS: LDL, Direct 47 mg/dL (100-129)
[2022-04-28] MEDS: INSULIN -REGULAR HUMAN 50 UNIT/0.5 ML ML SQ SCH ×4 (07:30→20:37)
[2022-04-28] MEDS ORDERED: ASPIRIN EC 81 MG TAB PO ONE (07:33)
[2022-04-28] MEDS ORDERED: POTASSIUM CL SA 10 MEQ TAB PO ONE ×2 (07:33→09:00)
[2022-04-28] MEDS ORDERED: lisinopriL 20 MG TAB ONE (07:33)
[2022-04-28] MEDS ORDERED: ENOXAPARIN 100 MG/ML SYR SQ ONE (07:33)
[2022-04-28] MEDS: lisinopriL 20 MG TAB PO SCH (08:20)
[2022-04-28] MEDS: ENOXAPARIN 100 MG/ML SYR SQ SCH ×2 (08:20→20:37)
[2022-04-28] MEDS: ASPIRIN EC 81 MG TAB PO SCH (08:21)
--- NOTE | 2022-04-28 17:21 | P.DS ---
Admission Date: 04/27/22 Discharge Date: 04/28/22 Disposition: TRANSFER TO GENERAL HOSPITAL Comment: [facility] Discharge Condition: FAIR Reason for Admission: NSTEMI - Chest Pain Consultations: 1. Cardiology Hospital Course: DIAGNOSES: # Non-ST Segment Elevation Myocardial Infarction # Coronary Artery Disease s/p PCI x 7 and CABG (~2010) # Type II Diabetes Mellitus # History of Transient Ischemic Attack # Hypertension # Hyperlipidemia HOSPITAL COURSE: Mr. Jr Jane is a pleasant 72 year old male with a past medical history significant for coronary artery disease s/p PCI x7 and CABG (~2010), history of transient ischemic attack, hypertension, hyperlipidemia, type 2 diabetes mellitus who was admitted to the [facility] on 04/27/2022 for chest pain. He was admitted to the Medicine service for further evaluation. His EKG was reportedly without ST-segment elevations. Troponin would up-trend from 38.9 to 484.7 to 2325.4 to 4149.3 to 4179.4, respectively. A transthoracic echocardiogram revealed, "normal left ventricular ejection fraction 55-60 %. Normal wall motion. Mild aortic and mitral regurgitation. Moderate tricuspid regurgitation." Cardiology was consulted and he was evaluated by Dr. Florez. He was treated medically with aspirin, atorvastatin, and enoxaparin. Since he had a recent cardiac catheterization about 2 weeks ago at the [facility], Dr. Florez wanted to review those records prior to making any plans. After discussion with Mr. Jane, he stated that he would actually prefer that he be transferred to the [facility] for continuity of care. Transfer center was contacted and a doc to doc was completed with Dr. Booth at [facility], who has generously accepted him for transfer. On 04/28/2022, he was seen on morning rounds and deemed medically stable for transfer. He and his were given the opportunity to ask questions and reported no further questions. Furthermore, all questions were answered to the best of my ability. Today, I personally spent 35 minutes on his case, of which greater than 50% of the time was spent in patient education, counseling, and coordination of care as described above. Vital Signs/Physical Exam: Temp Pulse Resp BP Pulse Ox 97.3 F 60 14 125/71 98 04/28/22 16:00 04/28/22 16:00 04/28/22 16:00 04/28/22 16:00 04/28/22 16:00 General: Alert, In no apparent distress, Oriented x3 HEENT: Atraumatic, PERRLA, Mucous membr. moist/pink Neck: Supple, JVD not distended Respiratory: Clear to auscultation bilaterally, Normal air movement Cardiovascular: No edema, Regular rate/rhythm, Normal S1 S2, No gallops, No rubs, Systolic murmur (faint (II/ holosystolic)) Gastrointestinal: Normal bowel sounds, Soft and benign, Non-distended, No tenderness, No rebound, No guarding Musculoskeletal: No clubbing Integumentary: No rashes Neurological: Normal speech, Cranial nerves 3-12 intact, Normal affect Laboratory Data at Discharge: WBC 6.80 K/uL (4.3-10.9) D 04/28/22 03:03 Hgb 13.4 g/dL (13.6-17.9) L 04/28/22 03:03 Hct 37.9 % (39.6-49.0) L 04/28/22 03:03 Plt Count 137 K/uL (152-406) L 04/28/22 03:03 PT 13.1 SECONDS (9.5-12.5) H 04/27/22 04:25 INR 1.19 04/27/22 04:25 Sodium 137 mmol/L (136-145) 04/28/22 03:03 Potassium 3.8 mmol/L (3.5-5.1) 04/28/22 03:03 BUN 12 mg/dL (7-18) 04/28/22 03:03 Creatinine 0.98 mg/dL (0.55-1.3) 04/28/22 03:03 Glucose 109 mg/dL (74-106) H 04/28/22 03:03 Total Bilirubin 0.6 mg/dL (0.2-1.0) 04/28/22 03:03 AST 84 U/L (15-37) H 04/28/22 03:03 ALT 95 U/L (12-78) H 04/28/22 03:03 Alkaline Phosphatase 58 U/L (45-117) 04/28/22 03:03 Triglycerides 477 mg/dL (<150) H 04/28/22 03:03 Cholesterol 111 mg/dL (<200) 04/28/22 03:03 LDL Cholesterol Direct 47 mg/dL (100-129) L 04/28/22 03:03 HDL Cholesterol 29 mg/dL (40-60) L 04/28/22 03:03 Cholesterol/HDL Ratio 3.83 04/28/22 03:03 Lipase 171 U/L (73-393) 04/27/22 06:43 Home Medications: Amitriptyline HCl 1 tab PO DAILY 01/02/19 Aspirin 81 mg PO DAILY 01/02/19 Atorvastatin Calcium [Lipitor] 80 mg PO BEDTIME 01/02/19 Cyanocobalamin [Vitamin B-12*] 1 tab PO DAILY 01/02/19 Metformin HCl [Metformin ER Osmotic] 1,000 mg PO BID 01/02/19 lisinopriL [Lisinopril] 5 mg PO BID 01/02/19 Donepezil HCl 1 tab PO DAILY 04/28/22 Gabapentin 1 cap PO BID 04/28/22 Ranolazine [Ranolazine ER] 500 mg PO BID 04/28/22 carvediloL [Coreg*] 1 tab PO BID 04/28/22 Diet: AHA Activity: Ad edna Followup: NONE,NONE [Primary Care Provider] - Time spent managing pt's care (in minutes): 35
[2022-04-28] MEDS: ATORVASTATIN 40 MG TAB PO SCH (20:36)
[2022-04-28 22:32] VITALS: BP 131/69; TEMP 98
[2022-04-29 01:14] VITALS: O2SAT 100
--- NOTE | 2022-04-30 06:28 | PN ---
Date of Progress Note: 04/28/2022 Mr. Jane is 72, came in with non-STEMI and has a history of CABG with recent catheterization 2 wee ks ago at the [facility]. Records from the [facility] have been requested to see the diagnostic ca theterization report, but is still unavailable, but according to the family, he was told that all of his grafts were patent and he has some diffuse distal disease. Medical therapy was recommended then. Today, he is pain free. Troponin remains elevated. His echocardiogram was normal without any wall motion abnormalities. I feel comfortable with him going home on Coreg, Ranexa, aspirin, Lipitor, an d lisinopril. I think we need to increase his Ranexa to a 1000 b.i.d. He can go home and he will ob tain follow up with his television specialist at the [facility]. MARK ANTHONY/PATRICK Voice ID: [id number] Report ID: [id number]
--- NOTE | 2022-04-30 06:58 | CON ---
Date of Consultation: 04/27/2022 Reason For Consultation: Chest pain. History Of Present Illness: Mr. Jane is a 72-year-old Latin-[place] male, has had a history of d iabetes, hypertension, dyslipidemia, depression, and history of coronary artery disease, status post CABG. He 2 weeks ago underwent a heart catheterization at the [facility] because of chest pain and was found to have patent graft, diffuse distal disease, was treated with medical therapy. Came back to the hospital with chest pain. Initial troponin was 38. The second troponin was elevated at 4179. Patient was continuing to have some chest pain that he described as mild. Denied any nausea, vomit ing, diaphoresis, PND, orthopnea, pedal edema, palpitations, or syncope. Allergies: HE IS ALLERGIC TO PENICILLIN. Review of Systems: Negative. Social History: Negative. Family History: Noncontributory. Medications: At home include aspirin, lisinopril, Lipitor, Lovenox, and Ranexa. He is also taking C oreg. Physical Examination: Vital Signs: Stable. He was afebrile. HEENT: Negative. Neck: Supple with no bruit. Chest: Clear. Cardiac: Revealed regular rhythm and rate with S4 gallops. No murmurs or rubs. Abdomen: Benign. Extremities: Revealed no clubbing, cyanosis, or edema. Diagnostic Data: EKG showed lateral ischemia. Chest x-ray was negative. Troponin was elevated. Impression And Plan: Non-ST elevation myocardial infarction in a patient with history of CABG. Rece nt heart catheterization 2 weeks ago showed patent graft and distal disease. Patient's chest pain mack s improved. EKG showed lateral ischemia. I prefer we treat him medically. I would increase his Ran exa from 500 b.i.d. to 1000 b.i.d. Continue his beta-blockers. Continue lisinopril, aspirin, and Li pitor and continue Lovenox for now. If his chest pain worsens, we will consider another heart cathet erization, although patient is very hesitant about that and I agree with him. His other problems inc lude hypertension, dyslipidemia, and depression as well as diabetes. All those are fairly well contr olled. The case was discussed with Dr. Jones. MARK ANTHONY/PATRICK Voice ID: [id number] Report ID: [id number]
== END 2022-04-28 23:35 | disposition short-term general hospital (02) | DRG 282 ==
LOC: ER 03:53 → ERHOLD 06:16 → OBSVTOIN 13:16 → ERHOLD 04-28 05:55 → 4TH 04-28 13:49
PROVIDERS: ADMIT Internal Medicine; ATTEND Internal Medicine
DX: I21.4 Non-ST elevation (NSTEMI) myocardial infarction (principal); E11.9 Type 2 diabetes mellitus without complications; I10 Essential (primary) hypertension; E78.5 Hyperlipidemia, unspecified; I25.10 Atherosclerotic heart disease of native coronary artery without angina pectoris; I08.3 Combined rheumatic disorders of mitral, aortic and tricuspid valves; F32.A Depression, unspecified; I25.2 Old myocardial infarction; Z86.73 Personal history of transient ischemic attack (TIA), and cerebral infarction without residual deficits; Z95.1 Presence of aortocoronary bypass graft; Z88.0 Allergy status to penicillin; Z88.5 Allergy status to narcotic agent; Z79.82 Long term (current) use of aspirin; Z79.84 Long term (current) use of oral hypoglycemic drugs; Z79.899 Other long term (current) drug therapy; Z91.030 Bee allergy status
CPT/HCPCS: 36415; 71045; 80048; 80053; 80061; 80076; 82947; 83690; 83880; 84484; 85025; 85379; 85610; 87811; 93005; 93306; 99284; G0378; J1650

== ENCOUNTER → 2023-08-29 | Emergency (ER) | payer OTHER ==
[2023-08-29 09:19] LABS: Absolute Lymphocytes (CBC) 1.5 K/uL (0.7-4.9); Hematocrit 41.8 % (39.6-49.0); Lymphocytes % 25.5 % (15.3-44.8); MCV 85.4 fL (80-100); Platelets 133 thou/uL (152-406)
[2023-08-29 09:37] LABS: Potassium 3.7 mEq/L (3.5-5.1); Troponin High Sensitivity 6.5 pg/mL (<58.9)
--- NOTE | 2023-08-29 09:46 | RAD REPORT ---
EXAM DESCRIPTION: RAD - Chest Single View - 08/29/2023 9:39 am CLINICAL HISTORY: CHEST PAIN Chest pain. COMPARISON: Chest Single View dated 04/27/2022; Chest Single View dated 02/13/2021; Chest Pa And Lat (2 Views) dated 09/26/2019; Chest Single View dated 01/01/2019 FINDINGS: Portable technique limits examination quality. The lungs are grossly clear. The heart is normal in size. No displaced fractures.Sternotomy wires pre sent. IMPRESSION: No acute intrathoracic process suspected.
--- NOTE | 2023-08-29 10:06 | ER ---
Nurse's Notes [facility] Name: Jr Jane Age: 73 yrs Sex: Male : 1950 Arrival Date: 08/29/2023 Time: 08:47 Bed 8 Private MD: Diagnosis: Chest pain, unspecified Presentation: 08/29 08:48 Chief complaint: EMS states: pt reports chest pain that began this AM. pt took 1 nitro kc6 at home with minimal relief. EMS gave another nitro and 324mg of aspirin, chest pain resolved. BGL en route 92. Coronavirus screen: At this time, the client does not indicate any symptoms associated with coronavirus-19. Ebola Screen: No symptoms or risks identified at this time. Initial Sepsis Screen: Does the patient meet any 2 criteria? No. Patient's initial sepsis screen is negative. Does the patient have a suspected source of infection? No. Patient's initial sepsis screen is negative. Risk Assessment: Do you want to hurt yourself or someone else? Patient reports no desire to harm self or others. Onset of symptoms was August 29, 2023. 08:48 Method Of Arrival: EMS: [facility] kc6 08:48 Acuity: [place] 3 kc6 Triage Assessment: 08:50 General: Appears in no apparent distress. comfortable, Behavior is calm, cooperative, kc6 appropriate for age. Pain: Denies pain. EENT: No signs and/or symptoms were reported regarding the EENT system. Neuro: Level of Consciousness is awake, alert, obeys commands, Oriented to person, place, time, situation, Appropriate for age. Cardiovascular: Reports chest pain, Heart tones S1 S2 present Capillary refill < 3 seconds Rhythm is sinus rhythm. Respiratory: Airway is patent Trachea midline Respiratory effort is even, unlabored, Respiratory pattern is regular, symmetrical, Denies shortness of breath. GI: No signs and/or symptoms were reported involving the gastrointestinal system. : No signs and/or symptoms were reported regarding the genitourinary system. Derm: No signs and/or symptoms reported regarding the dermatologic system. Skin is intact, is healthy with good turgor, Skin is pink, warm \T\ dry. Musculoskeletal: No signs and/or symptoms reported regarding the musculoskeletal system. Circulation, motion, and sensation intact. Capillary refill < 3 seconds, Range of motion: intact in all extremities. Historical: - Allergies: 08:50 Bees; kc6 08:50 Demerol; kc6 08:50 PENICILLINS; kc6 - PMHx: 08:50 Depression; Diabetes - NIDDM; Hypertension; Myocardial infarction; TIA; kc6 - PSHx: 08:50 CABG; Stented artery; kc6 - Immunization history:: Adult Immunizations up to date. - Social history:: Smoking status: Patient/guardian denies using tobacco, the patient reports quitting approximately 20 years ago. Screenin:52 [facility] ED Fall Risk Assessment (Adult) History of falling in the last 3 months, kc6 including since admission No falls in past 3 months (0 pts) Confusion or Disorientation No (0 pts) Intoxicated or Sedated No (0 pts) Impaired Gait No (0 pts) Mobility Assist Device Used No (0 pt) Altered Elimination No (0 pt) Score/Fall Risk Level 0 - 2 = Low Risk. Abuse screen: Denies threats or abuse. Denies injuries from another. Nutritional screening: No deficits noted. Tuberculosis screening: No symptoms or risk factors identified. Assessment: 08:52 Reassessment: please see triage assessment. kc6 09:34 Reassessment: Patient appears in no apparent distress at this time. No changes from kc6 previously documented assessment. Patient and/or family updated on plan of care and expected duration. Pain level reassessed. Patient is alert, oriented x 3, equal unlabored respirations, skin warm/dry/pink. 10:22 Reassessment: Patient appears in no apparent distress at this time. No changes from kc6 previously documented assessment. Patient and/or family updated on plan of care and expected duration. Pain level reassessed. Patient is alert, oriented x 3, equal unlabored respirations, skin warm/dry/pink. 11:05 Reassessment: Patient appears in no apparent distress at this time. No changes from kc6 previously documented assessment. Patient and/or family updated on plan of care and expected duration. Pain level reassessed. Patient is alert, oriented x 3, equal unlabored respirations, skin warm/dry/pink. 11:56 Reassessment: Patient appears in no apparent distress at this time. No changes from kc6 previously documented assessment. Patient and/or family updated on plan of care and expected duration. Pain level reassessed. Patient is alert, oriented x 3, equal unlabored respirations, skin warm/dry/pink. 12:56 Reassessment: Patient appears in no apparent distress at this time. No changes from kc6 previously documented assessment. Patient and/or family updated on plan of care and expected duration. Pain level reassessed. Patient is alert, oriented x 3, equal unlabored respirations, skin warm/dry/pink. Vital Signs: 08:48 BP 132 / 75; Pulse 69; Resp 17 S; Temp 98.4(O); Pulse Ox 98% on R/A; Weight 98.88 kg kc6 (R); Height 5 ft. 8 in. (R); Pain 0/10; 09:34 BP 116 / 86; Pulse 63; Resp 16 S; Pulse Ox 97% on R/A; kc6 10:22 BP 134 / 75; Pulse 67; Resp 18 S; Pulse Ox 94% on R/A; kc6 11:05 BP 119 / 69; Pulse 61; Resp 19 S; Pulse Ox 97% on R/A; kc6 13:04 BP 108 / 63; Pulse 58; Resp 18 S; Pulse Ox 97% on R/A; kc6 08:48 Body Mass Index 33.15 (98.88 kg, 172.72 cm) kc6 08:48 Pain Scale: Adult kc6 ED Course: 08:48 Patient arrived in ED. kc6 08:50 Triage completed. kc6 08:50 Arm band placed on. EKG completed in triage. Results shown to MD. kc6 08:52 EKG done, by ED staff. em1 08:52 Maintain EMS IV. Dressing intact. Good blood return noted. Site clean \T\ dry. Gauge \T\ ryan 6 site: 20G LFA. Patient maintains SpO2 saturation greater than 95% on room air. 08:52 Patient has correct armband on for positive identification. Bed in low position. Call [facility] light in reach. Side rails up X2. Client placed on continuous cardiac and pulse oximetry monitoring. NIBP monitoring applied. night monitor on. 08:53 Odette Mccarthy, CHANTELLE is Primary Nurse. kc6 08:59 Felix Fisher DO is Attending Physician. ms3 09:41 XRAY Chest (1 view) In Process Unspecified. EDMS 13:03 No provider procedures requiring assistance completed. Patient transferred, IV remains kc6 in place. Administered Medications: No medications were administered Medication: 13:04 VIS not applicable for this client. kc6 Outcome: 10:06 ER care complete, transfer ordered by ms3 13:03 Transferred by ground EMS to [facility] Transfer form completed. kc6 Note: report called to CHANTELLE Baker 13:03 Condition: good 13:03 Instructed on the need for transfer, 13:04 Patient left the ED. kc6 Signatures: Dispatcher [employer] Demetris Mackay em1 Felix Fisher, DO ms3 Odette Mccarthy, RN RN kc6
--- NOTE | 2023-08-29 10:06 | EDPHYS ---
Physician Documentation [facility] Name: Jr Jane Age: 73 yrs Sex: Male : 1950 Arrival Date: 08/29/2023 Time: 08:47 Bed 8 Private MD: ED Physician Felix Fisher HPI: 08/29 09:21 This 73 yrs old Male presents to ER via EMS with complaints of Chest Pain. ms3 09:21 . ms3 09:23 73-year-old male with past medical history of depression, diabetes, hypertension, ms3 myocardial infarction, TIA presents to the emergency department for chest pain that began at 7 AM. Patient states the pain is a 7/10 located substernally radiating to his left arm. Patient endorses diaphoresis and shortness of breath associated with this chest pain. Patient denies any alleviating or inciting factors. Historical: - Allergies: 08:50 Bees; kc6 08:50 Demerol; kc6 08:50 PENICILLINS; kc6 - PMHx: 08:50 Depression; Diabetes - NIDDM; Hypertension; Myocardial infarction; TIA; kc6 - PSHx: 08:50 CABG; Stented artery; kc6 - Immunization history:: Adult Immunizations up to date. - Social history:: Smoking status: Patient/guardian denies using tobacco, the patient reports quitting approximately 20 years ago. ROS: 09:23 Constitutional: Negative for fever, and chills. Neck: Negative for injury, pain, and ms3 swelling, 09:23 Cardiovascular: Positive for chest pain, 09:23 Respiratory: Positive for shortness of breath, 09:23 Neuro: Positive for headache, 09:23 All other systems are negative, Exam: 09:23 Constitutional: This is a well developed, well nourished patient who is awake, alert, ms3 and in no acute distress. Head/Face: Normocephalic, atraumatic. Neck: Trachea midline, no cervical lymphadenopathy. Supple, full range of motion without nuchal rigidity, or vertebral point tenderness. No Meningismus. Chest/axilla: Normal chest wall appearance and motion. Nontender with no deformity. Cardiovascular: Regular rate and rhythm with a normal S1 and S2. No gallops, murmurs, or rubs. Normal PMI, no JVD. No pulse deficits. Respiratory: Lungs have equal breath sounds bilaterally, clear to auscultation and percussion. No rales, rhonchi or wheezes noted. No increased work of breathing, no retractions or nasal flaring. Skin: Warm, dry with normal turgor. Normal color with no rashes, no lesions, and no evidence of cellulitis. MS/ Extremity: Pulses equal, no cyanosis. Neurovascular intact. Full, normal range of motion. 09:23 ECG was reviewed by the Attending Physician. Vital Signs: 08:48 BP 132 / 75; Pulse 69; Resp 17 S; Temp 98.4(O); Pulse Ox 98% on R/A; Weight 98.88 kg kc6 (R); Height 5 ft. 8 in. (R); Pain 0/10; 09:34 BP 116 / 86; Pulse 63; Resp 16 S; Pulse Ox 97% on R/A; kc6 10:22 BP 134 / 75; Pulse 67; Resp 18 S; Pulse Ox 94% on R/A; kc6 11:05 BP 119 / 69; Pulse 61; Resp 19 S; Pulse Ox 97% on R/A; kc6 13:04 BP 108 / 63; Pulse 58; Resp 18 S; Pulse Ox 97% on R/A; kc6 08:48 Body Mass Index 33.15 (98.88 kg, 172.72 cm) 6 08:48 Pain Scale: Adult kc6 MDM: 09:17 Patient medically screened. ms3 09:23 Differential diagnosis: abnormal EKG, acute myocardial infarction, coronary artery ms3 disease chest wall pain, pneumonia, pneumothorax, stable angina, unstable angina. The patient was not given aspirin in the Emergency Department. Administered by EMS. Independent interpretation of the following test(s) in the Emergency Department EKG: See my EKG interpretation above Rhythm Strip Interpretation Rate: 70BPM Rhythm: regular. 09:56 HEART Score: History: Moderately Suspicious (1), ECG: Non specific repolarization ms3 disturbance / LBTB / PM (1), Age: > or = 65 years (2), Risk Factors: > or = 3 Risk factors for atherosclerotic disease (2), [Hypercholesterolemia] [Hypertension] [DM] Troponin: < or = 1 x Normal Limit (0), Total Score = 6. 10:06 Data reviewed: vital signs, nurses notes, lab test result(s), EKG, radiologic studies, ms3 and as a result, I will transfer patient at his request to the [place]. Consideration of Admission/Observation Will transfer patient to [facility]. Independent interpretation of the following test(s) in the Emergency Department X-Ray: My interpretation is CXR image reviewed by me shows sternotomy wires. No PNA or PTX. Historians other than the Patient: EMS: [facility]. Counseling: I had a detailed discussion with the patient and/or guardian regarding the historical points, exam findings, and any diagnostic results supporting the discharge/admit diagnosis, lab results, radiology results, the need to transfer to another facility, patient request. Special discussion:. 08/29 09:06 Order name: Basic Metabolic Panel; Complete Time: 09:55 [facility] 08/29 09:06 Order name: CBC with Diff; Complete Time: 09:37 [facility] 08/29 09:06 Order name: Troponin HS; Complete Time: :55 [facility] 08/29 09:06 Order name: XRAY Chest (1 view); Complete Time: :55 [facility] 08/29 09:06 Order name: EKG; Complete Time: 09:07 [facility] 08/29 09:06 Order name: Cardiac monitoring; Complete Time: 09:06 [facility] 08/29 09:06 Order name: EKG - Nurse/Tech; Complete Time: 09:06 [facility] 08/29 09:06 Order name: IV Saline Lock; Complete Time: 09:06 [facility] 08/29 09:06 Order name: Labs collected and sent; Complete Time: 09:06 [facility] 08/29 09:06 Order name: O2 Per Protocol; Complete Time: 09:06 [facility] 08/29 09:06 Order name: O2 Sat Monitoring; Complete Time: 09:06 [facility] EC:23 Rate is 66 beats/min. Rhythm is regular. QRS [place] is Normal. MA interval is normal. QRS ms3 interval is normal. T waves are Flattened. Clinical impression: NSR w/ Non-specific ST/T Changes. Interpreted by me. Reviewed by me. Administered Medications: No medications were administered Disposition Summary: 08/29/23 10:06 Transfer Ordered Notes: Transfer Location: [place] ms3 Condition: Stable ms3 Problem: new ms3 Symptoms: are unchanged ms3 Reason: Patient request(08/29/23 10:06) ms3 Accepting Physician: (08/29/23 13:04) kc6 Diagnosis - Chest pain, unspecified ms3 Forms: - Medication Reconciliation Form ms3 - SBAR form ms3 Signatures: Dispatcher [employer] EDFelix Dumont, DO ms3 Odette Mccarthy RN RN kc6 Corrections: (The following items were deleted from the chart) 10:06 10:06 ms3 ms3 10:06 10:06 Higher level of care ms3 ms3 13:04 10:06 ms3 kc6
[2023-08-29 13:18] VITALS: TEMP 98.4; O2SAT 97
[2023-08-29 13:23] VITALS: BP 108/63
--- NOTE | 2023-08-31 15:15 | EKG ---
Test Date: 2023-08-29 Test Time: 08:47:43 Felt Tipping Machine Tender: MORGAN MEASUREMENT RESULTS: Intervals: Rate: 66 [place]: 154 QRSD: 84 QT: 424 QTc: 444 [place]: P: 49 NJ: 154 QRS: 27 T: 61 INTERPRETIVE STATEMENTS: Sinus rhythm with premature atrial complexes Nonspecific T wave abnormality Abnormal ECG Compared to ECG 04/27/2022 04:15:42 Atrial premature complex(es) now present Possible ischemia no longer present T-wave abnormality still present Electronically Signed On 08-31-23 15:10:19 DREDGE PUMPER by Mauro Pinzon
== END ==
LOC: ER 08:47
DX: R07.9 Chest pain, unspecified (principal); R51.9 Headache, unspecified; R06.02 Shortness of breath; E11.9 Type 2 diabetes mellitus without complications; I10 Essential (primary) hypertension; Z95.1 Presence of aortocoronary bypass graft; I25.2 Old myocardial infarction; Z88.0 Allergy status to penicillin; Z88.5 Allergy status to narcotic agent; Z91.030 Bee allergy status
CPT/HCPCS: 36415; 71045; 80048; 84484; 85025; 93005; 99285

== ENCOUNTER → 2023-10-01 | Emergency (ER) | payer OTHER ==
[~2023-10-01] MED LIST: NA CHLORIDE 0.9% 1,000 ML ONE
[2023-10-01 17:54] LABS: Absolute Lymphocytes (CBC) 1.4 K/uL (0.7-4.9); Hematocrit 40.9 % (39.6-49.0); Lymphocytes % 20.5 % (15.3-44.8); MCV 84.3 fL (80-100); MPV 8.6 fL (7.6-11.3); Platelets 175 thou/uL (152-406); RBC Red Blood Cell Count 4.85 M/uL (4.33-5.43)
--- NOTE | 2023-10-01 17:57 | RAD REPORT ---
[facility] CLINICAL HISTORY: PAIN COMPARISON: Chest Single View dated 08/29/2023; Chest Single View dated 04/27/2022; Chest Single View dated 02/13/2021; Chest Pa And Lat (2 Views) dated 09/26/2019 TECHNIQUE: Portable AP view of the chest. FINDINGS: The lungs are clear. No pneumothorax or effusion. The cardiomediastinal contours are unch anged with sequelae of median sternotomy. IMPRESSION: No acute cardiopulmonary process.
--- NOTE | 2023-10-01 18:02 | RAD REPORT ---
EXAM DESCRIPTION: CT - Head Brain Wo Cont - 10/01/2023 5:30 pm CLINICAL HISTORY: Dizziness;Headache COMPARISON: Head Brain Wo Cont dated 01/01/2019; Head Brain Wo Cont dated 09/24/2018 TECHNIQUE: Noncontrast head CT images were obtained without IV contrast. Multiplanar reformats were generated and reviewed. All CT scans are performed using dose optimization technique as appropriate and may include automated exposure control or mA/KV adjustment according to patient size. FINDINGS: No intracranial hemorrhage, mass, or edema. Midline structures are unremarkable. Mild diffuse parenchymal volume loss. Stable ventricular caliber. Stable periventricular and deep whi te matter mild hypodensity, nonspecific, most suggestive of chronic small vessel ischemic changes. Contreras-white matter differentiation is preserved, without evidence of acute infarct. No abnormal extra- axial fluid collections. Mastoid air cells and visualized portions of the paranasal sinuses are clear. No acute bony findings. IMPRESSION: No evidence of an acute intracranial process.
[2023-10-01 18:03] LABS: Protime INR 1.11
[2023-10-01 18:43] LABS: ALT/SGPT 33 U/L (16-61); AST/SGOT 25 U/L (15-37); Albumin 3.6 g/dL (3.4-5.0); Alkaline Phosphatase 61 U/L (45-117); BUN Blood Urea Nitrogen 18 mg/dL (7-18); Bicarbonate 23 mEq/L (21-32); Bilirubin Direct < 0.1 mg/dL (0-0.2); Bilirubin Indirect, Calculated ND mg/dL (0.2-0.8); Bilirubin Total 0.4 mg/dL (0.2-1.0); Glomerular Filtration Rate 49 ml/min (=/>90); Glucose Level 157 mg/dL (74-106); Magnesium 1.8 mg/dL (1.6-2.4); Potassium 4.1 mEq/L (3.5-5.1); Protein, Total 7.5 g/dL (6.4-8.2); Sodium Level 137 mEq/L (136-145); Troponin High Sensitivity 4.3 pg/mL (<58.9)
[2023-10-01 20:50] LABS: Specific Gravity 1.025 (1.005-1.030); Urine Bacteria None Seen /HPF (<20); Urine Bilirubin NEGATIVE (Negative); Urine Blood Negative (Negative); Urine Clarity Clear (Clear); Urine Color Light-Yellow (Yellow); Urine Crystals Unidentified Few /HPF (None Seen); Urine Glucose 4+ (Over) (Negative); Urine Protein NEGATIVE (Negative); Urine RBC <5 /HPF (None Seen); Urine Urobilinogen Normal (Normal); Urine pH 5.5 (5.0-7.0)
--- NOTE | 2023-10-01 20:56 | ER ---
Nurse's Notes [facility] Name: Jr Jane Age: 73 yrs Sex: Male : 1950 Arrival Date: 10/01/2023 Time: 16:53 Bed 6 Private MD: Diagnosis: Dizziness and giddiness Presentation: 10/01 17:02 Chief complaint: Patient states: Dizziness X 1 week. Pt reports taking new medication ld1 for headaches - Gabapentin 100mg - 4 times daily. Pt reports taking blood pressure while feeling dizzy and pressure was 99/61. Coronavirus screen: At this time, the client does not indicate any symptoms associated with coronavirus-19. Ebola Screen: No symptoms or risks identified at this time. 17:02 Method Of Arrival: Ambulatory ld1 17:03 Initial Sepsis Screen: Does the patient meet any 2 criteria? No. Patient's initial ld1 sepsis screen is negative. Does the patient have a suspected source of infection? No. Patient's initial sepsis screen is negative. Risk Assessment: Do you want to hurt yourself or someone else? Patient reports no desire to harm self or others. Onset of symptoms was October 01, 2023. 17:03 Acuity: [place] 3 ld1 Triage Assessment: 17:03 General: Appears in no apparent distress. comfortable, Behavior is calm, cooperative, ld1 appropriate for age. Pain: Denies pain. EENT: No signs and/or symptoms were reported regarding the EENT system. Neuro: Level of Consciousness is awake, alert, obeys commands, Oriented to person, place, time, situation, Reports dizziness. Cardiovascular: Capillary refill < 3 seconds Patient's skin is warm and dry. Respiratory: Airway is patent Respiratory effort is even, unlabored. GI: Abdomen is round non-distended. : No signs and/or symptoms were reported regarding the genitourinary system. Derm: No signs and/or symptoms reported regarding the dermatologic system. Musculoskeletal: No signs and/or symptoms reported regarding the musculoskeletal system. Historical: - Allergies: 16:59 Bees; ld1 16:59 Demerol; ld1 16:59 PENICILLINS; ld1 - PMHx: 16:59 Depression; Hypertension; Myocardial infarction; Diabetes - NIDDM; TIA; ld1 - PSHx: 16:59 CABG; Stented artery; ld1 - Immunization history:: Adult Immunizations up to date. - Social history:: Smoking status: Patient denies any tobacco usage or history of. Patient/guardian denies using alcohol. Screenin:00 [facility] ED Fall Risk Assessment (Adult) Score/Fall Risk Level 0 - 2 = Low Risk nj1 Oriented to surroundings, Maintained a safe environment, Hourly rounding (assess needs \T\ fall precautionary measures) done. 19:00 Abuse screen: Denies threats or abuse. Denies injuries from another. Nutritional nj1 screening: No deficits noted. Tuberculosis screening: No symptoms or risk factors identified. Assessment: 19:00 Reassessment: Patient appears in no apparent distress at this time. Patient and/or nj1 family updated on plan of care and expected duration. Pain level reassessed. Patient is alert, oriented x 3, equal unlabored respirations, skin warm/dry/pink. Pain: Complains of pain in head Pain currently is 8 out of 10 on a pain scale. Quality of pain is described as aching. 20:50 Reassessment: Patient appears in no apparent distress at this time. Patient is alert, bp oriented x 3, equal unlabored respirations, skin warm/dry/pink. Vital Signs: 17:03 Resp 18; Temp 97.9(TE); Pulse Ox 100% on R/A; Weight 93.89 kg; Height 5 ft. 8 in. ; ld1 Pain 0/10; 17:03 BP 121 / 69; Pulse 74; ld1 19:00 BP 110 / 65 LA Supine (auto/reg); Pulse 60; nj1 19:00 BP 115 / 64 LA Sitting (auto/reg); Pulse 58; nj1 19:00 BP 112 / 67 LA Standing (auto/reg); Pulse 62; nj1 20:50 BP 130 / 71; Pulse 57; Resp 16; Pulse Ox 96% ; bp 17:03 Body Mass Index 31.47 (93.89 kg, 172.72 cm) ld1 17:03 Pain Scale: Adult ld1 ED Course: 16:54 Patient arrived in ED. rg4 17:03 Triage completed. ld1 17:03 Arm band placed on right wrist. ld1 17:05 [facility] Mccloud F[facility]-C [facility] kb 17:05 Manolo Maldonado MD is Attending Physician. kb 17:31 CT Head Brain wo Cont In Process Unspecified. EDMS 17:36 Chest Single View XRAY In Process Unspecified. EDMS 17:45 Initial lab(s) drawn, by me, sent to lab. Inserted saline lock: 20 gauge in left ap3 forearm, using aseptic technique. Blood collected. 17:45 Basic Metabolic Panel Sent. ap3 17:45 CBC with Diff Sent. ap3 17:45 Hepatic Function Sent. ap3 17:45 Magnesium Sent. ap3 17:45 Protime (+inr) Sent. ap3 17:45 Ptt, Activated Sent. ap3 17:45 Troponin High Sensitivity Sent. ap3 18:35 Katerin Pena, RN is Primary Nurse. nj1 19:00 Patient has correct armband on for positive identification. Bed in low position. Call nj1 light in reach. Adult w/ patient. 19:00 Provided Education on: call light, fall precautions. nj1 20:58 No provider procedures requiring assistance completed. IV discontinued, intact, bp bleeding controlled, No redness/swelling at site. Pressure dressing applied. Administered Medications: 20:21 Drug: NS 0.9% IV 1000 ml IV at 1000 ml once Route: IV; Rate: 1000 ml; Site: left jw7 antecubital; 20:59 Follow up: IV Status: Completed infusion; IV Intake: 1000ml bp Medication: 20:59 VIS not applicable for this client. bp Intake: 20:59 IV: 1000ml; Total: 1000ml. bp Outcome: 20:56 Discharge ordered by MD. kb 20:59 Discharged to home ambulatory, with family, bp 20:59 Condition: stable 20:59 Discharge instructions given to patient, Instructed on discharge instructions, follow up and referral plans. Demonstrated understanding of instructions, follow-up care, 21:00 Patient left the ED. bp Signatures: Dispatcher [employer] EDMS Tyra Mccloud, COLD TYPE ARTIST-C COLD TYPE ARTIST-Ckb Kelsie Monroe rg4 Skinny Small, RN RN bp Kaela Erickson, RN RN ap3 Eleni Fisher, RN RN ld1 Neena Waldron, RN RN jw7 Katerin Pena, RN RN nj1 Corrections: (The following items were deleted from the chart) 17:05 17:02 Chief complaint: Patient states: Dizziness X 1 week. ld1 ld1 17:06 17:03 BP 121 / 69; Pulse 117bpm; ld1 ld1
--- NOTE | 2023-10-01 20:56 | EDPHYS ---
Physician Documentation [facility] Name: Jr Jane Age: 73 yrs Sex: Male : 1950 Arrival Date: 10/01/2023 Time: 16:53 Bed 6 Private MD: ED Physician Manolo Maldonado HPI: 10/01 17:31 This 73 yrs old Male presents to ER via Ambulatory with complaints of High kb Blood Pressure, Dizziness, Weakness. 17:31 Patient is a 73-year-old male who presents with a headache and dizziness that started 1 kb week ago. States he had a dizzy spell today that caused him to fall to his knees, checked his blood pressure and it was 90/60. States he started gabapentin 1 week ago for headaches and takes it 4 times a day. Denies chest pain, palpitations, shortness of breath. [facility] and [facility] for . States he was told he has a clot in his brain and an aneurysm so is going for the MRI to further evaluate. States dizziness is worse upon standing, walking.. Historical: - Allergies: 16:59 Bees; ld1 16:59 Demerol; ld1 16:59 PENICILLINS; ld1 - PMHx: 16:59 Depression; Hypertension; Myocardial infarction; Diabetes - NIDDM; TIA; ld1 - PSHx: 16:59 CABG; Stented artery; ld1 - Immunization history:: Adult Immunizations up to date. - Social history:: Smoking status: Patient denies any tobacco usage or history of. Patient/guardian denies using alcohol. ROS: 17:30 Constitutional: Negative for fever, chills, and weight loss, kb 17:30 Neuro: Positive for dizziness, headache, 17:30 All other systems are negative, Exam: 17:30 Constitutional: This is a well developed, well nourished patient who is awake, alert, kb and in no acute distress. Head/Face: Normocephalic, atraumatic. Eyes: Pupils equal round and reactive to light, extra-ocular motions intact. Lids and lashes normal. Conjunctiva and sclera are non-icteric and not injected. Cornea within normal limits. Periorbital areas with no swelling, redness, or edema. ENT: Moist Mucous membranes Cardiovascular: Regular rate Respiratory: Respirations even and unlabored. No increased work of breathing. Talking in full sentences Abdomen/GI: Soft, non-tender. No distention Skin: Warm, dry with normal turgor. Normal color. MS/ Extremity: Pulses equal, no cyanosis. Neurovascular intact. Full, normal range of motion. Neuro: Awake and alert, GCS 15, oriented to person, place, time, and situation. Moves all extremities. Normal gait. Vital Signs: 17:03 Resp 18; Temp 97.9(TE); Pulse Ox 100% on R/A; Weight 93.89 kg; Height 5 ft. 8 in. ; ld1 Pain 0/10; 17:03 BP 121 / 69; Pulse 74; ld1 19:00 BP 110 / 65 LA Supine (auto/reg); Pulse 60; nj1 19:00 BP 115 / 64 LA Sitting (auto/reg); Pulse 58; nj1 19:00 BP 112 / 67 LA Standing (auto/reg); Pulse 62; nj1 20:50 BP 130 / 71; Pulse 57; Resp 16; Pulse Ox 96% ; bp 17:03 Body Mass Index 31.47 (93.89 kg, 172.72 cm) ld1 17:03 Pain Scale: Adult ld1 MDM: 17:05 Patient medically screened. kb 17:32 Differential diagnosis: cardiac arrhythmia, CVA, generalized weakness, hypovolemia, kb idiopathic dizziness, near-syncope, vertigo. Data reviewed: vital signs, nurses notes. 20:08 Counseling: I had a detailed discussion with the patient and/or guardian regarding the kb historical points, exam findings, and any diagnostic results supporting the discharge/admit diagnosis, lab results, radiology results, the need for outpatient follow up, a family practitioner, to return to the emergency department if symptoms worsen or persist or if there are any questions or concerns that arise at home. 10/01 17:10 Order name: Basic Metabolic Panel; Complete Time: 18:44 ld1 10/01 17:10 Order name: CBC with Diff; Complete Time: 18:06 ld1 10/01 17:10 Order name: Hepatic Function; Complete Time: 18:44 ld1 10/01 17:10 Order name: Magnesium; Complete Time: 18:44 1 10/01 17:10 Order name: Protime (+inr); Complete Time: 18:06 ld1 22 17:10 Order name: Ptt, Activated; Complete Time: 18:06 10/01 17:10 Order name: Troponin High Sensitivity; Complete Time: 18:44 10/01 20:08 Order name: Urinalysis w/ reflexes; Complete Time: 20:53 10/01 17:10 Order name: CT Head Brain wo Cont; Complete Time: 18:06 10/01 17:10 Order name: Chest Single View XRAY; Complete Time: 18:06 10/01 17:10 Order name: EKG; Complete Time: 17:11 10/01 17:10 Order name: Cardiac monitoring; Complete Time: 19:38 10/01 17:10 Order name: EKG - Nurse/Tech; Complete Time: 19:43 10/01 17:10 Order name: IV Saline Lock; Complete Time: 17:44 10/01 17:10 Order name: Labs collected and sent; Complete Time: 17:44 10/01 17:10 Order name: NPO; Complete Time: 17:44 10/01 17:10 Order name: O2 Per Protocol; Complete Time: 19:08 10/01 17:10 Order name: O2 Sat Monitoring; Complete Time: 19:08 10/01 17:10 Order name: Orthostatics; Complete Time: 19:08 ld Administered Medications: 20:21 Drug: NS 0.9% IV 1000 ml IV at 1000 ml once Route: IV; Rate: 1000 ml; Site: left jw7 antecubital; 20:59 Follow up: IV Status: Completed infusion; IV Intake: 1000ml bp Disposition Summary: 10/01/23 20:56 Discharge Ordered Notes: Location: Home kb Condition: Stable kb Diagnosis - Dizziness and giddiness kb Followup: kb - With: Emergency Department - When: As needed - Reason: Worsening of condition Followup: kb - With: Private Physician - When: 2 - 3 days - Reason: Recheck today's complaints, Continuance of care, Re-evaluation by your physician Discharge Instructions: - Discharge Summary Sheet kb - Dizziness, [id number] kb Forms: - Medication Reconciliation Form kb - Thank You Letter kb - Antibiotic Education kb - Prescription Opioid Use kb - Patient Portal Instructions kb - Leadership Thank You Letter kb Signatures: Dispatcher [employer] Tyra Haskins, SOCIAL SERVICES COORDINATOR-C SOCIAL SERVICES COORDINATOR-Ckb Eleni Fisher, RN RN ld1 Neena Waldron, RN RN jw7 Skinny Small RN bp
[2023-10-02 02:47] VITALS: BP 130/71; TEMP 97.9; O2SAT 96
--- NOTE | 2023-10-02 17:49 | EKG ---
Test Date: 2023-10-01 Test Time: 19:37:44 Electric Motorman: RACHID MEASUREMENT RESULTS: Intervals: Rate: 57 [place]: 162 QRSD: 90 QT: 434 QTc: 422 [place]: P: 42 [place]: 162 QRS: 17 T: 24 INTERPRETIVE STATEMENTS: Sinus bradycardia Otherwise normal ECG Compared to ECG 08/29/2023 08:47:43 Sinus rhythm no longer present Atrial premature complex(es) no longer present T-wave abnormality no longer present Electronically Signed On 10-02-23 17:48:29 PYROTECHNIST by Mauro Pinzon
== END ==
LOC: ER 16:53
DX: R42 Dizziness and giddiness (principal); I10 Essential (primary) hypertension; E11.9 Type 2 diabetes mellitus without complications; Z95.1 Presence of aortocoronary bypass graft; Z88.0 Allergy status to penicillin; Z88.5 Allergy status to narcotic agent; Z91.030 Bee allergy status
CPT/HCPCS: 93005; 85025; 81001; 80048; 36415; 83735; 85610; 80076; 85730; 84484; 70450; 71045; 96360; 99284; J7030

== ENCOUNTER 2024-09-22 11:14 | Emergency (ER) | payer OTHER ==
[2024-09-22] MEDS ORDERED: ASPIRIN 81 MG CHEWABLE TABLET ONE (11:57)
[2024-09-22 12:05] LABS: Absolute Lymphocytes (CBC) 1.3 K/uL (0.7-4.9); Absolute Monocytes 0.3 K/uL (0.1-1.3); Basophils % 0.7 % (0-1.3); Eosinophils % 17.4 % (0-4.4); Hematocrit 40.2 % (39.6-49.0); Hemoglobin 13.6 g/dL (13.6-17.9); Lymphocytes % 23.4 % (15.3-44.8); MCH 29.1 pg (27.0-35.0); MCHC 33.7 g/dL (32.0-36.0); MCV 86.4 fL (80-100); MPV 9.1 fL (7.6-11.3); Monocytes % 4.6 % (3.3-12.3); Neutrophils % 53.9 % (41.7-73.7); Nucleated Red Blood Cells % 0.1 % (0-0); Platelets 159 thou/uL (152-406); RBC Red Blood Cell Count 4.66 M/uL (4.33-5.43); Red Cell Distribution Width 14.2 % (12.1-15.2)
[2024-09-22 12:25] LABS: Anion Gap 8.6 mEq/L (5.0-15.0); Potassium 3.6 mEq/L (3.5-5.1); Troponin High Sensitivity 5.8 pg/mL (<58.9)
--- NOTE | 2024-09-22 12:30 | RAD REPORT ---
Procedure: Chest Single View HISTORY: Chest pain COMPARISON: 2023 FINDINGS: The lungs appear clear of acute infiltrate. No significant pleural effusion noted. The heart is mildly to moderately enlarged. Post surgical changes involve the chest. IMPRESSION: No acute abnormality is displayed.
--- NOTE | 2024-09-22 13:03 | EDPHYS ---
Physician Documentation [facility] Name: Jr Jane Age: 74 yrs Sex: Male : 1950 Arrival Date: 09/22/2024 Time: 11:14 Bed 14 Private MD: ED Physician Tyler Seymour HPI: 09/22 12:07 This 74 yrs old Male presents to ER via Wheelchair with complaints of Chest rn Pain. 12:07 The patient or guardian reports chest pain that is located primarily in the substernal rn area. Onset: 10 day(s) ago. The pain radiates to the left arm. Associated signs and symptoms: Pertinent positives: shortness of breath, Pertinent negatives: abdominal pain, cough, diaphoresis. The chest pain is described as a heaviness, a pressure. Duration: The patient or guardian reports multiple episodes, that are intermittent. Modifying factors: The symptoms are alleviated by nothing. the symptoms are aggravated by exertion. Severity of pain: At its worst the pain was moderate in the emergency department the pain has improved. The patient has experienced similar episodes in the past. Patient has 7 stents, also CABG in 2010. States last stent years ago. Now having increased chest pain with exertion, pressure, radiates to the left arm over the last 10 days. Seen at [place] clinic today and sent to the emergency room for evaluation.. Historical: - Allergies: 11:26 Demerol; iw 11:26 PENICILLINS; iw 11:26 Bees; iw - PMHx: 11:26 Depression; Diabetes - NIDDM; Hypertension; Myocardial infarction; TIA; iw - PSHx: 11:26 CABG; Stented artery; iw - Immunization history:: Adult Immunizations unknown. - Infectious Disease History:: Denies. - Family history:: not pertinent. - Social history:: Smoking status: Patient denies any tobacco usage or history of. - Hospitalizations: : No recent hospitalization is reported. ROS: 12:07 Constitutional: Negative for fever, chills, and weight loss, Neck: Negative for injury, rn pain, and swelling, Cardiovascular: Positive for chest pain with exertion Respiratory: Positive for shortness of breath with exertion Abdomen/GI: Negative for abdominal pain, nausea, vomiting, diarrhea, and constipation, Back: Negative for injury and pain, MS/Extremity: Negative for injury and deformity, Neuro: Negative for headache, weakness, numbness, tingling, and seizure, Exam: 12:07 Constitutional: This is a well developed, well nourished patient who is awake, alert, rn and in no acute distress. Cardiovascular: Bradycardic, regular rhythm. No pulse deficits. Respiratory: Speaking full sentences, unlabored. No increased work of breathing, no retractions or nasal flaring. Abdomen/GI: Soft, nontender MS/ Extremity: Pulses equal, no cyanosis. Equal circumference Neuro: Awake and alert, GCS 15 13:31 ECG was reviewed by the Attending Physician. rn Vital Signs: 11:25 Resp 18; Temp 97.6; Pulse Ox 98% on R/A; Pain 6/10; iw 11:27 BP 116 / 64; Weight 93.89 kg; Height 5 ft. 8 in. ; iw 12:00 BP 105 / 63; Pulse 56; Resp 19; Pulse Ox 98% ; iw 12:30 BP 110 / 61; Pulse 56; Resp 18; Pulse Ox 98% ; iw 13:00 BP 109 / 62; Pulse 55; Resp 14; Pulse Ox 98% on R/A; iw 13:30 BP 108 / 60; Pulse 52; Resp 20; Pulse Ox 99% on R/A; iw 14:00 BP 117 / 72; Pulse 55; Resp 16; Pulse Ox 97% on R/A; iw 14:30 BP 115 / 54; Pulse 50; Resp 18; Pulse Ox 98% on R/A; db 11:27 Body Mass Index 31.47 (93.89 kg, 172.72 cm) iw 11:25 Pain Scale: Adult iw MDM: 11:21 Medical Screening Exam initiated rn 13:00 Differential diagnosis: acute myocardial infarction, acute pericarditis, coronary rn artery disease stable angina, unstable angina. HEART Score: History: Highly Suspicious (2), ECG: Normal (0), Age: > or = 65 years (2), Risk Factors: > or = 3 Risk factors for atherosclerotic disease (2), Troponin: < or = 1 x Normal Limit (0), Total Score = 6. The patient was given aspirin in the Emergency Department. Data reviewed: vital signs, nurses notes, lab test result(s), EKG, radiologic studies, plain films, and as a result, I will admit patient. Consideration of Admission/Observation Patient was admitted/placed on observation. Escalation of care including admission/observation considered. Counseling: I had a detailed discussion with the patient and/or guardian regarding the historical points, exam findings, and any diagnostic results supporting the discharge/admit diagnosis, lab results, radiology results, the need for further work-up and treatment in the hospital. Special discussion:. ED course: Patient with story is consistent and concerning for unstable angina. [facility] transfer to [place] as [facility]. Will initiate transfer to [place]. If they are unable to take patient will admit here for cardiac workup.. 09/22 11:28 Order name: Basic Metabolic Panel; Complete Time: 12:38 rn 09/22 11:28 Order name: CBC with Diff; Complete Time: 13:23 rn 09/22 11:28 Order name: NT PRO-BNP; Complete Time: 12:38 rn 09/22 11:28 Order name: Troponin HS; Complete Time: 12:38 rn 09/22 12:17 Order name: Manual Differential; Complete Time: 13:23 EDMS 09/22 11:28 Order name: XRAY Chest (1 view); Complete Time: 12:38 rn 09/22 11:28 Order name: EKG; Complete Time: 11:29 rn 09/22 11:28 Order name: Cardiac monitoring; Complete Time: 12:00 rn 09/22 11:28 Order name: EKG - Nurse/Tech; Complete Time: 12:00 rn 09/22 11:28 Order name: IV Saline Lock; Complete Time: 12:00 rn 09/22 11:28 Order name: Labs collected and sent; Complete Time: 12:00 rn 09/22 11:28 Order name: O2 Per Protocol; Complete Time: 12:00 rn 09/22 11:28 Order name: O2 Sat Monitoring; Complete Time: 12:00 rn EC:31 Rate is 58 beats/min. Rhythm is regular. QRS [place] is Normal. [place] interval is normal. QRS rn interval is normal. QT interval is normal. No Q waves. T waves are Normal. No ST changes noted. Clinical impression: Sinus bradycardia. Interpreted by me. Reviewed by me. Administered Medications: 11:59 Drug: Aspirin PO Chewable Tablet 324 mg PO once; 81 mg tablets x 4 Route: PO; iw 13:00 Follow up: Response: No adverse reaction db Disposition Summary: 09/22/24 13:03 Transfer Ordered Notes: Transfer Location: [facility] rn Reason: Higher level of care rn Condition: Stable rn Problem: new rn Symptoms: have improved rn Accepting Physician: (09/22/24 15:06) db Diagnosis - Chest pain, unspecified rn - Unstable angina rn Forms: - Medication Reconciliation Form rn - SBAR form rn Signatures: Dispatcher [employer] EDRegine Allred RN RN iw Nieto, Roman, MD MD rn Benton, Danielle, RN RN db Corrections: (The following items were deleted from the chart) 11: 11:28 BASIC METABOLIC PANEL+C.LAB.BRZ ordered. EDMS EDMS 11 11:28 CBC+H.LAB.BRZ ordered. EDMS EDMS 11 11:28 PROBNP+C.LAB.BRZ ordered. EDMS EDMS 11 11:28 Troponin High Sensitivity+C.LAB.BRZ ordered. EDMS EDMS 15:06 13:03 Dr. allen db
--- NOTE | 2024-09-22 13:03 | ER ---
Nurse's Notes [facility] Name: Jr Jane Age: 74 yrs Sex: Male : 1950 Arrival Date: 09/22/2024 Time: 11:14 Bed 14 Private MD: Diagnosis: Chest pain, unspecified;Unstable angina Presentation: 09/22 11:25 Chief complaint: Patient states: left sided chest pain X 10 days, radiates to left arm. iw Coronavirus screen: At this time, the client does not indicate any symptoms associated with coronavirus-19. Ebola Screen: No symptoms or risks identified at this time. Initial Sepsis Screen: Does the patient meet any 2 criteria? No. Patient's initial sepsis screen is negative. Does the patient have a suspected source of infection? No. Patient's initial sepsis screen is negative. Risk Assessment: Do you want to hurt yourself or someone else? Patient reports no desire to harm self or others. Onset of symptoms was September 12, 2024. 11:25 Method Of Arrival: Wheelchair iw 11:25 Acuity: BALBINA 3 iw Historical: - Allergies: 11:26 Demerol; iw 11:26 PENICILLINS; iw 11:26 Bees; iw - PMHx: 11:26 Depression; Diabetes - NIDDM; Hypertension; Myocardial infarction; TIA; iw - PSHx: 11:26 CABG; Stented artery; iw - Immunization history:: Adult Immunizations unknown. - Infectious Disease History:: Denies. - Family history:: not pertinent. - Social history:: Smoking status: Patient denies any tobacco usage or history of. - Hospitalizations: : No recent hospitalization is reported. Screenin:03 [facility] ED Fall Risk Assessment (Adult) History of falling in the last 3 months, iw including since admission No falls in past 3 months (0 pts) Confusion or Disorientation No (0 pts) Intoxicated or Sedated No (0 pts) Impaired Gait No (0 pts) Mobility Assist Device Used No (0 pt) Altered Elimination No (0 pt) Score/Fall Risk Level 0 - 2 = Low Risk Oriented to surroundings, Maintained a safe environment. Abuse screen: Denies threats or abuse. Denies injuries from another. Nutritional screening: No deficits noted. Tuberculosis screening: No symptoms or risk factors identified. Assessment: 12:00 Reassessment: Patient appears in no apparent distress at this time. Patient and/or iw family updated on plan of care and expected duration. Pain level reassessed. Patient is alert, oriented x 3, equal unlabored respirations, skin warm/dry/pink. RADIOLOGY AT PATIENT BEDSIDE. General: Appears in no apparent distress. comfortable, Behavior is calm, cooperative. Pain: Complains of pain in chest Pain does not radiate. Pain began 1 WEEK. Neuro: Level of Consciousness is awake, alert, obeys commands, Oriented to person, place, time, situation. Cardiovascular: Reports chest pain. 13:00 Reassessment: Patient appears in no apparent distress at this time. Patient and/or iw family updated on plan of care and expected duration. Pain level reassessed. Patient is alert, oriented x 3, equal unlabored respirations, skin warm/dry/pink. 13:37 Reassessment: ATTEMPTED TO CALL REPORT TO [place] NO ANSWER. iw 13:50 Reassessment: CALLED [facility] ER NUMBER NO ANSWER. iw 14:05 Reassessment: CALLED [facility] ER NO ANSWER. CALLED [facility] CALL C[facility] TO NOTIFY.iw 14:06 Reassessment: Patient appears in no apparent distress at this time. Patient and/or iw family updated on plan of care and expected duration. Pain level reassessed. Patient is alert, oriented x 3, equal unlabored respirations, skin warm/dry/pink. 14:11 Reassessment: CALLED [facility] ER, NO ANSWER AND THEN TRANSFER CENTER AGAIN FOR iw PATIENT REPORT DUE TO PLACED ON HOLD, TRANSFERRED THEN PHONE DISCONNECTED. 14:19 Reassessment: [facility] ATTEMPTING TO GIVE [facility] REPORT. iw 14:25 Reassessment: REPORT GIVEN TO TIFFANY BISWAS AT [facility] ER. iw 15:00 Reassessment: Patient appears in no apparent distress at this time. Patient and/or db family updated on plan of care and expected duration. Pain level reassessed. Patient is alert, oriented x 3, equal unlabored respirations, skin warm/dry/pink. EMS ARRIVAL FOR PATIENT TRANSPORT TO [place]. Vital Signs: 11:25 Resp 18; Temp 97.6; Pulse Ox 98% on R/A; Pain 6/10; iw 11:27 BP 116 / 64; Weight 93.89 kg; Height 5 ft. 8 in. ; iw 12:00 BP 105 / 63; Pulse 56; Resp 19; Pulse Ox 98% ; iw 12:30 BP 110 / 61; Pulse 56; Resp 18; Pulse Ox 98% ; iw 13:00 BP 109 / 62; Pulse 55; Resp 14; Pulse Ox 98% on R/A; iw 13:30 BP 108 / 60; Pulse 52; Resp 20; Pulse Ox 99% on R/A; iw 14:00 BP 117 / 72; Pulse 55; Resp 16; Pulse Ox 97% on R/A; iw 14:30 BP 115 / 54; Pulse 50; Resp 18; Pulse Ox 98% on R/A; db 11:27 Body Mass Index 31.47 (93.89 kg, 172.72 cm) iw 11:25 Pain Scale: Adult iw ED Course: 11:20 Patient arrived in ED. sj2 11:21 Tyler Seymour MD is Attending Physician. rn 11:26 Triage completed. iw 11:26 Regine Rocha, TIFFANY is Primary Nurse. iw 11:45 Missed attempt(s): 20 gauge in right antecubital area. Bleeding controlled, band aid iw applied, catheter tip intact. 11:52 Initial lab(s) drawn, by me, sent to lab. EKG done. Inserted saline lock: 22 gauge in iw right forearm, using aseptic technique. Blood collected. Flushed with 10 mL NS. Patient maintains SpO2 saturation greater than 95% on room air. 12:00 Arm band placed on Patient placed in an exam room. iw 12:26 XRAY Chest (1 view) In Process Unspecified. EDMS 12:49 initiated transfer to [facility], faxed chart to [place] ER as requested by [place] transfer bd center. 14:36 pt accepted in transfer to [facility] ER by dr Deutsch admin approval given by Lyla Arthur RN.pt to be transported by ems. 15:00 Patient has correct armband on for positive identification. Placed in gown. Bed in low db position. Call light in reach. Side rails up X 1. Provided Education on: TRANSFER. Client placed on continuous cardiac and pulse oximetry monitoring. NIBP monitoring applied. rescue worker on. Pulse ox on. NIBP on. 15:00 No provider procedures requiring assistance completed. Patient transferred, IV remains db in place. Administered Medications: 11:59 Drug: Aspirin PO Chewable Tablet 324 mg PO once; 81 mg tablets x 4 Route: PO; iw 13:00 Follow up: Response: No adverse reaction db Medication: 15:00 VIS not applicable for this client. db Outcome: 13:03 ER care complete, transfer ordered by . tiffany 15:00 Transferred by ground EMS to [facility] Transfer form completed. db 15:00 Condition: stable 15:00 Instructed on the need for transfer, 15:06 Patient left the ED. db Signatures: Dispatcher [employer] EDMS Samanta Garcia Irene, RN RN iw Nieto, Roman, MD MD rn Benton, Danielle, RN RN db Johnican, Sonceria sj2
[2024-09-22 13:16] LABS: Atypical Lymphocytes 3 %; Blood Morphology Comment NOT SEEN (NOT SEEN); Differential Total Cells Count 100; Eosinophils 18 % (0-3); Lymphocytes 26 % (15-42); Monocytes 9 % (0-10); Platelet Estimate ADEQ; Segmented Neutrophils 44 % (40-80)
[2024-09-23 16:53] VITALS: BP 115/54; TEMP 97.6; O2SAT 98
--- NOTE | 2024-09-25 12:04 | EKG ---
Test Date: 2024-09-22 Test Time: 11:32:56 Second Chef: ADAMS MEASUREMENT RESULTS: Intervals: Rate: 58 DE: 166 QRSD: 92 QT: 400 QTc: 392 [place]: P: 30 DE: 166 QRS: 7 T: 93 INTERPRETIVE STATEMENTS: Sinus bradycardia with premature atrial complexes Otherwise normal ECG Compared to ECG 10/01/2023 19:37:44 Atrial premature complex(es) now present Electronically Signed On 09-25-24 12:01:18 HAND ORNAMENT MAKER by Khai Morgan
== END 2024-09-22 15:06 ==
LOC: ER 11:14
DX: I20.0 Unstable angina (principal); I10 Essential (primary) hypertension; Z95.1 Presence of aortocoronary bypass graft
CPT/HCPCS: 36415; 71045; 80048; 83880; 84484; 85025; 93005; 99285

== ENCOUNTER 2025-06-05 11:24 | Emergency (ER) | payer OTHER ==
--- NOTE | 2025-06-05 12:12 | RAD REPORT ---
EXAMINATION: ONE VIEW CHEST XR CLINICAL INDICATION: COUGH TECHNIQUE: Frontal chest projection is submitted. Examination is limited by patient positioning and t echnique. COMPARISON: 09/22/2024 FINDINGS: The lungs are diffusely emphysematous but grossly clear. The heart is mildly enlarged in size. Sterno terrell. IMPRESSION: No acute intrathoracic abnormalities.
[2025-06-05] MEDS ORDERED: NA CHLORIDE 0.9% 1,000 ML ONE (12:14)
[2025-06-05 12:21] LABS: Absolute Lymphocytes (CBC) 0.6 K/uL (0.7-4.9); Hematocrit 35.8 % (39.6-49.0); Hemoglobin 12.2 g/dL (13.6-17.9); MCH 29.1 pg (27.0-35.0); MCHC 34.0 g/dL (32.0-36.0); MCV 85.6 fL (80-100); MPV 8.6 fL (7.6-11.3); Nucleated RBC Absolute Count 0.0 (0-0); Nucleated Red Blood Cells % 0.1 % (0-0); RBC Red Blood Cell Count 4.18 M/uL (4.33-5.43); White Blood Count 5.10 thou/uL (4.3-10.9)
[2025-06-05 12:27] LABS: PT Prothrombin Time 14.0 SECONDS (10-13.0); Protime INR 1.25
[2025-06-05 12:40] LABS: ALT/SGPT 24.0 U/L (16-61); AST/SGOT 28.0 U/L (15-37); Albumin 3.2 g/dL (3.4-5.0); Albumin/Globulin Ratio 0.8 (1.1-1.8); Alkaline Phosphatase 47.0 U/L (45-117); Anion Gap 12.9 mEq/L (5.0-15.0); BUN Blood Urea Nitrogen 21.0 mg/dL (7-18); Bilirubin Indirect, Calculated 0.4 mg/dL (0.2-0.8); Globulin 3.8 g/dL (2.3-3.5); Glucose Level 95.0 mg/dL (74-106); Lipase 32.0 U/L (13-75); Magnesium 1.5 mg/dL (1.6-2.4); NT PRO-BNP 247.0 pg/mL (<125); Potassium 3.9 mEq/L (3.5-5.1); Troponin High Sensitivity 5.1 pg/mL (<58.9)
[2025-06-05 12:42] LABS: Influenza A Ag Negative; Influenza B Ag Negative; SARS-CoV-2 Antigen Rapid Res Negative (Negative)
[2025-06-05] MEDS ORDERED: CEFTRIAXONE 1000 MG/VIAL ONE (13:01)
[2025-06-05] MEDS ORDERED: NA CHLORIDE 0.9% 2,000 ML ONE (13:01)
[2025-06-05] MEDS ORDERED: NA CHLORIDE 0.9% 100 ML ONE (13:02)
[2025-06-05 13:18] LABS: Urine Microscopic Reflex YN NO UMIC
[2025-06-05 13:29] LABS: White Blood Cell Scan OK (OK)
[2025-06-05 13:30] LABS: Blood Morphology Comment NOTED (NOT SEEN); Teardrop Cell FEW
--- NOTE | 2025-06-05 14:05 | RAD REPORT ---
EXAM: CT CHEST, ABDOMEN AND PELVIS WITHOUT CONTRAST CLINICAL INDICATION: Chest and abdominal pain TECHNIQUE: CT chest, abdomen and pelvis was performed, without IV contrast, as per department protoco l. Axial, sagittal and coronal reconstructions were obtained. One or more of the following dose reduction techniques were used: Automated exposure control, adjustment of the mA and/or kV according to the patient size, and/or iterative reconstruction. Unless otherwise specified, incidental findings do not require dedicated imaging follow-up. The lack of IV and oral contrast limits evaluation of the mediastinum, max, vessels, organs and zohreh l. COMPARISON: 2014 FINDINGS: Lungs are clear. No mediastinal or hilar lymphadenopathy seen. Period 1.5 cm left axillary lymph node No pleural effusion. No pericardial effusion. Coronary arterial calcifications. Cholelithiasis. Multiple para-aortic/caval lymph nodes measuring up to 2 cm. Several additional lymph nodes along the left iliac chain measuring up to 1.4 cm. Mild bilateral inguinal lymph nodes. Largest 9 mm Liver, pancreas, adrenals kidneys and bladder appear grossly normal Mild splenomegaly There is no evidence of diverticulitis Prostate gland mildly enlarged IMPRESSION: Moderate retroperitoneal lymphadenopathy. This could be neoplastic such as lymphoma or inflammatory. 1.5 cm left axillary lymph node Cholelithiasis Mild splenomegaly
--- NOTE | 2025-06-05 15:46 | ER ---
Nurse's Notes [facility] Name: Jr Jane Age: 75 yrs Sex: Male : 1950 Arrival Date: 06/05/2025 Time: 11:24 Bed IW10 Private MD: Diagnosis: Hypotension, unspecified;Severe sepsis without septic shock;Hypomagnesemia;Dehydration;Acute kidney failure, unspecified;Abnormal findings on diagnostic imaging of other abdominal regions, including retroperitoneum-significant retroperitoneal lymphadeopathy Presentation: 06/05 11:35 Chief complaint: Patient states: DIZZINESS, WEAKNESS LOW BP AT HOME/ SYSTOLIC IN 80'S. db DIZZINESS AND WEAKNESS X 1 WEEK FEELING WORSE TODAY. Coronavirus screen: Client denies travel out of the [place] in the last 14 days. At this time, the client does not indicate any symptoms associated with coronavirus-19. Ebola Screen: Patient negative for fever greater than or equal to 101.5 degrees Fahrenheit, and additional compatible Ebola Virus Disease symptoms Patient denies exposure to infectious person. Patient denies travel to an Ebola-affected area in the 21 days before illness onset. No symptoms or risks identified at this time. Initial Sepsis Screen: Does the patient meet any 2 criteria? No. Patient's initial sepsis screen is negative. Does the patient have a suspected source of infection? No. Patient's initial sepsis screen is negative. Risk Assessment: Do you want to hurt yourself or someone else? Patient reports no desire to harm self or others. Onset of symptoms was June 05, 2025. 11:35 Method Of Arrival: Ambulatory db 11:35 Acuity: BALBINA 2 db Triage Assessment: 11:36 General: Appears in no apparent distress. comfortable, Behavior is calm, cooperative. db Pain: Denies pain. Neuro: Level of Consciousness is awake, alert, obeys commands, Oriented to person, place, time, situation, Moves all extremities. Speech is normal, Reports dizziness. Respiratory: Airway is patent Respiratory effort is even, unlabored, Respiratory pattern is regular, symmetrical. Historical: - Allergies: 11:36 Bees; db 11:36 Demerol; db 11:36 PENICILLINS; db - PMHx: 11:36 Depression; Hypertension; Myocardial infarction; Diabetes - NIDDM; TIA; db - PSHx: 11:36 CABG; Stented artery; db - Immunization history:: Adult Immunizations unknown. - Infectious Disease History:: Denies. - Social history:: Smoking status: Patient denies any tobacco usage or history of. - Family history:: not pertinent. Screenin:40 [facility] ED Fall Risk Assessment (Adult) History of falling in the last 3 months, me1 including since admission No falls in past 3 months (0 pts) Confusion or Disorientation No (0 pts) Intoxicated or Sedated No (0 pts) Impaired Gait Yes (1 pt) Mobility Assist Device Used Yes (1 pt) Altered Elimination No (0 pt) Score/Fall Risk Level 0 - 2 = Low Risk Maintained a safe environment, Provided non-skid footwear, Hourly rounding (assess needs \T\ fall precautionary measures) done. Abuse screen: Denies threats or abuse. Nutritional screening: No deficits noted. Tuberculosis screening: No symptoms or risk factors identified. Assessment: 11:40 General: Appears in no apparent distress. ill, well groomed, well developed, well me1 nourished, Behavior is calm, cooperative, appropriate for age, Reports DIZZINESS, WEAKNESS LOW BP AT HOME/ SYSTOLIC IN 80'S. DIZZINESS AND WEAKNESS X 1 WEEK FEELING WORSE TODAY. Pain: Denies pain. Neuro: Level of Consciousness is awake, alert, obeys commands, Oriented to person, place, time, situation, Appropriate for age Reports dizziness, since a week ago. Cardiovascular: Patient's skin is warm and dry. Respiratory: Airway is patent Respiratory effort is even, unlabored, Respiratory pattern is regular, symmetrical. GI: No signs and/or symptoms were reported involving the gastrointestinal system. : No signs and/or symptoms were reported regarding the genitourinary system. EENT: No signs and/or symptoms were reported regarding the EENT system. Derm: Skin is intact, is healthy with good turgor, Skin is normal. Musculoskeletal: Circulation, motion, and sensation intact. Range of motion: Reports generalized weakness for a week. Vital Signs: 11:35 BP 103 / 61; Pulse 66; Resp 16; Temp 97.9(O); Pulse Ox 100% ; Weight 86.64 kg; Height 5 db ft. 8 in. ; 12:12 BP 100 / 61; Pulse 65; Resp 18; Temp 97.7; Pulse Ox 100% ; Pain 0/10; pm7 13:00 BP 113 / 61; Pulse 56; Resp 20; Pulse Ox 100% on R/A; me1 14:00 BP 116 / 67; Pulse 58; Resp 18; Pulse Ox 100% ; me1 15:00 BP 117 / 66; Pulse 58; Resp 17; Pulse Ox 100% ; me1 16:00 BP 119 / 65; Pulse 58; Resp 20; Pulse Ox 100% ; me1 17:00 BP 123 / 69; Pulse 59; Resp 21; Pulse Ox 100% ; me1 18:00 BP 119 / 63; Pulse 72; Resp 20; Pulse Ox 99% on R/A; me1 19:00 BP 119 / 63; Pulse 54; Resp 13; Pulse Ox 99% ; me1 11:35 Body Mass Index 29.04 (86.64 kg, 172.72 cm) db 12:12 Pain Scale: Adult pm7 ED Course: 11:26 Patient arrived in ED. mr 11:32 Travis Puri MD is Attending Physician. antonio 11:36 Triage completed. db 11:36 Arm band placed on Patient placed in an exam room. db 11:40 Patient has correct armband on for positive identification. Bed in low position. Call me1 light in reach. Side rails up X2. Provided Education on: POC. Verbalized understanding.. Client placed on continuous cardiac and pulse oximetry monitoring. NIBP monitoring applied. quality assurance monitor final on. Pulse ox on. NIBP on. 11:40 No provider procedures requiring assistance completed. me1 11:42 Jasmin Friend, RN is Primary Nurse. me1 11:59 Initial lab(s) drawn, by ms, sent to lab. First set of blood cultures drawn by ms, pm7 COVID swab sent to lab. 12:05 XRAY Chest (1 view) In Process Unspecified. EDMS 12:06 Inserted saline lock: 18 gauge in right antecubital area, using aseptic technique. pm7 Blood collected. Flushed with 10 mL NS. 12:06 EKG done, by ED staff, reviewed by Travis Puri MD. pm7 12:25 Second set of blood cultures drawn by ms. pm7 13:12 UA Rfx Henry Cult if indicated Sent. me1 13:12 Urine collected: clean catch specimen, cloudy, tea colored. me1 13:26 CT Chest Abdomen Pelvis W/O Contrast In Process Unspecified. EDMS 15:59 initiated a transfer with the [facility] transfer center at the request of the patient. eb 16:09 faxed patient clinicals to the [facility]. eb 16:[address] Vicente the emergency room doctor residential subcontractor for the [facility] with Dr. Puri for eb patient transfer consultation. 16:28 administrative approval given by Damaris Mayfield/patient has been accepted to the [facility] ER/ Dr. vlad Vicente has accepted the patient in transfer/ report to be called to [phone]. 17:45 Patient transferred, IV remains in place. me1 Administered Medications: 12:54 Discontinued: ns 0.9% 1000 ml IV at 1 bolus Per protocol; to be given as a bolus over antonio 60 minutes 12:18 Drug: NS 0.9% IV 1000 ml IV at 1 bolus Per protocol; to be given as a bolus over 60 me1 minutes Route: IV; Rate: 1 bolus; Site: right antecubital; 12:58 Follow up: Response: No adverse reaction; IV Status: Order to discontinue infusion me1 13:11 Drug: Rocephin IV 1 grams IV at per protocol once; Given slow IV push per pharmacy me1 instructions Route: IV; Rate: per protocol; Site: right antecubital; 15:54 Follow up: Response: No adverse reaction; IV Status: Completed infusion ms1 13:12 Drug: NS 0.9% IV (30 ml/kg) 30 ml/kg IV at bolus once; Sepsis Protocol; to be given as me1 a bolus over 90 minutes Route: IV; Rate: bolus; Site: right antecubital; 15:54 Follow up: Response: No adverse reaction; IV Status: Completed infusion; IV Intake: me1 2599ml 16:16 Drug: Magnesium Sulfate IVPB 2 grams IVPB once over 2 hrs Route: IVPB; Infused Over: 2 me1 hrs; Site: right antecubital; 18:06 Follow up: Response: No adverse reaction; IV Status: Completed infusion [facility] Medication: 11:40 VIS not applicable for this client. me1 Intake: 15:54 IV: 2599ml; Total: 2599ml. me1 Outcome: 15:46 ER care complete, transfer ordered by . [facility] 17:45 Transferred by ground EMS to [facility] Note: Report given to shannan De lToro RN in the ER 17:45 Condition: stable 17:45 Instructed on the need for transfer, 19:36 Patient left the ED. [facility] Addendum: 06/07/2025 11:44 Addendum: Culture Results: Positive blood culture. anaerobic blood culture bottle l l1 growing gram positive cocci in chains and pairs, possible contamination. Signatures: Dispatcher [employer] EDTravis Clement MD MD cha Rivera, Padma, Reg Reg mr PeterShayla Lynsay, RN RN 1 Suze Leon RN RN Jasmin Friend RN RN ms1 Chelita Moura pm7 Corrections: (The following items were deleted from the chart) 06/05 15:56 11:35 Chief complaint: Patient states: DIZZINESS, WEAKNESS LOW BP AT HOME/ SYSTOLIC IN ms1 80'S. DIZZINESS AND WEAKNESS X 1 WEEK FEELING WORSE TODAY 17:23 11:35 Chief complaint: Patient states: DIZZINESS, WEAKNESS LOW BP AT HOME/ SYSTOLIC IN ms1 80'S. DIZZINESS AND WEAKNESS X 1 WEEK FEELING WORSE TODAY [facility] 17:46 17:45 Patient admitted, [place] in place. [place] [id number]
--- NOTE | 2025-06-05 15:46 | EDPHYS ---
Physician Documentation [facility] Name: Jr Jane Age: 75 yrs Sex: Male : 1950 Arrival Date: 06/05/2025 Time: 11:24 Bed [id number] Private MD: ED Physician Travis Puri HPI: 06/05 15:40 This 75 yrs old Male presents to ER via Ambulatory with complaints of Low BP, antonio Dizziness. 15:40 The patient presents with dizziness, generalized weakness, lightheadedness. Onset: The antonio symptoms/episode began/occurred 1 day(s) ago. Context: occurred at home, occurred while the patient was at [facility]. Modifying factors: The symptoms are alleviated by nothing, the symptoms are aggravated by nothing. Associated signs and symptoms: Pertinent positives: nausea. Severity of symptoms: At their worst the symptoms were mild moderate in the emergency department the symptoms have improved moderately. Patient's baseline: Neuro: alert and fully oriented. The patient has not experienced similar symptoms in the past. Historical: - Allergies: 11:36 Bees; db 11:36 Demerol; db 11:36 PENICILLINS; db - PMHx: 11:36 Depression; Hypertension; Myocardial infarction; Diabetes - NIDDM; TIA; db - PSHx: 11:36 CABG; Stented artery; db - Immunization history:: Adult Immunizations unknown. - Infectious Disease History:: Denies. - Social history:: Smoking status: Patient denies any tobacco usage or history of. - Family history:: not pertinent. ROS: 15:40 Constitutional: Negative for fever, chills, and weight loss, Eyes: Negative for injury, antonio pain, redness, and discharge, ENT: Negative for injury, pain, and discharge, Neck: Negative for injury, pain, and swelling, Cardiovascular: Negative for chest pain, palpitations, and edema, Respiratory: Negative for shortness of breath, cough, wheezing, and pleuritic chest pain, Abdomen/GI: Negative for abdominal pain, nausea, vomiting, diarrhea, and constipation, Back: Negative for injury and pain, : Negative for injury, bleeding, discharge, and swelling, MS/Extremity: Negative for injury and deformity, Skin: Negative for injury, rash, and discoloration, Psych: Negative for depression, anxiety, suicide ideation, homicidal ideation, and hallucinations, Allergy/Immunology: Negative for hives, rash, and allergies, Endocrine: Negative for neck swelling, polydipsia, polyuria, polyphagia, and marked weight changes, Hematologic/Lymphatic: Negative for swollen nodes, abnormal bleeding, and unusual bruising, 15:40 Neuro: Positive for dizziness, near syncope, weakness, Exam: 15:40 Constitutional: This is a well developed, well nourished patient who is awake, alert, antonio and in no acute distress. Head/Face: Normocephalic, atraumatic. Eyes: Pupils equal round and reactive to light, extra-ocular motions intact. Lids and lashes normal. Conjunctiva and sclera are non-icteric and not injected. Cornea within normal limits. Periorbital areas with no swelling, redness, or edema. ENT: Nares patent. No nasal discharge, no septal abnormalities noted. Tympanic membranes are normal and external auditory canals are clear. Oropharynx with no redness, swelling, or masses, exudates, or evidence of obstruction, uvula midline. Mucous membranes moist. Neck: Trachea midline, no thyromegaly or masses palpated, and no cervical lymphadenopathy. Supple, full range of motion without nuchal rigidity, or vertebral point tenderness. No Meningismus. Chest/axilla: Normal chest wall appearance and motion. Nontender with no deformity. No lesions are appreciated. Cardiovascular: Regular rate and rhythm with a normal S1 and S2. No gallops, murmurs, or rubs. Normal PMI, no JVD. No pulse deficits. Respiratory: Lungs have equal breath sounds bilaterally, clear to auscultation and percussion. No rales, rhonchi or wheezes noted. No increased work of breathing, no retractions or nasal flaring. Abdomen/GI: Soft, non-tender, with normal bowel sounds. No distension or tympany. No guarding or rebound. No evidence of tenderness throughout. Back: No spinal tenderness. No costovertebral tenderness. Full range of motion. Male : Normal genitalia with no discharge or lesions. Skin: Warm, dry with normal turgor. Normal color with no rashes, no lesions, and no evidence of cellulitis. MS/ Extremity: Pulses equal, no cyanosis. Neurovascular intact. Full, normal range of motion., bilateral aka Neuro: Awake and alert, GCS 15, oriented to person, place, time, and situation. Cranial nerves II-XII grossly intact. Motor strength 5/5 in all extremities. Sensory grossly intact. Cerebellar exam normal. Normal gait. Psych: Awake, alert, with orientation to person, place and time. Behavior, mood, and affect are within normal limits. 15:40 ECG was reviewed by the Attending Physician. Vital Signs: 11:35 BP 103 / 61; Pulse 66; Resp 16; Temp 97.9(O); Pulse Ox 100% ; Weight 86.64 kg; Height 5 db ft. 8 in. ; 12:12 BP 100 / 61; Pulse 65; Resp 18; Temp 97.7; Pulse Ox 100% ; Pain 0/10; pm7 13:00 BP 113 / 61; Pulse 56; Resp 20; Pulse Ox 100% on R/A; me1 14:00 BP 116 / 67; Pulse 58; Resp 18; Pulse Ox 100% ; me1 15:00 BP 117 / 66; Pulse 58; Resp 17; Pulse Ox 100% ; me1 16:00 BP 119 / 65; Pulse 58; Resp 20; Pulse Ox 100% ; me1 17:00 BP 123 / 69; Pulse 59; Resp 21; Pulse Ox 100% ; me1 18:00 BP 119 / 63; Pulse 72; Resp 20; Pulse Ox 99% on R/A; me1 19:00 BP 119 / 63; Pulse 54; Resp 13; Pulse Ox 99% ; me1 11:35 Body Mass Index 29.04 (86.64 kg, 172.72 cm) db 12:12 Pain Scale: Adult pm7 MDM: 11:32 Medical Screening Exam initiated antonio 15:42 Differential diagnosis: cardiac arrhythmia, CVA, generalized weakness, GI bleed, head antonio injury, hypovolemia, idiopathic dizziness, near-syncope, vertigo. Data reviewed: vital signs, nurses notes, lab test result(s), EKG, radiologic studies, CT scan, plain films. Consideration of Admission/Observation Patient was admitted/placed on observation. Escalation of care including admission/observation considered. I considered the following discharge prescriptions or medication management in the emergency department Medications were administered in the Emergency Department. See MAR. Independent interpretation of the following test(s) in the Emergency Department EKG: See my EKG interpretation above. Test considered but Not performed: Ultrasound no 2 d echo. Care significantly affected by the following chronic conditions: Diabetes, Hypertension, Obesity, tia, depression. 06/05 11:34 Order name: Basic Metabolic Panel; Complete Time: 15:06 [facility] 06/05 11:34 Order name: CBC with Diff; Complete Time: 15: [facility] 06/05 11:34 Order name: LFT's; Complete Time: 15: [facility] 06/05 11:34 Order name: Magnesium; Complete Time: 15: [facility] 06/05 11:34 Order name: NT PRO-BNP; Complete Time: 15: [facility] 06/05 11:34 Order name: PT-INR; Complete Time: 15: [facility] 06/05 11:34 Order name: Troponin HS; Complete Time: 15: [facility] 06/05 11:34 Order name: Lipase; Complete Time: 15: [facility] 06/05 11:34 Order name: UA Rfx Henry Cult if indicated; Complete Time: 15: [facility] 06/05 11:34 Order name: COVID-19 Ag + Flu A+B Ag; Complete Time: 15: [facility] 06/05 11:34 Order name: Blood Culture Adult (2) [facility] 06/05 11:34 Order name: Lactate w/ 2H reflex if indic.; Complete Time: 15: [facility] 06/05 12:28 Order name: CBC Smear Scan; Complete Time: 15: [facility] 06/05 12:45 Order name: Ghost Lactate-NO COLLECT Timer; Complete Time: 15: [facility] 06/05 15:30 Order name: Lactate Sepsis 2 HR Follow-up; Complete Time: 15:31 [facility] 06/05 11:34 Order name: XRAY Chest (1 view); Complete Time: 15: [facility] 06/05 12:55 Order name: CT Chest Abdomen Pelvis W/O Contrast; Complete Time: 15: [facility] 06/05 11:34 Order name: EKG; Complete Time: 11:34 [facility] 06/05 11:34 Order name: Cardiac monitoring; Complete Time: 12: [facility] 06/05 11:34 Order name: EKG - Nurse/Tech; Complete Time: 12: [facility] 06/05 11:34 Order name: IV Saline Lock; Complete Time: 12: [facility] 06/05 11:34 Order name: Labs collected and sent; Complete Time: 12: [facility] 06/05 11:34 Order name: O2 Per Protocol; Complete Time: 12:27 [facility] 06/05 11:34 Order name: O2 Sat Monitoring; Complete Time: 12: antonio 06/05 11:34 Order name: IV Saline Lock - Large Bore; Complete Time: 12:05 antonio EC:40 Rate is 62 beats/min. Rhythm is regular. QRS [place] is Normal. [place] interval is normal. QRS antoino interval is normal. QT interval is normal. No Q waves. T waves are Normal. Clinical impression: NSR w/ Non-specific ST/T Changes and No evidence of ischemia. Interpreted by me. Reviewed by me. Administered Medications: 12:54 Discontinued: ns 0.9% 1000 ml IV at 1 bolus Per protocol; to be given as a bolus over antonio 60 minutes 12:18 Drug: NS 0.9% IV 1000 ml IV at 1 bolus Per protocol; to be given as a bolus over 60 me1 minutes Route: IV; Rate: 1 bolus; Site: right antecubital; 12:58 Follow up: Response: No adverse reaction; IV Status: Order to discontinue infusion me1 13:11 Drug: Rocephin IV 1 grams IV at per protocol once; Given slow IV push per pharmacy me1 instructions Route: IV; Rate: per protocol; Site: right antecubital; 15:54 Follow up: Response: No adverse reaction; IV Status: Completed infusion me1 13:12 Drug: NS 0.9% IV (30 ml/kg) 30 ml/kg IV at bolus once; Sepsis Protocol; to be given as me1 a bolus over 90 minutes Route: IV; Rate: bolus; Site: right antecubital; 15:54 Follow up: Response: No adverse reaction; IV Status: Completed infusion; IV Intake: me1 2599ml 16:16 Drug: Magnesium Sulfate IVPB 2 grams IVPB once over 2 hrs Route: IVPB; Infused Over: 2 me1 hrs; Site: right antecubital; 18:06 Follow up: Response: No adverse reaction; IV Status: Completed infusion me1 Disposition Summary: 06/05/25 15:46 Transfer Ordered Notes: Transfer Location: [facility] antonio Reason: Higher level of care antonio Condition: Fair antonio Problem: new antonio Symptoms: have improved antonio Accepting Physician: to hi , per pt(06/05/25 19:36) me1 Diagnosis - Hypotension, unspecified antonio - Severe sepsis without septic shock antonio - Hypomagnesemia antonio - Dehydration antonio - Acute kidney failure, unspecified antonio - Abnormal findings on diagnostic imaging of other abdominal regions, including antonio retroperitoneum - significant retroperitoneal lymphadeopathy Forms: - Medication Reconciliation Form antonio - SBAR form antonio Signatures: Dispatcher [employer] Travis Pablo MD MD cha Benton, Danielle, RN RN db Jasmin Friend RN RN me1 Corrections: (The following items were deleted from the chart) 19:36 15:46 to va , per pt antonio me1
[2025-06-05] MEDS ORDERED: Magnesium Sulfate 2gm IVPB 2 G/50 ML BAG IV ONE (16:11)
[2025-06-05 19:42] VITALS: TEMP 97.7
[2025-06-05 19:52] VITALS: BP 119/63; O2SAT 99
== END 2025-06-05 19:36 ==
LOC: ER 11:24
DX: I95.9 Hypotension, unspecified (principal); R65.20 Severe sepsis without septic shock; N17.9 Acute kidney failure, unspecified; E83.42 Hypomagnesemia; E86.0 Dehydration; R93.5 Abnormal findings on diagnostic imaging of other abdominal regions, including retroperitoneum; I10 Essential (primary) hypertension; Z95.1 Presence of aortocoronary bypass graft; Z11.52 Encounter for screening for COVID-19
CPT/HCPCS: 96365; 96367; 96361; 93005; 87040 ×2; 85025; 80048; 36415; 83735; 87205; 85610; 80076; 83605 ×2; 81003; 84484; 83690; 83880; 71250; 74176; 71045; 99285; 96366; 87428; J3475; J7030 ×2; J0696